=== PATIENT | male | born 1955 | race Caucasian/White ===

== ENCOUNTER → 2020-12-16 10:10 | Outpatient (BNVA) | payer MEDICARE, OTHER, SELFPAY | PROVIDERS: Family Provider Nurse Practitioner; Visit Provider Nurse Practitioner Family | DX: N52.9 Male erectile dysfunction, unspecified (principal); Z13.6 Encounter for screening for cardiovascular disorders | CPT/HCPCS: 80053; 80061; 84443; 85025 ==

== ENCOUNTER 2021-09-03 04:47 | Observation (INO) | payer MEDICARE, OTHER, SELFPAY ==
[2021-09-03 04:55] VITALS: BP 140/78; PULSE 94; RESP 18; TEMP 37.1; O2SAT 95; BMI 19.3
--- NOTE | 2021-09-03 05:03 | ED_ITS ---
Documented by User: Jesus Valdes MD 09/03/21 05:05 HPI - Abdominal Pain General: Chief Complaint: Abdominal Pain Stated Complaint: ABD Pain Cant Pee Time Seen by Provider: 09/03/21 04:49 Source: patient Mode of arrival: ambulatory Limitations: no limitations History of Present Illness: HPI narrative: 66-year-old male who states that he has not been able to urinate since yesterday he states he is having increasing pain he states pain is currently an 8 out of 10. States he is also recently diagnosed with diverticulitis had a CT scan done Monday was on Cipro and Flagyl he states has been taking those meds. He states he has never had urinary retention like this before. He also told him on the CT scan that he had a colon mass. Denies any vomiting or diarrhea Associated Symptoms: Denies chills and fever(s) Review of Systems Const: Denies: fever(s), chills, body aches or change in appetite Eyes: Denies: blurry vision or eye discomfort ENMT: Denies: throat pain or dental pain Card: Denies: chest pain Resp: Denies: dyspnea GI: Reports: abdominal pain : Reports: difficulty urinating Musc: Denies: neck pain or back pain Skin/Breast: Denies: rash Neuro: Denies: headache(s) Psych: Denies: depression David/Lymph: Denies: easy bruising All/Imm: Denies: urticaria PFSH ED PFSH: Medical History Smoker Surgical History History of bladder surgery History of inguinal hernia repair Left Family History Father Smoker Denies family history of Diabetes Cancer Hypertension Social History Smoking and tobacco status: current every day smoker cigarettes Packs smoked per day: 1 Second hand smoke exposure: No Smoking risk assessment/counseling performed?: No Alcohol intake: never Desire information about alcohol rehabilitation?: No Counseling given: No Desire information about substance/drug rehabilitation?: No Counseling given: No Caregiver/support person: No Lives independently: Yes Household members: none Housing: House Marital status: Number of children: 3 service: No Current occupational status: employed History of recent travel: No Current gender identity: Male Physical Exam Const: COMMON NORMALS: no acute distress, patient oriented x3 and healthy appearing HENMT: COMMON NORMALS: normocephalic and atraumatic HEAD & SCALP: normoce phalic and atraumatic Eye: COMMON NORMALS: Equal, round and reactive pupils present and EOMs intact bilaterally PUPIL: Yes Equal, round and reactive pupils present Neck/C-Spine: COMMON NORMALS: full ROM and supple Chest: COMMONS NORMALS: normal inspection of the chest and normal palpation of entire chest wall Resp: COMMON NORMALS: normal respiratory effort, No retractions, No use of accessory muscles and clear to auscultation bilaterally AUSCULTATION: clear to auscultation bilaterally Cardio: COMMON NORMALS: regular rate, regular rhythm and No murmurs present (Cardio) RATE: regular rate RHYTHM: regular rhythm GI: COMMON NORMALS: Normal to inspection, nondistended, normoactive bowel sounds present, Soft to palpation and no masses PALPATION: Yes Soft to palpation OTHER: suprapubic tenderness Extremity: COMMON NORMALS: normal to inspection and full ROM Neuro: COMMON NORMALS: patient oriented x3, moves all extremities and no focal motor deficits Psych: COMMON NORMALS: mental status grossly normal, Normal thought process present and cooperative THOUGHT PROCESS: Normal thought process present Skin: COMMON NORMALS: no rashes or lesions noted and no wounds GENERAL SKIN EXAM: no rashes or lesions noted Course Vital Signs: Vital signs: Vital Signs Temperature 98.7 F 09/03/21 04:55 Pulse Rate 94 09/03/21 04:55 Respiratory Rate 18 09/03/21 06:15 Blood Pressure 140/78 09/03/21 04:55 Pulse Oximetry 95 09/03/21 04:55 MDM - Abdominal Pain Lab Data: Labs: Lab Results 09/03/21 09/03/21 09/03/21 05:14 05:25 05:25 WBC 23.7 10^3/uL H 10 ^3/uL (4.0-10.0) RBC 4.77 10^6/uL 10^6 /uL (4.1-5.3) Hgb 15.5 g/dL g/dL (11.7-16.6) Hct 44.0 % % (42.0-52.0) MCV 92.2 fl fl (80-94) MCH 32.5 pg pg (28.0-34.0) MCHC 35.2 g/dL g/dL (30.0-36.0) RDW 11.7 % L % (12.1-15.1) Plt Count 391 10^3/cmm 10^3 /cmm (130-400) MPV 10.4 fL fL (7.4-10.4) Neut % (Auto) 85.4 % % Lymph % (Auto) 4.1 % % Bureau % (Auto) 9.8 % % Eos % (Auto) 0.0 % % Baso % (Auto) 0.4 % % Neut # (Auto) 20.22 10^3/uL H 1 0^3/uL (1.8-7.7) Lymph # (Auto) 1.0 10^3/uL 10^3/ uL (0.8-4.8) Bureau # (Auto) 2.3 10^3/uL H 10^ 3/uL (0.2-0.9) Eos # (Auto) 0.0 10^3/uL 10^3/ uL (0.0-0.8) Baso # (Auto) 0.1 10^3/uL 10^3/ uL (0.0-0.1) Nucleated RBC % (a uto) 0 % % Nucleated RBCs # 0.0 /100WBC /100W BC Sodium 128 mmol/L L mmol /L (136-145) Potassium 2.8 mmol/L L* mmo l/L (3.5-5.1) Chloride 90 mmol/L L mmol/ L (98-107) Carbon Dioxide 21 mmol/L L mmol/ L (22-29) Anion Gap 19.8 H (5-19) BUN 17 mg/dL mg/dL (8-23) Creatinine 0.7 mg/dL mg/dL (0.7-1.2) GFR Calculation 112.8 mL/min mL/m in (90-130) Glucose 144 mg/dL H mg/dL (65-115) Calculated Osmolal ity 270 mOsm/kg L mOs m/kg (285-295) Calcium 8.2 mg/dL L mg/dL (8.5-10.5) Total Bilirubin 0.3 mg/dL mg/dL (0.15-1.2) AST 11 U/L U/L (0-40) ALT 10 U/L U/L (0-41) Alkaline Phosphata se 96 IU/L IU/L (40-130) Total Protein 5.9 g/dL L g/dL (6.6-8.7) Albumin 3.4 g/dL L g/dL (3.5-5.2) Globulin 2.5 g/dL g/dL (1.3-4.6) Lipase 8 U/L L U/L (13-60) Urine Color Dark yellow (Yellow) Urine Appearance Clear (CLEAR) Urine pH 5 (5-7) Ur Specific Gravit y 1.015 (1.005-1.030) Urine Protein 1+ H (Negative) Urine Glucose (UA) Norm (Normal) Urine Ketones 1+ H (Negative) Urine Blood Trace H (Negative) Urine Nitrate Negative (Negative) Urine Bilirubin 1+ H (Negative) Urine Urobilinogen 1 mg/dL H mg/dL (Negative) Ur Leukocyte Jigna ase Trace H (Negative) Urine RBC Rare /hpf /hpf (0-2) Urine WBC Rare /hpf /hpf (0-5) Ur Squamous Epith Cells 0-4 /hpf H /hpf (0-5) Amorphous Sediment Not Reportable Urine Bacteria None /hpf /hpf (NONE) Hyaline Casts 0-4 /lpf H /lpf Fine Granular Cast s 0-4 /lpf H /lpf Urine Mucus 1+ /hpf /hpf Discharge Plan Discharge Patient Disposition: Admitted As Inpatient Clinical Impression: Abdominal pain, Hypokalemia, Diverticulitis, Colitis Condition: Stable Coding Level of Care Code ED Prints And Drawings Curator for Chg Fwd Exam Comprehensive Documented by User: Rosalva Baker MD 09/03/21 09:23 HPI - Abdominal Pain General: Chief Complaint: Abdominal Pain Stated Complaint: ABD Pain Cant Pee Time Seen by Provider: 09/03/21 04:49 PFSH ED PFSH: Medical History Smoker Surgical History History of bladder surgery History of inguinal hernia repair Left Family History Father Smoker Denies family history of Diabetes Cancer Hypertension Social History Smoking and tobacco status: current every day smoker cigarettes Packs smoked per day: 1 Second hand smoke exposure: No Smoking risk assessment/counseling performed?: No Alcohol intake: never Desire information about alcohol rehabilitation?: No Counseling given: No Desire information about substance/drug rehabilitation?: No Counseling given: No Caregiver/support person: No Lives independently: Yes Household members: none Housing: House Marital status: Number of children: 3 service: No Current occupational status: employed History of recent travel: No Current gender identity: Male Course Vital Signs: Vital signs: Vital Signs Temperature 98.7 F 09/03/21 04:55 Pulse Rate 94 09/03/21 04:55 Respiratory Rate 18 09/03/21 06:15 Blood Pressure 140/78 09/03/21 04:55 Pulse Oximetry 95 09/03/21 04:55 MDM - Abdominal Pain MDM Narrative: Medical decision making narrative: CT is consistent with colitis with possible diverticulitis. K of 2.8. Will replete K. Continues to be in moderate pain. Will admit for IVF and abx. S/p metronidazole and ceftriaxone in the ED. Disposition: admission Lab Data: Labs: Lab Results 09/03/21 09/03/21 09/03/21 05:14 05:25 05:25 WBC 23.7 10^3/uL H 10 ^3/uL (4.0-10.0) RBC 4.77 10^6/uL 10^6 /uL (4.1-5.3) Hgb 15.5 g/dL g/dL (11.7-16.6) Hct 44.0 % % (42.0-52.0) MCV 92.2 fl fl (80-94) MCH 32.5 pg pg (28.0-34.0) MCHC 35.2 g/dL g/dL (30.0-36.0) RDW 11.7 % L % (12.1-15.1) Plt Count 391 10^3/cmm 10^3 /cmm (130-400) MPV 10.4 fL fL (7.4-10.4) Neut % (Auto) 85.4 % % Lymph % (Auto) 4.1 % % Bureau % (Auto) 9.8 % % Eos % (Auto) 0.0 % % Baso % (Auto) 0.4 % % Neut # (Auto) 20.22 10^3/uL H 1 0^3/uL (1.8-7.7) Lymph # (Auto) 1.0 10^3/uL 10^3/ uL (0.8-4.8) Bureau # (Auto) 2.3 10^3/uL H 10^ 3/uL (0.2-0.9) Eos # (Auto) 0.0 10^3/uL 10^3/ uL (0.0-0.8) Baso # (Auto) 0.1 10^3/uL 10^3/ uL (0.0-0.1) Nucleated RBC % (a uto) 0 % % Nucleated RBCs # 0.0 /100WBC /100W BC Sodium 128 mmol/L L mmol /L (136-145) Potassium 2.8 mmol/L L* mmo l/L (3.5-5.1) Chloride 90 mmol/L L mmol/ L (98-107) Carbon Dioxide 21 mmol/L L mmol/ L (22-29) Anion Gap 19.8 H (5-19) BUN 17 mg/dL mg/dL (8-23) Creatinine 0.7 mg/dL mg/dL (0.7-1.2) GFR Calculation 112.8 mL/min mL/m in (90-130) Glucose 144 mg/dL H mg/dL (65-115) Calculated Osmolal ity 270 mOsm/kg L mOs m/kg (285-295) Calcium 8.2 mg/dL L mg/dL (8.5-10.5) Total Bilirubin 0.3 mg/dL mg/dL (0.15-1.2) AST 11 U/L U/L (0-40) ALT 10 U/L U/L (0-41) Alkaline Phosphata se 96 IU/L IU/L (40-130) Total Protein 5.9 g/dL L g/dL (6.6-8.7) Albumin 3.4 g/dL L g/dL (3.5-5.2) Globulin 2.5 g/dL g/dL (1.3-4.6) Lipase 8 U/L L U/L (13-60) Urine Color Dark yellow (Yellow) Urine Appearance Clear (CLEAR) Urine pH 5 (5-7) Ur Specific Gravit y 1.015 (1.005-1.030) Urine Protein 1+ H (Negative) Urine Glucose (UA) Norm (Normal) Urine Ketones 1+ H (Negative) Urine Blood Trace H (Negative) Urine Nitrate Negative (Negative) Urine Bilirubin 1+ H (Negative) Urine Urobilinogen 1 mg/dL H mg/dL (Negative) Ur Leukocyte Jigna ase Trace H (Negative) Urine RBC Rare /hpf /hpf (0-2) Urine WBC Rare /hpf /hpf (0-5) Ur Squamous Epith Cells 0-4 /hpf H /hpf (0-5) Amorphous Sediment Not Reportable Urine Bacteria None /hpf /hpf (NONE) Hyaline Casts 0-4 /lpf H /lpf Fine Granular Cast s 0-4 /lpf H /lpf Urine Mucus 1+ /hpf /hpf Discharge Plan Discharge Patient Disposition: Admitted As Inpatient Clinical Impression: Abdominal pain, Hypokalemia, Diverticulitis, Colitis Condition: Stable Coding Level of Care Code ED Prints And Drawings Curator for Mang Fwd Exam Comprehensive
--- NOTE | 2021-09-03 05:39 | CTR_ITS ---
PROCEDURE INFORMATION: Exam: CT Abdomen And Pelvis With Contrast Exam date and time: 09/03/2021 5:39 AM Age: 66 years old Clinical indication: Abdominal tenderness and bloating; Abdominal pain; Generalized; Prior surgery; Surgery date: 6+ months; Surgery type: Bladder, inguinal hernia repair; Patient HX: Diffuse abd pain x1 week, dysuria HX of diverticulitis TECHNIQUE: Imaging protocol: Computed tomography of the abdomen and pelvis with contrast. Total images: 229 Radiation optimization: All CT scans at this facility use at least one of these dose optimization techniques: automated exposure control; mA and/or kV adjustment per patient size (includes targeted exams where dose is matched to clinical indication); or iterative reconstruction. Contrast material: OMNI 300; Contrast volume: 95 ml; Contrast route: INTRAVENOUS (IV); COMPARISON: CR XR acute abdomen series [id number] 09/03/2021 7:00 AM RADIATION DOSE METRICS: Total DLP (mGy-cm): 883.7 FINDINGS: Lungs: Nonspecific mild bibasilar opacities left greater than right, favoring atelectasis or pneumonia. Liver: Normal. No mass. Gallbladder and bile ducts: Normal. No calcified stones. No ductal dilation. Pancreas: Normal. No ductal dilation. Spleen: Normal. No splenomegaly. Adrenal glands: Normal. No mass. Kidneys and ureters: Normal. No hydronephrosis. Stomach and bowel: Distended colon with prominent folds/wall thickening seen in the distal sigmoid/rectosigmoid colon with a few small diverticuli detected. Findings felt to represent a colitis. Appendix: No evidence of appendicitis. Intraperitoneal space: Unremarkable. No free air. No significant fluid collection. Vasculature: Moderate atherosclerotic disease is evident. Dilated infrarenal aorta measured at 2.4 cm. Incidental phleboliths noted. Lymph nodes: Unremarkable. No enlarged lymph nodes. Urinary bladder: A Castañeda catheter decompresses urinary bladder. Reproductive: Prostatomegaly noted. Bones/joints: Diffuse osteopenia noted. Multilevel degenerative disc disease is noted with vacuum phenomenon. Osteophytes are noted extending from the vertebrae. No acute spinal pathology is detected. Soft tissues: Small bowel contained within a nonobstructive right inguinal hernia. CT/CT abdomen pelvis w con* [id number] IMPRESSION: 1. Nonspecific mild bibasilar opacities left greater than right, favoring atelectasis or pneumonia. 2. Dilated infrarenal aorta measured at 2.4 cm. 3. Small bowel contained within a nonobstructive right inguinal hernia. 4. Distended colon with prominent folds/wall thickening seen in the distal sigmoid/rectosigmoid colon with a few small diverticuli detected. Findings felt to represent a colitis. Radiation Dose CTDIVOL = (mGy): DLP = 883.7 (mGy-cm)
[2021-09-03 05:47] LABS: Bilirubin Urine 1+ (Negative); Blood Urine Trace (Negative); Glucose Urine UA Norm (Normal); Ketones Urine 1+ (Negative); Leukocyte Esterase Urine Trace (Negative); Nitrate Urine Negative (Negative); Protein Urine 1+ (Negative); Specific Gravity, Urine 1.015 (1.005-1.030); Urine Appearance Clear (CLEAR); Urine Color Dark Yellow (Yellow); Urobilinogen Urine 1 mg/dL (Negative); pH Urine 5 (5-7)
[2021-09-03 05:48] LABS: Add Urine Microscopic? YES; RBC Urine RARE /hpf (0-2); Squamous Epithelial Cell Urine 0-4 /hpf (0-5); WBC Urine RARE /hpf (0-5)
[2021-09-03 05:49] LABS: Add Urine Culture? No; Fine Granular Casts Urine 0-4 /lpf; Hyaline Casts Urine 0-4 /lpf; Mucus Urine 1+ /hpf
[2021-09-03 05:59] LABS: Basophils # 0.1 10^3/uL (0.0-0.1); Basophils % 0.4 %; Hemoglobin 15.5 g/dL (11.7-16.6); Lymphocytes % 4.1 %; Mean Corpuscular HGB Conc 35.2 g/dL (30.0-36.0); Mean Corpuscular Hemoglobin 32.5 pg (28.0-34.0); Mean Corpuscular Volume 92.2 fl (80-94); Mean Platelet Volume 10.4 fL (7.4-10.4); Monocytes # 2.3 10^3/uL (0.2-0.9); Monocytes % 9.8 %; Neutrophils # 20.22 10^3/uL (1.8-7.7); Neutrophils % 85.4 %; Nucleated Red Blood Cells % 0 %; Platelet Count 391 10^3/cmm (130-400); Red Blood Count 4.77 10^6/uL (4.1-5.3); Red Cell Distribution Width 11.7 % (12.1-15.1); White Blood Count 23.7 10^3/uL (4.0-10.0)
[2021-09-03 06:15] VITALS: RESP 18
[2021-09-03] MEDS: morphine 4 mg/mL SDV 1 mL IVP (06:15)
[2021-09-03] MEDS: ondansetron 2 mg/ML SDV 2 mL 4 MG IVP (06:15)
--- NOTE | 2021-09-03 06:53 | XR_ITS ---
WS: [id number] Acute abdomen series, AP portable 09/03/2021 Clinical Data: eval free air and sbo Comparison: None. Findings: In the chest there are no nodules, masses or effusions. The heart is normal. The pulmonary vascularity is not increased. There is minimal atelectasis over the surface of left diaphragm. The ao rtic arch and descending thoracic aorta show calcification and tortuosity. No free air is seen beneath the diaphragms. No abnormal intra-abdominal masses or calcifications are seen. There is contrast material within the colon. The colon is dilated. XR/XR acute abdomen series [id number] Impression: 1. Negative chest. 2. Marked colonic dilatation which may represent a severe ileus or colon obstr uction.
[2021-09-03 07:07] LABS: Alanine Aminotransferase 10 U/L (0-41); Albumin Level 3.4 g/dL (3.5-5.2); Alkaline Phosphatase 96 IU/L (40-130); Anion Gap 19.8 (5-19); Aspartate Amino Transferase 11 U/L (0-40); Blood Urea Nitrogen 17 mg/dL (8-23); Calcium 8.2 mg/dL (8.5-10.5); Carbon Dioxide 21 mmol/L (22-29); Chloride 90 mmol/L (98-107); Globulin 2.5 g/dL (1.3-4.6); Glomerular Filtration Rate 112.8 mL/min (90-130); Glucose 144 mg/dL (65-115); Lipase 8 U/L (13-60); Osmolality Calculated 270 mOsm/kg (285-295); Sodium 128 mmol/L (136-145); Total Bilirubin 0.3 mg/dL (0.15-1.2); Total Protein 5.9 g/dL (6.6-8.7)
[2021-09-03 07:08] LABS: Potassium 2.8 mmol/L (3.5-5.1)
[2021-09-03] MEDS: lidocaine 1% 5 ML in potassium chloride premix 100 ML 50 ML IV (08:58)
[2021-09-03] MEDS: cefTRIAXone 1,000 MG in sodium chloride 0.9% (plus) 50 ML 100 MG IV (09:23)
[2021-09-03] MEDS: metroNIDAZOLE 500 MG Tablet PO (09:35)
[2021-09-03 11:31] VITALS: BP 151/76; PULSE 93; RESP 19; O2SAT 92
--- NOTE | 2021-09-03 13:59 | PC.NURSE ---
Pt requesting something mild for pain, prefers Tylenol. Dr. Sandhu called, Dr. Sandhu will put new orders in
--- NOTE | 2021-09-03 14:05 | P.HP_ITS ---
Providers/Chief Complaint Chief Complaint: ABD Pain Cant Pee History of Present Illness Camron Pantoja is a 66 year old male who presented today with chief complaint of worsening abdominal pain. Patient stating that his symptoms started on Monday with diffuse dull abdominal pain which was getting worse and became sharp, he experienced 1 episode of emesis on Monday, he did not notice any fever. He has been constipated recently. Patient is stating that he was diagnosed with diverticulitis few months ago and had an appointment with Dr. Murillo for colonoscopy on next Monday. He is not vaccinated for COVID-19. Because of worsening of his symptoms he decided to come to the hospital for further evaluation For his symptoms he was seen in another facility where he was given ciprofloxa aníbal and Flagyl, he also got contrast study which made him nauseous, for last 24 hours he was not able to urinate much that prompted his visit to the ER His last bowel movement was this morning, Castañeda catheter was placed in the ER he put out 800 cc of urine, CT abdomen pelvis consistent with colitis/diverticulitis. Leukocytosis 23, he does not meet sepsis criteria He received antibiotics in the ER Hemodynamically stable Hypokalemia: Repleted CT/CT abdomen pelvis w con* [id number] IMPRESSION: 1. Nonspecific mild bibasilar opacities left greater than right, favoring atelectasis or pneumonia. 2. Dilated infrarenal aorta measured at 2.4 cm. 3. Small bowel contained within a nonobstructive right inguinal hernia. 4. Distended colon with prominent folds/wall thickening seen in the distal sigmoid/rectosigmoid colon with a few small diverticuli detected. Findings felt to represent a colitis Review of Systems Const: Reports: chills, body aches and fatigue; Denies: fever(s) Eyes: Denies: change in vision ENMT: Denies: throat pain Card: Denies: chest pain Resp: Denies: dyspnea GI: Reports: abdominal pain, nausea, vomiting and constipation : Reports: difficulty urinating; Denies: flank pain Musc: Denies: neck pain Skin/Breast: Denies: rash Neuro: Denies: headache(s) Psych: Denies: anxiety Endo: Denies: polyuria David/Lymph: Denies: easy bruising All/Imm: Denies: urticaria Medications/Allergies Home Medications Medication Instructions Recorded Confirmed Last Taken Type sildenafil 50 mg tablet 50 mg PO DAILY PRN #10 tab 12/16/20 09/03/21 Unknown Rx ciprofloxacin HCl 500 mg PO BID 09/03/21 09/03/21 09/02/21 History cyclobenzaprine 10 mg PO BEDTIME PRN 09/03/21 09/03/21 Unknown History metronidazole 500 mg PO TID 09/03/21 09/03/21 09/02/21 History ondansetron HCl 4 mg PO TID PRN 09/03/21 09/03/21 Unknown History Allergies Allergy/AdvReac Type Severity Reaction Status Date / Time No Known Allergies Allergy Verified 12/16/20 09:39 PFSH Acute PFSH: Medical History Diverticulitis Erectile dysfunction Smoker Surgical History History of bladder surgery History of inguinal hernia repair Left Family History Father Smoker Denies family history of Diabetes Cancer Hypertension Social History Smoking and tobacco status: current every day smoker cigarettes Packs smoked per day: 1 Second hand smoke exposure: No Smoking risk assessment/counseling performed?: No Alcohol intake: never Desire information about alcohol rehabilitation?: No Counseling given: No Desire information about substance/drug rehabilitation?: No Counseling given: No Caregiver/support person: No Lives independently: Yes Household members: none Housing: House Marital status: Number of children: 3 service: No Current occupational status: employed History of recent travel: No Current gender identity: Male Vitals/I&O/Wt Last Vital Signs Temp 98.7 F 09/03/21 04:55 Pulse 93 09/03/21 11:31 Resp 19 H 09/03/21 11:31 BP 151/76 09/03/21 11:31 Pulse Ox 92 09/03/21 11:31 09/02/21 09/03/21 09/03/21 22:59 06:59 14:59 Intake Total 155 / 155 Balance 155 / 155 Weight last 48 hrs Weight 64.864 kg Physical Exam Narrative: EXAM NARRATIVE: Patient is laying supine Saturating well on room air No active respiratory distress S1, S2 Clinically looks dehydrated Abdomen soft nontender bowel sound present Right-sided inguinal hernia which is reducible EOMI, PERRLA Nonfocal neuro exam Appropriate mood and affect Castañeda cath draining concentrated urine No joint swelling Dehydrated, dry skin with wrinkling Urinary Catheter Management^: Castañeda: Cath Placed During This Visit: yes Urinary Catheter Date of Insertion: 09/03/21 Urinary Catheter Time of Insertion: 05:18 Data : 09/03/21 05:25 09/03/21 05:25 A&P Assessment and plan (1) Diverticulitis: Status: Acute (2) Hypokalemia: Status: Acute (3) Abdominal pain: Status: Acute (4) Colitis: Status: Acute Additional A&P Information Colitis/diverticulitis Leukocytosis, no signs of sepsis Start IV antibiotics, keep him on clear liquids Patient will need colonoscopy outpatient within next 4 to 6 weeks he already had an appointment with Dr. Murillo next Monday Last bowel movement this morning, no active signs of colon obstruction, colonic dilation could be ileus Hypokalemia: Repleted Urinary retention: 800 mL urine obtained with placement of Castañeda catheter, patie nt does not want Castañeda catheter placement, start voiding trial, requested in the ER to remove Castañeda catheter Start tamsulosin and finasteride check PSA No back pain No gait ataxia Full code Clear liquid diet DVT prophylaxis Lovenox Infrarenal aortic measurement 2.4 cm Attestations Medical Necessity Statement*: Anticipating discharge within 48 hours Time Spent in Patient Care: Greater than 35 minutes Coding Level of Care Code Acute Doughnut Maker for [facility] Fwd Diagnoses Diverticulitis K57.92 Hypokalemia E87.6 Abdominal pain R10.9 Colitis K52.9
[2021-09-03] MEDS: acetaminophen 500 mg Tablet PO (14:14)
[2021-09-03 15:36] VITALS: BP 135/74; PULSE 98; RESP 19; O2SAT 91
--- NOTE | 2021-09-03 15:37 | PC.NURSE ---
Report called to floor, given to CHARU Hernandez.
[2021-09-03] MEDS: piperacillin-tazobactam 3.375 GM in sodium chloride 0.9% (plus) 50 ML IV ×2 (17:32→21:45)
[2021-09-03] MEDS: sodium chloride 0.9% 1,000 ML 75 ML IV (17:33)
[2021-09-03 20:26] VITALS: BP 142/78; PULSE 90; RESP 17; TEMP 36.7; O2SAT 90
[2021-09-03 20:39] VITALS: BMI 18.9
[2021-09-03 20:52] LABS: Potassium 3.7 mmol/L (3.5-5.1)
--- NOTE | 2021-09-03 21:16 | PC.NURSE ---
Pt declined milk of mag this evening stating I do not want to be going to the bathroom all night . Education given. Pt requested medication in the morning.
[2021-09-03 23:55] VITALS: BP 136/75; PULSE 89; RESP 17; TEMP 36.7; O2SAT 91
[2021-09-04] MEDS: sodium chloride 0.9% 1,000 ML 75 ML IV (03:27)
[2021-09-04] MEDS: magnesium hydroxide 30 mL UDC 15 ML PO (03:36)
[2021-09-04 04:00] VITALS: BP 138/80; PULSE 90; RESP 18; TEMP 36.7; O2SAT 92
--- NOTE | 2021-09-04 04:00 | XRR_ITS ---
PROCEDURE INFORMATION: Exam: XR Abdomen Exam date and time: 09/04/2021 4:00 AM Age: 66 years old Clinical indication: Abdominal pain; Additional info: Ileus TECHNIQUE: Imaging protocol: XR of the abdomen. Views: Frontal supine view of the abdomen. 1 View. Total images: 1 COMPARISON: CT abdomen pelvis w con* [id number] 09/03/2021 7:20 AM FINDINGS: Gastrointestinal tract: Distended colonic loops again noted and extending to rectosigmoid colon similar in appearance to prior CT. Vasculature: Incidental phleboliths noted. Bones/joints: Unremarkable. Soft tissues: Small bowel loops noted within the right scrotum consistent with inguinal hernia unchanged. XR/XR K[facility] portable [id number] IMPRESSION: 1. Distended colonic loops again noted and extending to rectosigmoid colon similar in appearance to prior CT. 2. Small bowel loops noted within the right scrotum consistent with inguinal hernia unchanged. Radiation Dose CTDIVOL = (mGy): DLP = (mGy-cm)
[2021-09-04] MEDS: piperacillin-tazobactam 3.375 GM in sodium chloride 0.9% (plus) 50 ML IV (06:05)
[2021-09-04 06:22] LABS: Basophils # 0.1 10^3/uL (0.0-0.1); Basophils % 0.3 %; Hematocrit 46.6 % (42.0-52.0); Hemoglobin 15.1 g/dL (11.7-16.6); Lymphocytes # 1.2 10^3/uL (0.8-4.8); Lymphocytes % 5.4 %; Mean Corpuscular HGB Conc 32.4 g/dL (30.0-36.0); Mean Corpuscular Hemoglobin 31.5 pg (28.0-34.0); Mean Corpuscular Volume 97.1 fl (80-94); Mean Platelet Volume 11.4 fL (7.4-10.4); Monocytes # 1.9 10^3/uL (0.2-0.9); Monocytes % 8.4 %; Neutrophils # 18.87 10^3/uL (1.8-7.7); Neutrophils % 85.4 %; Nucleated Red Blood Cells % 0 %; Platelet Count 320 10^3/cmm (130-400); Red Cell Distribution Width 11.6 % (12.1-15.1); White Blood Count 22.1 10^3/uL (4.0-10.0)
[2021-09-04 08:00] VITALS: BP 136/86; PULSE 84; RESP 16; TEMP 36.9; O2SAT 98
[2021-09-04 08:51] LABS: Alanine Aminotransferase 12 U/L (0-41); Albumin Level 3.5 g/dL (3.5-5.2); Alkaline Phosphatase 97 IU/L (40-130); Aspartate Amino Transferase 14 U/L (0-40); Blood Urea Nitrogen 10 mg/dL (8-23); Carbon Dioxide 23 mmol/L (22-29); Chloride 99 mmol/L (98-107); Globulin 2.1 g/dL (1.3-4.6); Glomerular Filtration Rate 166.4 mL/min (90-130); Glucose 104 mg/dL (65-115); Magnesium 2.2 mg/dL (1.7-2.3); Osmolality Calculated 277 mOsm/kg (285-295); Sodium 134 mmol/L (136-145); Total Bilirubin 0.4 mg/dL (0.15-1.2); Total Protein 5.6 g/dL (6.6-8.7)
[2021-09-04 08:55] LABS: Anion Gap 15.9 (5-19); Potassium 3.9 mmol/L (3.5-5.1)
[2021-09-04 11:11] VITALS: BP 160/84; PULSE 96; RESP 16; TEMP 36.8; O2SAT 90
--- NOTE | 2021-09-04 11:11 | PM.DCS ---
Discharge Providers Date of Admission: 09/03/21 09:21 Date of Discharge: September 04, 2021 Attending Provider at Admission: Ty Sun MD Attending Provider at Discharge: Ty Sun MD Diagnoses at Discharge Discharge Diagnosis (1) Diverticulitis: Status: Acute (2) Hypokalemia: Status: Acute (3) Abdominal pain: Status: Acute (4) Colitis: Status: Acute Reason for Visit Reason for Visit: [place] [facility] Hospital Course History of Present Illness Camron Pantoja is a 66 year old male who presented today with chief complaint of worsening abdominal pain. Patient stating that his symptoms started on Monday with diffuse dull abdominal pain which was getting worse and became sharp, he experienced 1 episode of emesis on Monday, he did not notice any fever. He has been constipated recently. Patient is stating that he was diagnosed with diverticulitis few months ago and had an appointment with Dr. Murillo for colonoscopy on next Monday. He is not vaccinated for COVID-19. Because of worsening of his symptoms he decided to come to the hospital for further evaluation For his symptoms he was seen in another facility where he was given ciprofloxacin and Flagyl, he also got contrast study which made him nauseous, for last 24 hours he was not able to urinate much that prompted his visit to the ER His last bowel movement was this morning, Castañeda catheter was placed in the ER he put out 800 cc of urine, CT abdomen pelvis consistent with colitis/diverticulitis. Leukocytosis 23, he does not meet sepsis criteria He received antibiotics in the ER Hemodynamically stable Hypokalemia: Repleted CT/CT abdomen pelvis w con* [id number] IMPRESSION: 1. Nonspecific mild bibasilar opacities left greater than right, favoring atelectasis or pneumonia. 2. Dilated infrarenal aorta measured at 2.4 cm. 3. Small bowel contained within a nonobstructive right inguinal hernia. 4. Distended colon with prominent folds/wall thickening seen in the distal sigmoid/rectosigmoid colon with a few small diverticuli detected. Findings felt to represent a colitis Hosp Course Patient was admitted for management evaluation of difficulty urination and colitis. He was started on clear liquid diet, IV Zosyn, Castañeda catheter was placed in the ER which revealed 800 cc of urine right away, patient was not comfortable with a Castañeda catheter, requested voiding trial, he was able to void 4-5 times during his hospitalization, with clear liquid diet he did not experience any nausea or vomiting or abdominal pain. At home she has finished 5 to 7 days of ciprofloxacin and Flagyl which I am willing to continue to finish 14-day regimen. He remained afebrile, creatinine stayed normal. He did not want to stay until Monday and requested to be discharged home. At the time of discharge, ciprofloxacin, Flagyl, tamsulosin were added. He has history of chronic right inguinal hernia, did not show any signs of strangulation or obstruction, it is reducible, he has an appointment with Dr. Murillo for colonoscopy. PSA within normal range No signs of UTI. Physical Exam Narrative: EXAM NARRATIVE: male Euvolemic Abdomen soft Tolerating clear liquid diet Saturating well on room air Able to void urine EOMI, PERRLA S1, S2 Nonfocal neuro exam Urinary Catheter Management^: Castañeda: Cath Placed During This Visit: yes Urinary Catheter Date of Insertion: 09/03/21 Urinary Catheter Time of Insertion: 05:18 Discharge Data Data Completed and Pending: Completed Studies During Hospitalization Category Date Time Status CT abdomen pelvis w con* [id number] Urge nt Cat Scan 09/03/21 05:39 Completed XR KUB portable 7 4018 AM LABS Exams 09/04/21 04:00 Completed XR acute abdomen series [id number] Urgen t Exams 09/03/21 06:53 Completed Labs from last 24 hours 09/04/21 09/04/21 09/04/21 08:14 06:13 06:13 WBC RBC Hgb Hct MCV MCH MCHC RDW Plt Count MPV Neut % (Auto) Lymph % (Auto) [place] % (Auto) Eos % (Auto) Baso % (Auto) Neut # (Auto) Lymph # (Auto) [place] # (Auto) Eos # (Auto) Baso # (Auto) Nucleated RBC % (a uto) Nucleated RBCs # Sodium 134 L Cancelled Potassium 3.9 Cancelled Chloride 99 Cancelled Carbon Dioxide 23 Cancelled Anion Gap 15.9 Cancelled BUN 10 Cancelled Creatinine 0.5 L Cancelled GFR Calculation 166.4 H Cancelled Glucose 104 Cancelled Calculated Osmolal ity 277 L Cancelled Calcium 8.0 L Cancelled Magnesium 2.2 Cancelled Total Bilirubin 0.4 Cancelled AST 14 Cancelled ALT 12 Cancelled Alkaline Phosphata se 97 Cancelled Total Protein 5.6 L Cancelled Albumin 3.5 Cancelled Globulin 2.1 Cancelled Prostate Specific Ag 09/04/21 09/03/21 09/03/21 06:13 20:20 05:25 WBC 22.1 H RBC 4.80 Hgb 15.1 Hct 46.6 MCV 97.1 H D MCH 31.5 MCHC 32.4 D RDW 11.6 L Plt Count 320 MPV 11.4 H Neut % (Auto) 85.4 Lymph % (Auto) 5.4 [place] % (Auto) 8.4 Eos % (Auto) 0.0 Baso % (Auto) 0.3 Neut # (Auto) 18.87 H Lymph # (Auto) 1.2 [place] # (Auto) 1.9 H Eos # (Auto) 0.0 Baso # (Auto) 0.1 Nucleated RBC % (a uto) 0 Nucleated RBCs # 0.0 Sodium Potassium 3.7 Chloride Carbon Dioxide Anion Gap BUN Creatinine GFR Calculation Glucose Calculated Osmolal ity Calcium Magnesium Total Bilirubin AST ALT Alkaline Phosphata se Total Protein Albumin Globulin Prostate Specific Ag 2.220 Vitals: Last Vital Signs Temp 98.5 F 09/04/21 08:00 Pulse 84 09/04/21 08:00 Resp 16 09/04/21 08:00 BP 136/86 09/04/21 08:00 Pulse Ox 98 09/04/21 08:00 Discharge Plan Discharge Patient Disposition: Home Condition: Stable Prescriptions: New tamsulosin 0.4 mg Capsule 0.4 mg PO DAILY Qty: 30 RF: 2 Flagyl 500 mg tablet 500 mg PO Q8H 7 Days Qty: 21 RF: 0 ciprofloxacin HCl 500 mg tablet 500 mg PO Q12H Qty: 20 RF: 0 Zofran 4 mg tablet 4 mg PO DAILY 3 Days Qty: 10 RF: 0 Continued sildenafil [Viagra] 50 mg tablet 50 mg PO DAILY PRN (Reason: sexual activity) Qty: 10 RF: 3 ondansetron HCl 4 mg tablet 4 mg PO TID PRN (Reason: Nausea) RF: 0 metronidazole 500 mg tablet 500 mg PO TID RF: 0 ciprofloxacin HCl 500 mg tablet 500 mg PO BID RF: 0 cyclobenzaprine 10 mg tablet 10 mg PO BEDTIME PRN (Reason: Muscle Pain) RF: 0 Discharge Orders: Discharge Order (Routine); Ordered 09/04/21 Ordered By: Ty Sun Patient Instructions: Ciprofloxacin (By mouth) (Cipro), Metronidazole (By mouth) (Flagyl, Flagyl 375, Flagyl ER), Ondansetron (By mouth) (Zofran, Zofran ODT, Zuplenz), Tamsulosin (By mouth) (Flomax), Diverticulitis (DC), Colitis (ED), Opioid Safety Discharge Attestations Time Spent in Discharge Care*: less than 30 min Quality Metrics Clinical Quality Measures During this hospital stay, did patient experience: None Coding Level of Care Code Acute Chg FW DC note Diagnoses Diverticulitis K57.92 Hypokalemia E87.6 Abdominal pain R10.9 Colitis K52.9
== END 2021-09-04 12:36 | disposition home or self-care (01) ==
LOC: ER 11:43 → MEDSURG 15:02
PROVIDERS: Emergency Medicine; Student in an Organized Health Care Education/Training Program; Admitting Provider Internal Medicine; Emergency Provider Emergency Medicine; Visit Provider Internal Medicine
DX: K57.92 Diverticulitis of intestine, part unspecified, without perforation or abscess without bleeding (principal); E87.6 Hypokalemia; K52.9 Noninfective gastroenteritis and colitis, unspecified; R10.84 Generalized abdominal pain; R33.9 Retention of urine, unspecified
CPT/HCPCS: 36415; 51702; 74018; 74022; 74177; 80053; 81001; 83690; 83735; 84132; 84153; 85025; 96365; 96366; 96367; 96375; 99291; G0378; J0696; J2270; J2405; J2543; J3480; J7030; Q9967

== ENCOUNTER 2021-09-09 07:54 | Inpatient (IN) | payer MEDICARE, OTHER, SELFPAY ==
[2021-09-09] VITALS (20 sets, daily range): BP systolic 95–169; BP diastolic 61–98; PULSE 82–104; RESP 10–18; TEMP 36–36.8; O2SAT 90–100; BMI 19.3
--- NOTE | 2021-09-09 08:25 | W.ED.ABDPA2 ---
HPI - Abdominal Pain General: Chief Complaint: Abdominal Pain Stated Complaint: ABD PAIN Time Seen by Provider: 09/09/21 08:22 History of Present Illness: HPI narrative: 66-year-old with history of diverticulitis presents due to abdominal pain and distention. States this is been worsening for the past 2 weeks. No nausea vomiting diarrhea or constipation. Last bowel movement was this morning. Denies any chest pain or shortness of breath. Denies fevers or chills. Denies history of liver disease or heart failure. Review of Systems Narrative: - CONSTITUTIONAL: Denies weight loss, fever and chills. - HEENT: Denies changes in vision and hearing. - RESPIRATORY: Denies SOB and cough. - CV: Denies palpitations and CP. - GI: As above - : Denies dysuria and urinary frequency. - MSK: Denies myalgia and joint pain. - SKIN: Denies rash and pruritus. - NEUROLOGICAL: Denies headache, weakness, numbness and syncope. - PSYCHIATRIC: Denies suicidal ideation PFSH ED PFSH: Medical History Diverticulitis Erectile dysfunction Smoker Surgical History History of bladder surgery History of inguinal hernia repair Left Family History Father Smoker Denies family history of Diabetes Cancer Hypertension Social History Smoking and tobacco status: current every day smoker cigarettes Packs smoked per day: 1 Second hand smoke exposure: No Smoking risk assessment/counseling performed?: No Alcohol intake: never Desire information about alcohol rehabilitation?: No Counseling given: No Desire information about substance/drug rehabilitation?: No Counseling given: No Caregiver/support person: No Lives independently: Yes Household members: none Housing: House Marital status: Number of children: 3 service: No Current occupational status: employed History of recent travel: No Current gender identity: Male Physical Exam Narrative: EXAM NARRATIVE: - GENERAL: Alert and oriented x 3. No acute distress. Well-nourished. - EYES: EOMI. Anicteric. - HENT: Atraumatic, no C-spine tenderness. Moist mucous membranes. No scleral icterus. No cervical lymphadenopathy. - LUNGS: Clear to auscultation bilaterally. No accessory muscle use. Equal lung sounds bilaterally. No respiratory distress. - CARDIOVASCULAR: Regular rate and rhythm. No murmur. No JVD. - ABDOMEN: Mild distention diffuse tenderness. Negative CVA tenderness bilaterally, no rebound or guarding, negative Guillen sign. No palpable masses. - EXTREMITIES: No edema. Non-tender. - SKIN: No rashes or lesions. Warm. - NEUROLOGIC: No meningismus or focal neurological deficits. CN II-XII grossly intact. - PSYCHIATRIC: Cooperative. Appropriate mood and affect. Course Vital Signs: Vital signs: Vital Signs Temperature 97.2 F L 09/09/21 08:14 Pulse Rate 99 09/09/21 08:08 Respiratory Rate 18 09/09/21 08:58 Blood Pressure 158/92 09/09/21 08:08 Pulse Oximetry 93 09/09/21 08:58 MDM - Abdominal Pain MDM Narrative: Medical decision making narrative: 66-year-old male with history of diverticulitis presents due to abdominal pain. Has diffuse abdominal tenderness. White count is elevated to 30s. It is concern for sepsis and sepsis order set initiated. CT scan concerning for pneumatosis and mesenteric ischemia. Discussed with surgery. He will likely require being taken to the OR. Further evaluation management per surgery team. Patient in stable condition. Lab Data: Labs: Lab Results 09/09/21 09/09/21 09/09/21 08:19 08:19 08:19 WBC 34.0 10^3/uL H* 1 0^3/uL (4.0-10.0) RBC 4.77 10^6/uL 10^6 /uL (4.1-5.3) Hgb 15.3 g/dL g/dL (11.7-16.6) Hct 43.0 % % (42.0-52.0) MCV 90.1 fl fl (80-94) MCH 32.1 pg pg (28.0-34.0) MCHC 35.6 g/dL g/dL (30.0-36.0) RDW 11.9 % L % (12.1-15.1) Plt Count 565 10^3/cmm H 10 ^3/cmm (130-400) MPV 9.5 fL fL (7.4-10.4) Neut % (Auto) 88.4 % % Lymph % (Auto) 3.9 % % [place] % (Auto) 6.1 % % Eos % (Auto) 0.0 % % Baso % (Auto) 0.3 % % Neut # (Auto) 30.08 10^3/uL H 1 0^3/uL (1.8-7.7) Lymph # (Auto) 1.3 10^3/uL 10^3/ uL (0.8-4.8) [place] # (Auto) 2.1 10^3/uL H 10^ 3/uL (0.2-0.9) Eos # (Auto) 0.0 10^3/uL 10^3/ uL (0.0-0.8) Baso # (Auto) 0.1 10^3/uL 10^3/ uL (0.0-0.1) Nucleated RBC % (a uto) 0 % % Nucleated RBCs # 0.0 /100WBC /100W BC Sodium 128 mmol/L L mmol /L (136-145) Potassium 3.2 mmol/L L mmol /L (3.5-5.1) Chloride 89 mmol/L L mmol/ L (98-107) Carbon Dioxide 23 mmol/L mmol/L (22-29) Anion Gap 19.2 H (5-19) BUN 12 mg/dL mg/dL (8-23) Creatinine 0.6 mg/dL L mg/dL (0.7-1.2) GFR Calculation 134.8 mL/min H mL /min (90-130) Glucose 164 mg/dL H mg/dL (65-115) Calculated Osmolal ity 269 mOsm/kg L mOs m/kg (285-295) Lactate 1.5 mmol/L mmol/L (0.5-2.2) Calcium 8.3 mg/dL L mg/dL (8.5-10.5) Total Bilirubin 0.2 mg/dL mg/dL (0.15-1.2) AST 15 U/L U/L (0-40) ALT 24 U/L U/L (0-41) Alkaline Phosphata se 114 IU/L IU/L (40-130) Total Protein 5.8 g/dL L g/dL (6.6-8.7) Albumin 3.4 g/dL L g/dL (3.5-5.2) Globulin 2.4 g/dL g/dL (1.3-4.6) Lipase 24 U/L U/L (13-60) SARS-CoV-2 Ag (Rap id) 09/09/21 09/09/21 09:11 09:20 WBC RBC Hgb Hct MCV MCH MCHC RDW Plt Count MPV Neut % (Auto) Lymph % (Auto) [place] % (Auto) Eos % (Auto) Baso % (Auto) Neut # (Auto) Lymph # (Auto) [place] # (Auto) Eos # (Auto) Baso # (Auto) Nucleated RBC % (a uto) Nucleated RBCs # Sodium Potassium Chloride Carbon Dioxide Anion Gap BUN Creatinine GFR Calculation Glucose Calculated Osmolal ity Lactate 1.0 mmol/L mmol/L (0.5-2.2) Calcium Total Bilirubin AST ALT Alkaline Phosphata se Total Protein Albumin Globulin Lipase SARS-CoV-2 Ag (Rap id) Negative (Negative) Discharge Plan Discharge Prescriptions: No Action sildenafil [Viagra] 50 mg tablet 50 mg PO DAILY PRN (Reason: sexual activity) Qty: 10 RF: 3 Tylenol Ex Str Rapid Release 500 mg Tablet 1,000 mg PO QPM RF: 0 nicotine 21 mg/24 hr Patch 24 Hour 1 patch TRANSDERMAL DAILY RF: 0 ibuprofen 200 mg Tablet 800 mg PO DAILY RF: 0 metronidazole [Flagyl] 500 mg tablet 500 mg PO Q8H RF: 0 ciprofloxacin HCl 500 mg tablet 500 mg PO Q12H RF: 0 tamsulosin 0.4 mg capsule 0.4 mg PO DAILY@12 RF: 0 ondansetron HCl 4 mg tablet 4 mg PO TID PRN (Reason: Nausea) RF: 0 cyclobenzaprine 10 mg tablet 10 mg PO BEDTIME PRN (Reason: Muscle Pain) RF: 0 Coding Level of Care Code ED Emergency Room Clinician for Cherri Gasca
--- NOTE | 2021-09-09 08:28 | CT_ITS ---
WS: [id number] CT ABDOMEN AND PELVIS WITH CONTRAST HISTORY: Upper abdominal pain for 2 weeks. TECHNIQUE: Imaging performed of the abdomen and pelvis with IV contrast. Single phase imaging of the abdomen. Coronal and sagittal reformats are submitted. All CT scans at [facility] use at [address] one of these dose optimization techniques: automated exposure control; mA and/or kV adjustment per patient size (includes targeted exams where dose is matched to clinical indication); or iterative re construction. IV CONTRAST: Omnipaque 300; 95 mL IV. Oral contrast: No DLP: 1210.81 mGy.cm COMPARISON: 09/03/2021 Lower thorax: Scattered bibasilar opacifications and interstitial thickening. Subsegmental LEFT basil ar atelectasis. There is also small LEFT pleural effusion which has progressed minimally since the pr ior study. Heart is normal size. No hiatal hernia. Liver/biliary system: Normal size with no intrahepatic dilatation. Gallbladder: Contracted gallbladder. Pancreas: Atrophic pancreas. No duct dilatation. Spleen: Normal size spleen. No mass or infarct. Adrenal glands: Normal. Right kidney: Normal. Left kidney: Normal. Aorta: Mild atherosclerosis with no aneurysm. Mild ectasia. Lymphadenopathy: None. Free fluid: There is a small amount of fluid within the peritoneal cavity which is new since the prio r study. GI tract: There is severe colonic dilatation predominantly with air and a small amount of retained fe meena material. In the sigmoid region there is severe diffuse wall thickening with narrowing of the lum en. Small foci of air extending through the mucosa are highly suspicious for pneumatosis. Mucosal thi ckening and involvement of the distal sigmoid and rectum measures 9.4 cm. There is also marked dilata tion of the small bowel loops. Patient has a known RIGHT inguinal hernia containing small bowel. Ther e is air distention of the small bowel loops in the RIGHT inguinal hernia. Cannot exclude partial obs truction. No transition point. The extent of the hernia contained within the scrotum has decreased si nce the prior study. Abdominal wall: Unremarkable abdominal wall. No hernia. Pelvis: Markedly dilated loops of GI tract within the pelvis. Urinary bladder is only mildly distende d. There is a large RIGHT hydrocele. Osteopenia. Bones: Unremarkable. CT/CT abdomen pelvis w con* [id number] IMPRESSION: 1. Abnormal appearance of the distal sigmoid extending into the rectum over a length of 9.4 cm. There is diffuse wall thickening with narrowing of the lumen and findings suspicious for pneumatosis. Highly suspicious for ischemic disease . Underlying neoplasm not completely excluded. 2. Marked fluid and air distention of the small bowel. 3. Marked gaseous distention throughout the colon which has progressed. There is a change in caliber in the distal sigmoid in the area suspicious for ischemi a. 4. Patient has a known RIGHT inguinal hernia containing a small bowel loop. Th ere is mild fluid distention of this small bowel loop but no transition point. Less small bowel contained within the scrotum as compared to 09/03/2021. 5. Small LEFT pleural effusion and LEFT basilar atelectasis. 6. No definite free air identified. Notified Jordi Borges MD at 09/09/2021 9:24 AM.
[2021-09-09 08:35] LABS: Basophils # 0.1 10^3/uL (0.0-0.1); Basophils % 0.3 %; Hemoglobin 15.3 g/dL (11.7-16.6); Lymphocytes # 1.3 10^3/uL (0.8-4.8); Lymphocytes % 3.9 %; Mean Corpuscular HGB Conc 35.6 g/dL (30.0-36.0); Mean Corpuscular Hemoglobin 32.1 pg (28.0-34.0); Mean Corpuscular Volume 90.1 fl (80-94); Mean Platelet Volume 9.5 fL (7.4-10.4); Monocytes # 2.1 10^3/uL (0.2-0.9); Monocytes % 6.1 %; Neutrophils # 30.08 10^3/uL (1.8-7.7); Neutrophils % 88.4 %; Nucleated Red Blood Cells % 0 %; Platelet Count 565 10^3/cmm (130-400); Red Blood Count 4.77 10^6/uL (4.1-5.3); Red Cell Distribution Width 11.9 % (12.1-15.1)
[2021-09-09] MEDS: iohexol 300 mg/mL 100 mL Btl IV (08:46)
[2021-09-09 08:53] LABS: Lactate (Lactic Acid level) 1.5 mmol/L (0.5-2.2)
[2021-09-09 08:54] LABS: Alanine Aminotransferase 24 U/L (0-41); Albumin Level 3.4 g/dL (3.5-5.2); Alkaline Phosphatase 114 IU/L (40-130); Anion Gap 19.2 (5-19); Aspartate Amino Transferase 15 U/L (0-40); Blood Urea Nitrogen 12 mg/dL (8-23); Calcium 8.3 mg/dL (8.5-10.5); Carbon Dioxide 23 mmol/L (22-29); Chloride 89 mmol/L (98-107); Globulin 2.4 g/dL (1.3-4.6); Glomerular Filtration Rate 134.8 mL/min (90-130); Glucose 164 mg/dL (65-115); Lipase 24 U/L (13-60); Osmolality Calculated 269 mOsm/kg (285-295); Potassium 3.2 mmol/L (3.5-5.1); Sodium 128 mmol/L (136-145); Total Bilirubin 0.2 mg/dL (0.15-1.2); Total Protein 5.8 g/dL (6.6-8.7)
[2021-09-09] MEDS: ondansetron 2 mg/ML SDV 2 mL 4 MG IVP (08:57)
[2021-09-09] MEDS: sodium chloride 0.9% 500 ML 999 ML IV (08:57)
[2021-09-09] MEDS: morphine 4 mg/mL SDV 1 mL IVP (08:58)
[2021-09-09] MEDS: piperacillin-tazobactam 3.375 GM in sodium chloride 0.9% (plus) 50 ML IV ×2 (09:08→18:14)
[2021-09-09] MEDS: sodium chloride 0.9% 1,000 ML 999 ML IV (09:09)
[2021-09-09] MEDS: vancomycin 1,000 MG in sodium chloride 0.9% 250 ML 250 MG IV (09:35)
[2021-09-09 09:40] LABS: SARS Covid-2 Antigen Negative (Negative)
--- NOTE | 2021-09-09 10:12 | P.HP_ITS ---
Providers/Chief Complaint Admitting Physician: Ceasar Leung MD Chief Complaint: ABD PAIN History of Present Illness Chief Complaint: Tummy hurt History of present illness: Camron Pantoja is a 66 year old male with history of recurrent episodes of diverticulitis with recent hospitalization back in 09/03/2021 and patient was supposed to be getting an outside colonoscopy as he never had [address] Murillo but that did not take place. Patient at that time was treated conservatively and was discharged home and he presents today to the ER with worsening abdominal pain and was found to have alarming findingS on the CT scan; 1. Abnormal appearance of the distal sigmoid extending into the rectum over a length of 9.4 cm. There is diffuse wall thickening with narrowing of the lumen and findings suspicious for pneumatosis. Highly suspicious for ischemic disease. Underlying neoplasm not completely excluded. 2. Marked fluid and air distention of the small bowel. 3. Marked gaseous distention throughout the colon which has progressed. There is a change in caliber in the distal sigmoid in the area suspicious for isc hemia. 4. Patient has a known RIGHT inguinal hernia containing a small bowel loop. There is mild fluid distention of this small bowel loop but no transition point. Less small bowel contained within the scrotum as compared to 09/03/2021. 5. Small LEFT pleural effusion and LEFT basilar atelectasis. 6. No definite free air identified. General surgery was consulted. Patient was seen and evaluated in the emergency department for potential intervention. Review of Systems General: Reports: 10 or more systems reviewed and unremarkable except in HPI and below Medications/Allergies Home Medications Medication Instructions Recorded Confirmed Last Taken Type sildenafil 50 mg tablet 50 mg PO DAILY PRN #10 tab 12/16/20 09/09/21 Unknown Rx cyclobenzaprine 10 mg PO BEDTIME PRN 09/03/21 09/09/21 Unknown History ondansetron HCl 4 mg PO TID PRN 09/03/21 09/09/21 Unknown History acetaminophen [Tylenol Ex Str 1,000 mg PO QPM 09/09/21 09/09/21 09/08/21 14:00 History Rapid Release] ciprofloxacin HCl 500 mg PO Q12H 09/09/21 09/09/21 09/08/21 History ibuprofen 800 mg PO DAILY 09/09/21 09/09/21 09/07/21 History metronidazole [Flagyl] 500 mg PO Q8H 09/09/21 09/09/21 09/08/21 History nicotine 1 patch TRANSDERMAL DAILY 09/09/21 09/09/21 09/09/21 07:30 History tamsulosin 0.4 mg PO DAILY@12 09/09/21 09/09/21 09/08/21 12:00 History Allergies Allergy/AdvReac Type Severity Reaction Status Date / Time No Known Allergies Allergy Verified 09/09/21 10:48 PFSH Acute PFSH: Medical History Diverticulitis Erectile dysfunction Smoker Surgical History History of bladder surgery History of inguinal hernia repair Left Family History Father Smoker Denies family history of Diabetes Cancer Hypertension Social History Smoking and tobacco status: current every day smoker cigarettes Packs smoked per day: 1 Second hand smoke exposure: No Smoking risk assessment/counseling performed?: No Alcohol intake: never Desire information about alcohol rehabilitation?: No Counseling given: No Desire information about substance/drug rehabilitation?: No Counseling given: No Caregiver/support person: No Lives independently: Yes Household members: none Housing: House Marital status: Number of children: 3 service: No Current occupational status: employed History of recent travel: No Current gender identity: Male Vitals/I&O/Wt Last Vital Signs Temp 97.2 F L 09/09/21 08:14 Pulse 99 09/09/21 08:08 Resp 18 09/09/21 08:58 BP 158/92 09/09/21 08:08 Pulse Ox 93 09/09/21 08:58 Weight last 48 hrs Weight 143 lb Physical Exam Const: COMMON NORMALS: no acute distress and patient oriented x3 GENERAL APPEARANCE: cooperative ORIENTATION/CONSCIOUSNESS: Yes awake, Yes oriented to person, Yes oriented to place and Yes oriented to time HENMT: COMMON NORMALS: normocephalic HEAD & SCALP: normocephalic Eye: COMMON NORMALS: Equal, round and reactive pupils present and no scleral icterus PUPIL: Yes Equal, round and reactive pupils present Lymph: LYMPHATIC: no lymphadenopathy noted Chest: COMMONS NORMALS: normal inspection of the chest Resp: COMMON NORMALS: normal respiratory effort AUSCULTATION: not clear to auscultation bilaterally and wheezes expiratory wheezes Cardio: COMMON NORMALS: S1 normal heart sound present and S2 normal heart sound present; negative for No murmurs present (Cardio) HEART SOUNDS: S1 normal heart sound present and S2 normal heart sound present GI: COMMON NORMALS: Soft to palpation; negative for No hepatosplenomegaly present INSPECTION: Yes normal to inspection PALPATION: Yes Soft to palpation, No Firmness to palpation present (GI), No Tenderness to palpation present (GI), No Guarding due to palpation present (GI), No Rigid due to palpation, No No hepatosplenomegaly present and Yes Hernia present (Reducible right groin hernia) Neuro: COMMON NORMALS: patient oriented x3 SENSORIUM/ORIENTATION: Yes oriented to person, Yes oriented to place and Yes oriented to time Psych: COMMON NORMALS: mental status grossly normal Skin: COMMON NORMALS: no rashes or lesions noted GENERAL SKIN EXAM: no rashes or lesions noted Data : 09/09/21 08:19 09/09/21 08:19 A&P Assessment and plan (1) Pneumatosis intestinalis of large intestine: After thorough history physical examination and reviewing the chart and images with my personal interpretation of the CT scan of the abdomen and pelvis that shows pneumatosis intestinalis of the rectosigmoid area with ischemic changes. Also concerning for neoplasm of the rectosigmoid. The remarkable proximal colonic distention. And also discussing the imaging studies with Dr. Goldstein I did equal opportunity counselor the patient for exploratory laparotomy with possible colostomy and flex sigmoidoscopy Patient understands as well as his spouse and is interested to proceed accordingly Plan to send for serum CEA as well Status: Acute Attestations Medical Necessity Statement*: Inpatient admission passing 2 midnights Time Spent in Patient Care: 16 - 35 minutes (>than 50% of time spent in counselling and/or direct pt care on unit) . Coding Level of Care Code Acute Concert Pianist for Cherri Gasca Diagnoses Pneumatosis intestinalis of large intestine K63.89
--- NOTE | 2021-09-09 10:49 | ANES.PREANE2 ---
Pre-Anesthetic Assessment Pre-Anesthetic Assessment: Height/Weight: Height 1.83 m Weight 64.864 kg Temp Pulse Resp BP Pulse Ox 98.2 F 97 18 146/86 98 09/09/21 10:35 09/09/21 10:35 09/09/21 10:35 09/09/21 10:35 09/09/21 10:35 Preop Diagnosis: Pneumatosis of sigmoid colon Proposed Procedure: Operation Date: 09/09/21 11:30 Proposed Procedures p Exploratory Laparotomy(Not Applicable) - Ceasar Leung MD s Sigmoid Colectomy(Not Applicable) - Ceasar Leung MD Was Beta Gloria taken within 24 hours: N/A Was Clonidine taken within 24 hours: N/A Social: Social History: Tobacco Pack years: 50 Exam: Pre-Anes Outpt Exam: alert, oriented x 3, clear to auscultation bilaterally and regular rate & rhythm Airway: Submandibular: WNL Cervical ROM: WNL MP: 1 Dentition: Chipped and Other (Missing) History/ROS: No significant history except as noted Pulmonary: Pulmonary: None reported CV/HEM: CV/HEM: None reported Comments: METS > 4 : : None reported Hepatic: Hepatic: None reported GI: Comments: Ischemic bowel Hx of diverticulitis CT report IMPRESSION: 1. Abnormal appearance of the distal sigmoid extending into the rectum over a length of 9.4 cm. There is diffuse wall thickening with narrowing of the lumen and findings suspicious for pneumatosis. Highly suspicious for ischemic disease. Underlying neoplasm not completely excluded. 2. Marked fluid and air distention of the small bowel. 3. Marked gaseous distention throughout the colon which has progressed. There is a change in caliber in the distal sigmoid in the area suspicious for ischemia. 4. Patient has a known RIGHT inguinal hernia containing a small bowel loop. There is mild fluid distention of this small bowel loop but no transition point. Less small bowel contained within the scrotum as compared to 09/03/2021. 5. Small LEFT pleural effusion and LEFT basilar atelectasis. 6. No definite free air identified. Metabolic: Metabolic: None reported Musc/skel: Musc/skel: None reported Neuropsych: Neuropsych: None reported Anesthetic Plan: ASA status: 3E Anesthesia: General Risk of > 500 ml blood loss (7ml/kg in children): No Other Pertinent Information: Discussed with patient anesthetic plan and risks and benefits of plan including GETA, 2 IV, possible arterial line. PFSH Anesthesia PFSH: Medical History Diverticulitis Erectile dysfunction Smoker Surgical History History of bladder surgery History of inguinal hernia repair Left Family History Father Smoker Denies family history of Diabetes Cancer Hypertension Social History Smoking and tobacco status: current every day smoker cigarettes Packs smoked per day: 1 Second hand smoke exposure: No Smoking risk assessment/counseling performed?: No Alcohol intake: never Desire information about alcohol rehabilitation?: No Counseling given: No Desire information about substance/drug rehabilitation?: No Counseling given: No Caregiver/support person: No Lives independently: Yes Household members: none Housing: House Marital status: Number of children: 3 service: No Current occupational status: employed History of recent travel: No Current gender identity: Male Data Anesthesia CBC & Chem 7: 09/09/21 08:19 09/09/21 08:19 Other Labs: Laboratory Results - last 48 hr 09/09/21 09/09/21 09/09/21 08:19 08:19 08:19 WBC 34.0 H* RBC 4.77 Hgb 15.3 Hct 43.0 MCV 90.1 MCH 32.1 MCHC 35.6 RDW 11.9 L Plt Count 565 H MPV 9.5 Neut % (Auto) 88.4 Lymph % (Auto) 3.9 [place] % (Auto) 6.1 Eos % (Auto) 0.0 Baso % (Auto) 0.3 Neut # (Auto) 30.08 H Lymph # (Auto) 1.3 [place] # (Auto) 2.1 H Eos # (Auto) 0.0 Baso # (Auto) 0.1 Nucleated RBC % (auto) 0 Nucleated RBCs # 0.0 Sodium 128 L Potassium 3.2 L Chloride 89 L Carbon Dioxide 23 Anion Gap 19.2 H BUN 12 Creatinine 0.6 L GFR Calculation 134.8 H Glucose 164 H Calculated Osmolality 269 L Lactate 1.5 Calcium 8.3 L Total Bilirubin 0.2 AST 15 ALT 24 Alkaline Phosphatase 114 Total Protein 5.8 L Albumin 3.4 L Globulin 2.4 Lipase 24 SARS-CoV-2 Ag (Rapid) 09/09/21 09/09/21 09:11 09:20 WBC RBC Hgb Hct MCV MCH MCHC RDW Plt Count MPV Neut % (Auto) Lymph % (Auto) [place] % (Auto) Eos % (Auto) Baso % (Auto) Neut # (Auto) Lymph # (Auto) [place] # (Auto) Eos # (Auto) Baso # (Auto) Nucleated RBC % (auto) Nucleated RBCs # Sodium Potassium Chloride Carbon Dioxide Anion Gap BUN Creatinine GFR Calculation Glucose Calculated Osmolality Lactate 1.0 Calcium Total Bilirubin AST ALT Alkaline Phosphatase Total Protein Albumin Globulin Lipase SARS-CoV-2 Ag (Rapid) Negative Cardiac Studies: No Data to Display
[2021-09-09] MEDS: acetaminophen 1,000 MG/100 ML PIGGYBACK 400 MG IV (11:04)
[2021-09-09] MEDS: heparin 5,000 unit/mL INJ 1 mL 2000 UNIT SUBCUT (11:04)
--- NOTE | 2021-09-09 12:41 | SUR.OPER ---
Daughter notified of surgical start and progress
--- NOTE | 2021-09-09 14:09 | SUR.OPER ---
Called daughter and notified her of surgical progress
--- NOTE | 2021-09-09 16:05 | SUR.OPER ---
Family Notified Of Patient's Status Via Phone.
--- NOTE | 2021-09-09 16:11 | P.CONIM_ITS ---
Providers/Reason For Consult Consulting Physician/Specialty*: Wang/urology Reason for Consult*: Iatrogenic ureteral injury Attending Physician: Ceasar Leung MD History of Present Illness History of Present Illness Camron Pantoja is a 66 year old male who is undergoing exploratory laparotomy with partial colectomy and colostomy. It was discovered during the dissection of severe pelvic adhesions that the ureter had been involved in the segment removed. The ureter was easily identified and had been divided in the distal third. I was consulted for intraoperative evaluation and treatment Review of Systems General: Reports: ROS unobtainable due to medical condition Meds/Allergies Home Medications and Allergies Home Medications Medication Instructions Recorded Confirmed Last Taken Type sildenafil 50 mg tablet 50 mg PO DAILY PRN #10 tab 12/16/20 09/09/21 Unknown Rx cyclobenzaprine 10 mg PO BEDTIME PRN 09/03/21 09/09/21 Unknown History ondansetron HCl 4 mg PO TID PRN 09/03/21 09/09/21 Unknown History acetaminophen [Tylenol Ex Str 1,000 mg PO QPM 09/09/21 09/09/21 09/08/21 14:00 History Rapid Release] ciprofloxacin HCl 500 mg PO Q12H 09/09/21 09/09/21 09/08/21 History ibuprofen 800 mg PO DAILY 09/09/21 09/09/21 09/07/21 History metronidazole [Flagyl] 500 mg PO Q8H 09/09/21 09/09/21 09/08/21 History nicotine 1 patch TRANSDERMAL DAILY 09/09/21 09/09/21 09/09/21 07:30 History tamsulosin 0.4 mg PO DAILY@12 09/09/21 09/09/21 09/08/21 12:00 History Allergies Allergy/AdvReac Type Severity Reaction Status Date / Time No Known Allergies Allergy Verified 09/09/21 10:48 PFSH Acute PFSH: Medical History Diverticulitis Erectile dysfunction Smoker Surgical History History of bladder surgery History of inguinal hernia repair Left Family History Father Smoker Denies family history of Diabetes Cancer Hypertension Social History Smoking and tobacco status: current every day smoker cigarettes Packs smoked per day: 1 Second hand smoke exposure: No Smoking risk assessment/counseling performed?: No Alcohol intake: never Desire information about alcohol rehabilitation?: No Counseling given: No Desire information about substance/drug rehabilitation?: No Counseling given: No Caregiver/support person: No Lives independently: Yes Household members: none Housing: House Marital status: Number of children: 3 service: No Current occupational status: employed History of recent travel: No Current gender identity: Male Vitals/I&O/Wt Last Vital Signs Temp 98.2 F 09/09/21 10:35 Pulse 97 09/09/21 10:35 Resp 18 09/09/21 10:35 BP 146/86 09/09/21 10:35 Pulse Ox 98 09/09/21 10:35 09/09/21 09/09/21 09/09/21 06:59 14:59 22:59 Intake Total 350 / 350 Balance 350 / 350 Weight last 48 hrs Weight 143 lb Physical Exam Narrative: EXAM NARRATIVE: Patient asleep on the table with the abdomen exposed. 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
--- NOTE | 2021-09-09 16:24 | PM.OP ---
Operative Report Date of procedure: September 09, 2021 Pre-op Diagnosis: LEFT ureteral injury, intraoperative Post-op diagnosis: same Procedure Done: 1. LEFT ureteral reimplantation with psoas hitch 2. LEFT ureteral stent placement (6 [place] by 28 cm double-pigtail without string) Pathology: none sent Surgeon: Felipe Applications Processor: Xochitl Anesthesia: General Estimated blood loss: Minimal Urine output: Not measured Complications: None Findings: The distal LEFT ureter had been transected during the dissection of the severe pelvic scar tissue Condition: stable Disposition: PACU Brief History: Mr. Pantoja was undergoing an exploratory laparotomy with partial colectomy and colostomy for what appears to be severe inflammatory condition of his colon. He was found to have a severely inflamed adhered pelvis and during the dissection of the colon the left ureter which was involved in that inflammatory change was transected. It was identified very early after the operative field was cleared. I was consulted for intraoperative consult and repair. Procedure: The patient was opened and on the table at my entrance into the operating suite. After preoperative gowning etc. the wound was explored. The LEFT ureter was found to be divided distally several centimeters below the crossing of the pelvic vessels. The bladder was inflated with about 240 cc of sterile water. It appeared that there was going to be plenty of room to perform a psoas hitch but not enough room to reimplant the ureter easily onto the bladder wall without bladder reconstruction. The ureter was then freed up with blunt and sharp dissection with extension of the dissection to just below the left UPJ. This allowed a little bit more length of the ureter but it was still felt that the bladder would need to be hitched in order to allow the nontension anastomosis. The peritoneum and bladder were then opened in a horizontal incision across the dome. A psoas hitch was then performed with a finger placed in the dome of the bladder and stretching the bladder up into the psoas tendon where the bladder was tacked down with 2-0 Vicryl x2 into the fascia surrounding the psoas muscle in the tendon. The genitofemoral nerve was confirmed to be away from this area and not involved in the closure. A right angle was passed in through the bladder opening onto the lateral posterior aspect of the new bladder dome and the right angle was perforated through the bladder wall and the right angle was spread to increase opening size. A mucosal trough was then made posteriorly. A tag suture was placed in the distal ureteral stump secured with the right angle and pulled through into the bladder without tension. The ureter was then spatulated after dividing the distal closed-end. The spatulation extended about 1.5 cm. Utilizing 4-0 Vicryl the ureter was then secured in the trough utilizing no touch technique. Throughout the procedure the ureter was efflux and normally. Some indigo carmine had been given to help facilitate visualization of this and also to help facilitate confirmation of the stents position proximally when it was placed. Once the ureter had been tacked down adequately it was confirmed that the spatulated orifice was open and a flexible guidewire was advanced manually up the left ureter until attention was achieved and then the 6 [place] by 28 cm double-pigtail stent was advanced over the guidewire up the ureter into the area of the renal pelvis and the guidewire removed. The distal holes in the stent were confirmed to be effluxing indigo stained urine. With light traction on the stent it was clear that the curl was formed and the stent was secure. The distal aspect of the stent was then placed into the deeper portion of the bladder above the Castañeda catheter. At this point some of the adventitia around the ureter was utilized and secured with 4-0 Vicryl and tacked to the external bladder wall. The lack of tension on the repair was confirmed prior to this. The stent was palpable up the ureter with no palpable curl felt in the ureter itself with reassurance of its appropriate position. The bladder was then closed in 2 layers utilizing a mucosal muscularis closure with running 3-0 Vicryl followed by an imbricating muscularis adventitial layer with 2-0 Vicryl. The peritoneum was then closed in layers over the repair. Further recommendations to Dr. Leung were to place a drain to maintain for several days and to utilize some omentum to tack it down over the repaired area to from the bowel contents. The procedure went very well. Tension-free anastomosis was obtained and the ureter was healthy throughout with good efflux throughout the procedure. Stent was functioning well after positioning. Patient was then turned back over to Dr. Leung for completion of his procedure. PLANS: 1. Maintain Castañeda catheter for least 2 weeks. Cystogram to confirm no leak prior to catheter removal in my clinic. 2. Anticipate stent indwelling for close to 6 weeks. 3. We will follow with you. We will make arrangements for my office follow-up in roughly 2 weeks after discharge.
--- NOTE | 2021-09-09 17:15 | P.OP_ITS ---
Operative Report Date of procedure: September 09, 2021 Pre-op Diagnosis: Sigmoid colon diverticulitis with pneumatosis and complete obstruction Post-op diagnosis: same Post-op Findings: Extensively scarred down rectosigmoid colon Markedly dilated entire colon with intact ileocecal valve Inadvertent left ureteric injury Procedure Done: 1-Exploratory laparotomy 2-Colotomy for decompression of the colon with pursestring suture and omental patch 3-Extensive adhesiolysis exceeded 1 hour of the operative time the pelvic area 4-Sigmoid colon resection with Mccloud's procedure and colostomy formation Psoas hitch and implantation of the left ureter to the bladder(see separate dictation for urology service) 5-Incidental appendectomy Implants: Piece of Surgicel in the upper abdomen Right sided 19 [place] round drain towards the pelvis Left ureteric stent Castañeda catheter Specimens removed/disposition: Sigmoid colon resection with sutures marked proximal Staple line Incidental appendectomy Surgeon: Ceasar Leung Surgeon: Marketing Instructor surgeon Dr. Wang Marketing Instructor: real estate administrative assistant [facility] Kelsie Circulating nurses Yessica and Peggy Anesthesia: General (GETA Dr. Mane/JULIANA Lala/and Dr. Sam) Estimated blood loss (mL): 150 IV fluids (mL): 3,000 IV fluids: 250 mL 5% albumin Patient required pressors intraoperatively please see anesthesia report Urine output (mL): 400 Complications: Inadvertent left ureteric injury Condition: stable Disposition: ICU Procedure: The patient was brought to the operating room and was placed in a supine position on the operating room table. General endotracheal anesthesia was induced. Timeout was done verifying the patient's name/date of /planned procedure and destination after the procedure, all were in agreement.SCDs confirmed to be functioning, preoperative antibiotics administered per protocol, and beta ronan protocol was confirmed and Heparin SC. The patient was then moved to a modified lithotomy position. A Castañeda catheter was inserted revealing very dark and concentrated urine. The abdomen was prepped and draped in a sterile fashion. A midline incision was carried out from just above the umbilicus to the pubis.Cautery was used to divide the subcutaneous tissue and the midline fascia and the peritoneal cavity was entered. Noticed to have remarkable distention of the entire colon all the way to the distal rectosigmoid area, mild ascitic fluid was appreciated. Muse self-retaining retractor was used for exposure. Palpation revealed a mass in the distal sigmoid colon and this was adherent to at least the peritoneum overlying the dome of the bladder with extensive scarring encroaching on the left lateral pelvic wall. No liver masses were palpated. No other obvious abnormalities were seen or palpated. I decided to perform a small colotomy after application of pursestring suture towards the mid ascending colon close the tenia coli to decompress the remarkably distended colon to help with exposure following that the pursestring suture was tied down and the omental flap was placed later during the course of the procedure. An attempt was then made to separate the sigmoid from the bladder. A rim of peritoneum was actually excised over the top of the bladder where it appeared a severe desmoplastic reaction was taking place. Using a 15 blade knife for sharp dissection,aninadvertent colotomy/Rectostomy was appreciated at the rectosigmoid area and extensive dissection and adhesiolysis took more than 1 hour of the operative time. Finally I was able to free the distal rectum and appreciated healthier segment. At that point I did scrub out and flex sigmoidoscopy was done and the mucosa of the rectum looked to be pink and healthy and there were no tumors in the distal part. The flex sig was removed after decompression and I scrubbed back in. The distal colon was divided using a [place] 60 stapler green load x2 distal to the diseased segment.Voyant energey device was used to divide some of the mesentery so that the proximal end of the sigmoid could be tucked up underneath a retractor. Dissection was then carried out further into the pelvis, with the Voy[place] further dividing the mesentery. Initially the left ureter was identified distally yet later on with the dissection of the mesentery appears there was a structure simulating the ureter that was scarred down to the mesentery of the sigmoid colon and inadvertently that was divided using the energy device. At that point immediate attention was recognized to the injury and intraoperative urology consultation was initiated. Please see separate dictation for Dr. Wang where he was able to free the left ureter and reimplanted using psoas hitch technique(I was present during the psoas hitch assisting Dr. Wang). Prior to that I was able to divide the proximal healthy colon and the sigmoid colon was sent for pathology with sutures marked proximal. And a [id number] Prolene suture was placed into the rectal stump for future identification. Extensive and thorough irrigation was done and a 19 [place]ij[place] round Sadiq drain was placed in the pelvis and secured to the skin using 2-0 nylon in a portion of the omentum was brought about at the site of the implantation of the left ureter. The bowel were ran and there were no injuries, I decided to perform incidental appendectomy using a blue load followed by invagination of the staple line using 2-0 silk sutures. After appropriate immobilization of the sigmoid colon.Final survey was done, more irrigation was achieved, I decided at this point on the location of the future colostomy, at the junction between the lateral one third and medial two thirds, from the left anterior superior iliac spine and the umbilicus, incision was created under direct visualization to accommodate the colostomy, dissection was carried all the way subcutaneous tissues and muscle layer, the site was wide enough to accommodate my 2 examining fingers, at that point the distal part of the descending colon was retrieved without tension via that site. I decided to apply 2-0 silk sutures to stabilize the colostomy at the exit site towards the underlying fascia. This is of Surgicel were placed at the dissection of the left ureter for mild oozing After full count was complete of instruments, sponges and needle The midline fascia was closed using a looped #1 PDS. Some internal retention sutures of #1 Vicryl were also used. The subcutaneous tissue was extensively irrigated and the skin was then approximated using skin [place]. Packing using 2 inch Nu Gauze A sterile dressing was placed over the wound. A curved Nicholas was used to take the staple line off the colostomy passed to the circulating nurse for permanent pathology .At this 0.3 0 Vicryl was used circumferentially to maintain the colostomy in good position, I used 3-0 Vicryl at the 4 poles of the colostomy ,stitch was placed in the mucosa then seromuscular and then subdermal layer at the 4 poles,followed by interrupted sutures between the mucosa and the subdermal layer. An ostomy appliance was applied now. Bilateral TAP (transversus abdominous plain peripheral nerve block) block using Exparel 20 mL Exparel,40 ml Normal saline,20 ml bupivacaine 0.25% 30 mL on each side injected, 20 mL injected the port sites. I was present for the whole entire procedure The patient maintained to be intubated and was taken directly to the ICU in stable condition postoperatively. To continue resuscitation
[2021-09-09 17:21] LABS: Anion Gap 10.2 (5-19); Blood Urea Nitrogen 10 mg/dL (8-23); Calcium 6.8 mg/dL (8.5-10.5); Carbon Dioxide 23 mmol/L (22-29); Chloride 101 mmol/L (98-107); Glomerular Filtration Rate 215.2 mL/min (90-130); Glucose 172 mg/dL (65-115); Osmolality Calculated 275 mOsm/kg (285-295); Potassium 3.2 mmol/L (3.5-5.1); Sodium 131 mmol/L (136-145)
[2021-09-09 17:37] LABS: Hematocrit 37.7 % (42.0-52.0); Hemoglobin 12.5 g/dL (11.7-16.6); Mean Corpuscular HGB Conc 33.2 g/dL (30.0-36.0); Mean Corpuscular Hemoglobin 31.4 pg (28.0-34.0); Mean Corpuscular Volume 94.7 fl (80-94); Mean Platelet Volume 9.5 fL (7.4-10.4); Platelet Count 470 10^3/cmm (130-400); Red Blood Count 3.98 10^6/uL (4.1-5.3); Red Cell Distribution Width 12.1 % (12.1-15.1)
[2021-09-09 17:40] LABS: Total Cells Counted 100 (0-100); White Blood Count 46.6 10^3/uL (4.0-10.0)
[2021-09-09 17:41] LABS: Absolute Neutrophil 41.9 10^3/cmm (1.4-6.5); Absolute Segmented Neutrophil 40.5 10/cmm (1.6-7.1); Band Neutrophils Absolute 1.4 10^3/cmm (0.0-1.2); Eosinophils 0 %; Lymphocytes 3 %; Lymphocytes Absolute 1.9 10^3/cmm (1.2-3.4); Monocytes Absolute 2.8 10^3/cmm (0.1-0.6); Platelet Estimate Increased (Normal); Segmented Neutrophils 87 %
--- NOTE | 2021-09-09 17:41 | P.CONIM_ITS ---
Providers/Reason For Consult Consulting Physician/Specialty*: Dr. Miramontes (Data Quality Consultant) Reason for Consult*: Medical management sepsis, COPD. Attending Physician: Ceasar Leung MD History of Present Illness History of Present Illness Camron Pantoja is a 66 year old male with past medical history of smoking, diverticulitis, erectile dysfunction, COPD, presented to the hospital today for complaint of worsening abdominal pain. Of note patient was recently admitted on 09/03 and was supposed to get an outside colonoscopy in a few days by Dr. Murillo. He was treated conservatively during hospital admission and was discharged home. Patient was tolerating diet and did not experience any nausea vomiting abdominal pain. He was discharged home on ciprofloxacin, Flagyl, tamsulosin. He does have a history of chronic right inguinal hernia but did not show any signs of strangulation or obstruction. CT scan at that admission did show a sma ll bowel contained within nonobstructive right inguinal hernia and distended colon with small diverticuli. Patient did go see Dr. Murillo in his office on Monday. Due to suspicion of ongoing infection and risk of perforation colonoscopy was deferred at this time as per the daughter. Patient was advised to complete antibiotics and in 2 weeks he had a follow-up appointment with Dr. Murillo to decide further management and potential surgery to repair the hernia. Daughter states that patient was hesitant to come to the ER today as well but was convinced by her and therefore patient was brought to the ER. Patient is not very compliant with his medications at home. She also states that he has COPD and is supposed to be on inhalers but he does not take them. She denies a history of hypertension. She states he is also avoided steroids in the past for his COPD because he believes it will cause immune suppression. She says that after he went home from the hospital he had some abdominal pain but generally was okay and did end up going and seeing Dr. Murillo in his office. Patient did tell the ER that his abdominal pain and distention has been worsening for the past 2 weeks but he denies any nausea vomiting diarrhea or constipation. Last bowel movement was this morning. Denies any chest pain or shortness of breath. Denied fevers or chills. Today when he presented to the ER a CT scan of the abdomen was done which showed abnormal appearance of distal sigmoid extending into rectum over a length of 9.4 cm. Diffuse wall thickening with narrowing of the lumen and finding suspicion for pneumatosis. Highly suspicious for ischemic disease. Marked fluid and air distention of the small bowel, marked gaseous distention throughout the colon which has progressed. Change in caliber in distal sigmoid and the area suspicious for ischemia. He has a known right inguinal hernia containing small bowel loop. There is mild fluid distention of the small bowel loop but no transition point. Small left pleural effusion and left basilar atelectasis. ED course: On arrival to hospital blood pressure 158/92, respirate 18, pulse rate 99, temperature 97.2, pulse ox 93%. Case was discussed with surgery and patient was taken to the OR. WBC count 46.6, hemoglobin 12.5, platelet count 470, neutrophil 30.08. Bandemia present, sodium 131, potassium 3.2 lipase 24. Rapid Covid negative. Patient was taken to surgery had exploratory laparotomy was done. Colostomy for decompression of colon with pursestring suture and omental patch, sigmoid colon resection with Roberts's procedure and colostomy formation. Facilitation implantation of left ureter to the bladder. Incidental appendectomy. There was a left ureter injury and Dr. Wang assisted with the procedure. Left ureter was reimplanted into the bladder. Recommendation has been made to maintain Castañeda catheter for at least 2 weeks. Patient has a right-sided 19 Faroese round drain towards the pelvis. Patient has been given vancomycin, and zosyn. Estimated blood loss during procedure 150 cc. Heparin subcu 2000 units given prior. Hospitalist team has been asked to assist with medical management of COPD. Above history was obtained by daughter Shelby who was present at bedside today in ICU status post surgery and Dr. Lenug who met the patient prior to surgery. Review of Systems General: Reports: ROS unobtainable due to endotracheal tube Meds/Allergies Home Medications and Allergies Home Medications Medication Instructions Recorded Confirmed Last Taken Type sildenafil 50 mg tablet 50 mg PO DAILY PRN #10 tab 12/16/20 09/09/21 Unknown Rx cyclobenzaprine 10 mg PO BEDTIME PRN 09/03/21 09/09/21 Unknown History ondansetron HCl 4 mg PO TID PRN 09/03/21 09/09/21 Unknown History acetaminophen [Tylenol Ex Str 1,000 mg PO QPM 09/09/21 09/09/21 09/08/21 14:00 History Rapid Release] ciprofloxacin HCl 500 mg PO Q12H 09/09/21 09/09/21 09/08/21 History ibuprofen 800 mg PO DAILY 09/09/21 09/09/21 09/07/21 History metronidazole [Flagyl] 500 mg PO Q8H 09/09/21 09/09/21 09/08/21 History nicotine 1 patch TRANSDERMAL DAILY 09/09/21 09/09/21 09/09/21 07:30 History tamsulosin 0.4 mg PO DAILY@12 09/09/21 09/09/21 09/08/21 12:00 History Allergies Allergy/AdvReac Type Severity Reaction Status Date / Time No Known Allergies Allergy Verified 09/09/21 10:48 PFSH Acute PFSH: Medical History Diverticulitis Erectile dysfunction Smoker Surgical History History of bladder surgery History of inguinal hernia repair Left Family History Father Smoker Denies family history of Diabetes Cancer Hypertension Social History Smoking and tobacco status: current every day smoker cigarettes Packs smoked per day: 1 Second hand smoke exposure: No Smoking risk assessment/counseling performed?: No Alcohol intake: never Desire information about alcohol rehabilitation?: No Counseling given: No Desire information about substance/drug rehabilitation?: No Counseling given: No Caregiver/support person: No Lives independently: Yes Household members: none Housing: House Marital status: Number of children: 3 service: No Current occupational status: employed History of recent travel: No Current gender identity: Male Vitals/I&O/Wt Last Vital Signs Temp 98.2 F 09/09/21 10:35 Pulse 97 09/09/21 10:35 Resp 18 09/09/21 10:35 BP 146/86 09/09/21 10:35 Pulse Ox 98 09/09/21 10:35 09/09/21 09/09/21 09/09/21 06:59 14:59 22:59 Intake Total 350 / 350 Output Total 400 / 400 Balance 350 / 350 -400 / -50 Weight last 48 hrs Weight 64.864 kg Physical Exam Narrative: EXAM NARRATIVE: General: Intubated, but awake alert and following commands. Able to swallow and cough for me. On minimal vent settings right now FiO2 40%, PEEP 8, 400 tidal volume. He is also seen rolling his eyes and making facial expressions while I am speaking to daughter in the room. He denies being in pain right now. HEENT: Normocephalic, atraumatic Cardio: Regular rate rhythm, normal S1-S2, no murmurs Respiratory: Good bilateral air entry, no wheezes no rhonchi appreciated, anterior lung ramos auscultated. Posterior lung ramos unable to be auscultated at this time. GI: Abdomen rigid, tender to palpation throughout all quadrants, distended, colostomy present, stoma edematous and beefy red appearing, bowel sounds absent, midline incision present covered with Band-Aid, right pelvic drain present draining serosanguineous fluid about 50 cc in bulb seen, Extremities: Pulses 2+, no edema, no cyanosis Neurological: No focal neurological deficits able to follow commands able to move his extremities but has restraints on at this time. Urinary Catheter Management^: Castañeda: Cath Placed During This Visit: yes Urinary Catheter Date of Insertion: 09/09/21 Urinary Catheter Time of Insertion: 12:41 A&P Assessment and plan (1) Intraoperative ureteral injury: Status: Acute (2) Pneumatosis intestinalis of large intestine: Status: Resolved (3) Diverticulitis: Status: Acute (4) Smoker: Status: Chronic (5) Status post exploratory laparotomy: Status: Acute (6) Colostomy in place: Status: Acute (7) Status post Jorge procedure: Status: Acute (8) Sepsis: Status: Acute (9) Ischemic bowel syndrome: Status: Acute (10) HTN (hypertension): Status: Acute (11) COPD (chronic obstructive pulmonary disease): Status: Acute Additional A&P Information #Sepsis secondary to ischemic bowel, divirticulitis #S/p exploratory laparatomy #S/p left ureteral intraoperative injury s/p repair #S/p colostomy roberts procedure - WBC 24439, will order peripheral smear to rule out leukemia although i suspect that his count is related to sepsis - Patients vitals are stable and is not requiring pressors. - Will continue vanc, zosyn and flagyl - Will order peripheral smear as well - Check lactic acid - Check blood gas - Check blood cultures - Check urinalysis and urine culture - Keep NPO - Will check AM labs - Plan to extubate patient tonight. - Further management as per surgery #COPD #Smoker - Dr. Lentz stated that patient had ronchi prior to surgery today. - Duoneb Q4 hours QID Full Code DVT PPX: Start heparin in AM. Today patient received heparin 2000 unit subcu. Consult Attestations Medical Necessity Statement: Defer to primary team. Coding Level of Care Code Acute 3D Technologist for [facility] Fwd Diagnoses Intraoperative ureteral injury N99.81 Pneumatosis intestinalis of large intestine K63.89 Diverticulitis K57.92 Smoker F17.200 Status post exploratory laparotomy Z98.[address] Z93.3 Status post Jorge procedure Z93.3 Sepsis A41.9 Ischemic bowel syndrome K55.9 HTN (hypertension) I10 COPD (chronic obstructive pulmonary disease) J44.9
[2021-09-09] MEDS: famotidine 20 mg/2 mL INJ IVP (18:15)
[2021-09-09] MEDS: sodium chloride 0.9% 1,000 ML 100 ML IV (18:16)
[2021-09-09] MEDS: metroNIDAZOLE IV 500 MG/100 ML PREMIX 100 MG IV (18:45)
[2021-09-09 19:15] LABS: Blood Urine 3+ (Negative); Glucose Urine UA Norm (Normal); Ketones Urine Negative (Negative); Nitrate Urine Negative (Negative); Protein Urine 1+ (Negative); Urine Appearance Cloudy (CLEAR); Urine Color Yellow (Yellow); pH Urine 6.5 (5-7)
[2021-09-09 19:16] LABS: Bilirubin Urine 1+ (Negative); Leukocyte Esterase Urine 1+ (Negative); Urobilinogen Urine 1 mg/dL (Negative)
[2021-09-09 19:17] LABS: Bacteria Urine 1+ /hpf
--- NOTE | 2021-09-09 19:17 | PC.NURSE ---
Extubated per RT, placed on 3L NC, tolerated well.
[2021-09-09 19:18] LABS: Oval Fat Bodies Urine 1+ /hpf
[2021-09-09 19:19] LABS: RBC Urine >100 /hpf (0-2)
--- NOTE | 2021-09-09 19:19 | PC.RESP ---
pt extubabted to 3lm nc
[2021-09-09 19:21] LABS: Add Urine Culture? No
[2021-09-09 19:51] LABS: Lactate (Lactic Acid level) 0.8 mmol/L (0.5-2.2)
[2021-09-09] MEDS: ipratropium-albuterol 3 mL Neb INHALATION (19:53)
[2021-09-09 20:00] LABS: LAB Peripheral Smear Sent for Review
[2021-09-10] VITALS (32 sets, daily range): BP systolic 101–151; BP diastolic 58–82; PULSE 89–109; RESP 10–26; TEMP 36.7–37.1; O2SAT 90–100
[2021-09-10] MEDS: piperacillin-tazobactam 3.375 GM in sodium chloride 0.9% (plus) 50 ML IV ×2 (02:12→11:16)
[2021-09-10] MEDS: metroNIDAZOLE IV 500 MG/100 ML PREMIX 100 MG IV ×3 (02:13→18:55)
[2021-09-10] MEDS: sodium chloride 0.9% 1,000 ML 100 ML IV ×2 (03:58→14:45)
--- NOTE | 2021-09-10 04:53 | PC.NURSE ---
Unable to draw from A-line and not waveform very dampened. Unable to get L radial A-line to function properly. Removed Left radial A-line, pressure applied, coban applied.
[2021-09-10] MEDS: HYDROmorphone 1 mg/mL INJ 1 mL 0.5 MG IVP ×5 (04:59→21:04)
[2021-09-10] MEDS: famotidine 20 mg/2 mL INJ IVP ×2 (05:05→17:36)
[2021-09-10 05:21] LABS: Basophils # 0.1 10^3/uL (0.0-0.1); Basophils % 0.3 %; Hematocrit 37.4 % (42.0-52.0); Hemoglobin 12.7 g/dL (11.7-16.6); Lymphocytes # 1.3 10^3/uL (0.8-4.8); Lymphocytes % 3.3 %; Mean Corpuscular Hemoglobin 32.1 pg (28.0-34.0); Mean Corpuscular Volume 94.4 fl (80-94); Mean Platelet Volume 9.1 fL (7.4-10.4); Monocytes # 1.8 10^3/uL (0.2-0.9); Monocytes % 4.5 %; Neutrophils # 36.32 10^3/uL (1.8-7.7); Neutrophils % 90.1 %; Nucleated Red Blood Cells % 0 %; Platelet Count 464 10^3/cmm (130-400); Red Blood Count 3.96 10^6/uL (4.1-5.3); Red Cell Distribution Width 12.4 % (12.1-15.1)
--- NOTE | 2021-09-10 05:42 | PM.PN ---
Subjective Subjective: Interval history: Patient overall feels better and started passing gas and having bowel movement per stoma, marginal urine output. Denies any nausea or vomiting. Serosanguineous output per drain and darker urine and no evidence of left flank pain or hematuria. Vitals/I&O/Wt Last Vital Signs Temp 98.2 F 09/10/21 04:00 Pulse 93 09/10/21 04:00 Resp 16 09/10/21 04:59 BP 101/58 09/10/21 04:00 Pulse Ox 96 09/10/21 04:00 09/09/21 09/09/21 09/10/21 14:59 22:59 06:59 Intake Total 350 / 350 150 / 500 1070 / 1570 Output Total 890 / 890 480 / 1370 Balance 350 / 350 -740 / -390 590 / 200 Weight last 48 hrs Weight 155 lb 6.4 oz Weight 143 lb Physical Exam Narrative: EXAM NARRATIVE: Patient is conscious alert oriented X3 BMI 21.1 Head and neck examination PERRLA no masses no cervical lymphadenopathy no jaundice Cardiac examination audible S1-S2 no murmurs no gallops no arrhythmias Chest is clear bilateral,abscence of Rhonchi or wheezes,no surgical emphysema Abdomen nontender set at the midline incision mildly distended soft no organomegaly guarding or rigidity/no signs of peritonitis, packing in place. Right lower quadrant drain in place with serosanguineous output Castañeda catheter in place Extremities no cyanosis no clubbing no edema Urinary Catheter Management^: Castañeda: Cath Placed During This Visit: yes Urinary Catheter Date of Insertion: 09/09/21 Urinary Catheter Time of Insertion: 12:41 Data : 09/10/21 04:53 09/10/21 04:53 Micro: Microbiology 09/09/21 19:03 Blood Culture - Preliminary Blood SPECIMEN COLLECTED 09/09/21 19:03 Blood Culture - Preliminary Blood SPECIMEN COLLECTED A&P Assessment and plan (1) Status post Jorge procedure: Assessment 66 years old gentleman status post exploratory laparotomy, Mccloud's procedure(sigmoid colon resection) with reimplantation of the left ureter status post inadvertent injury during the resection. 09/09/2021 Plan From surgical standpoint of view we will start the patient slowly on ice chips and popsicle Encourage ambulation Incentive spirometer every hour Nicotine patch 14 mg application Wound care in the form of daily packing of the wound using wet-to-dry 2 inches Nu Gauze followed by ABDs Ostomy care and teaching Castañeda catheter care and teaching From surgical standpoint of view patient can go to the floor we will coordinate care with Dr. Miramontes Assurance and education All questions have been answered and all concerns have been addressed to patient's satisfaction. Status: Acute Attestations Medical Necessity Statement*: Patient requiring hospitalization for perioperative care and pain control and continuation of antimicrobial therapy Time Spent in Patient Care: (>than 50% of time spent in counselling and/or direct pt care on unit). Coding Level of Care Code Acute Financial Institution Vice President for [facility] Fwd Diagnoses Status post Jorge procedure Z93.3
[2021-09-10 05:46] LABS: Magnesium 1.5 mg/dL (1.7-2.3)
[2021-09-10 05:54] LABS: Anion Gap 11.7 (5-19); Blood Urea Nitrogen 8 mg/dL (8-23); Calcium 6.6 mg/dL (8.5-10.5); Carbon Dioxide 23 mmol/L (22-29); Chloride 102 mmol/L (98-107); Glomerular Filtration Rate 166.4 mL/min (90-130); Glucose 98 mg/dL (65-115); Osmolality Calculated 274 mOsm/kg (285-295); Potassium 3.7 mmol/L (3.5-5.1); Sodium 133 mmol/L (136-145)
[2021-09-10 06:16] LABS: White Blood Count 40.3 10^3/uL (4.0-10.0)
[2021-09-10] MEDS: heparin 5,000 unit/mL INJ 1 mL 5000 UNIT SUBCUT ×2 (06:29→17:36)
[2021-09-10] MEDS: nicotine 14 mg Patch 1 PATCH TRANSDERMA (08:08)
[2021-09-10] MEDS: ipratropium-albuterol 3 mL Neb INHALATION ×4 (08:08→20:49)
--- NOTE | 2021-09-10 09:14 | PM.PN ---
Subjective Subjective: Interval history: Seen this morning. Patient was extubated last night around 7:15 PM and was on 3 L nasal cannula. Now he is down to 1.5 L nasal cannula. He is doing well and is in good spirits. He does complain of a little bit of pain in his abdominal area but otherwise doing okay. Daughter is present at bedside. He has been started on ice chips today by general surgery. He also has some output in his colostomy bag. He is also passing gas. Denies any shortness of breath chest pain. Vitals/I&O/Wt Last Vital Signs Temp 98.4 F 09/10/21 15:00 Pulse 105 H 09/10/21 18:00 Resp 16 09/10/21 18:00 BP 150/78 09/10/21 18:00 Pulse Ox 90 09/10/21 18:00 09/10/21 09/10/21 09/10/21 06:59 14:59 22:59 Intake Total 1120 / 1620 1300 / 1300 450 / 1750 Output Total 480 / 1370 440 / 440 660 / 1100 Balance 640 / 250 860 / 860 -210 / 650 Weight last 48 hrs Weight 70.488 kg Weight 64.864 kg Physical Exam Narrative: EXAM NARRATIVE: General: Alert oriented x3. Taking ice chips. HEENT: Normocephalic, atraumatic, EOMI Cardio: Regular rate rhythm, normal S1-S2, no murmurs Respiratory: Good bilateral air entry, no wheezes no rhonchi appreciated, lungs clear to auscultation GI: Abdomen soft compared to yesterday, mildly tender to palpation throughout all quadrants, distended, colostomy present, stoma edematous and beefy red appearing, bowel sounds present but hypoactive, midline incision with dayton appears clean and no sign of erythema around. Right pelvic drain present draining serosanguineous fluid about 40 cc in bulb seen, also output of brownish fecal matter seen and colostomy bag. Extremities: Pulses 2+, no edema, no cyanosis Neurological: No focal neurological deficits. Able to move all 4 extremities. Urinary Catheter Management^: Castañeda: Cath Placed During This Visit: yes Urinary Catheter Date of Insertion: 09/09/21 Urinary Catheter Time of Insertion: 12:41 Data : 09/10/21 04:53 09/10/21 04:53 Micro: Microbiology 09/09/21 19:03 Blood Culture - Preliminary Blood SPECIMEN COLLECTED 09/09/21 19:03 Blood Culture - Preliminary Blood SPECIMEN COLLECTED A&P Assessment and plan (1) Intraoperative ureteral injury: Status: Acute (2) Pneumatosis intestinalis of large intestine: Status: Resolved (3) Diverticulitis: Status: Acute (4) Smoker: Status: Chronic (5) Status post exploratory laparotomy: Status: Acute (6) Colostomy in place: Status: Acute (7) Status post Jorge procedure: Status: Acute (8) Sepsis: Status: Acute (9) Ischemic bowel syndrome: Status: Acute (10) HTN (hypertension): Status: Acute (11) COPD (chronic obstructive pulmonary disease): Status: Acute Additional A&P Information #Sepsis secondary to ischemic bowel, divirticulitis #S/p exploratory laparatomy #S/p left ureteral intraoperative injury s/p repair #S/p colostomy roberts procedure - WBC 29216 09/09. White count down to 40,000. Peripheral smear consistent with sepsis. Flow cytometry has been ordered just to be on the shorter side. - Patients vitals are stable and is not requiring pressors. -We will escalate patient's antibiotic to Vanco imipenem and Flagyl. -Lactic acid normal, blood culture negative to date, urinalysis urine culture pending. Continue ice chips for now. ?Diet recommendations as per general surgery. -Can transfer from ICU to the floor. General surgery agrees. ?Continue pain management #COPD #Smoker - Dr. Lentz stated that patient had ronchi prior to surgery today. - Duoneb Q4 hours QID Full Code DVT PPX: Heparin 5000 subcu twice daily. Attestations Medical Necessity Statement*: Defer to primary team. Coding Level of Care Code Acute Category Manager for [facility] Fwd Diagnoses Intraoperative ureteral injury N99.81 Pneumatosis intestinalis of large intestine K63.89 Diverticulitis K57.92 Smoker F17.200 Status post exploratory laparotomy Z98.[address] Z93.3 Status post Jorge procedure Z93.3 Sepsis A41.9 Ischemic bowel syndrome K55.9 HTN (hypertension) I10 COPD (chronic obstructive pulmonary disease) J44.9
[2021-09-10] MEDS: magnesium sulfate premix 4 GM/100 ML PREMIX IV (10:06)
[2021-09-10] MEDS: tamsulosin 0.4 mg Capsule PO (12:12)
[2021-09-10] MEDS: morphine 4 mg/mL SDV 1 mL 2 MG IVP (16:07)
[2021-09-10] MEDS: vancomycin 1,000 MG in sodium chloride 0.9% 250 ML 250 MG IV (17:31)
--- NOTE | 2021-09-10 18:12 | PC.NURSE ---
0945 Reported patient c/o of muscle spasms to Dr. Miramontes. No new orders. 1415 Spoke to infection control nurse who reported that patient was exposed to an employee who later tested positive for COVID. This was reported to Dr. Miramontes who stated she would inform the patient and discuss his treatment plan, including need for antibody infusion.
[2021-09-11] VITALS (15 sets, daily range): BP systolic 139–166; BP diastolic 71–85; PULSE 99–114; RESP 16–20; TEMP 36.9–37.3; O2SAT 81–94
[2021-09-11] MEDS: vancomycin 1,000 MG in sodium chloride 0.9% 250 ML 250 MG IV ×3 (00:14→18:21)
[2021-09-11] MEDS: HYDROmorphone 1 mg/mL INJ 1 mL 0.5 MG IVP (02:35)
[2021-09-11] MEDS: metroNIDAZOLE IV 500 MG/100 ML PREMIX 100 MG IV ×3 (02:35→19:42)
[2021-09-11] MEDS: sodium chloride 0.9% 1,000 ML 100 ML IV (04:41)
[2021-09-11] MEDS: heparin 5,000 unit/mL INJ 1 mL 5000 UNIT SUBCUT ×2 (05:28→18:21)
[2021-09-11] MEDS: famotidine 20 mg/2 mL INJ IVP ×2 (05:28→18:21)
[2021-09-11 05:55] LABS: Basophils # 0.1 10^3/uL (0.0-0.1); Basophils % 0.2 %; Hematocrit 37.8 % (42.0-52.0); Hemoglobin 13.1 g/dL (11.7-16.6); Lymphocytes # 1.1 10^3/uL (0.8-4.8); Lymphocytes % 3.1 %; Mean Corpuscular HGB Conc 34.7 g/dL (30.0-36.0); Mean Corpuscular Hemoglobin 32.4 pg (28.0-34.0); Mean Corpuscular Volume 93.6 fl (80-94); Mean Platelet Volume 9.3 fL (7.4-10.4); Monocytes # 1.9 10^3/uL (0.2-0.9); Monocytes % 5.7 %; Neutrophils # 30.27 10^3/uL (1.8-7.7); Neutrophils % 89.5 %; Nucleated Red Blood Cells % 0 %; Platelet Count 503 10^3/cmm (130-400); Red Blood Count 4.04 10^6/uL (4.1-5.3); Red Cell Distribution Width 12.5 % (12.1-15.1)
[2021-09-11 06:13] LABS: Anion Gap 15.1 (5-19); Blood Urea Nitrogen 6 mg/dL (8-23); Carbon Dioxide 22 mmol/L (22-29); Chloride 98 mmol/L (98-107); Glomerular Filtration Rate 215.2 mL/min (90-130); Glucose 88 mg/dL (65-115); Osmolality Calculated 271 mOsm/kg (285-295); Potassium 3.1 mmol/L (3.5-5.1); Sodium 132 mmol/L (136-145)
[2021-09-11 06:22] LABS: White Blood Count 33.8 10^3/uL (4.0-10.0)
--- NOTE | 2021-09-11 08:41 | PM.PN ---
Subjective Subjective: Interval history: Patient overall feels well he seems to be little bit confused with the drains and colostomy appliance and a Castañeda catheter. Met the appropriate criteria for transfer to the floor yesterday. Trending down leukocytosis. Medications: Reviewed: Yes Vitals/I&O/Wt Last Vital Signs Temp 98.6 F 09/11/21 07:15 Pulse 114 H 09/11/21 07:15 Resp 18 09/11/21 07:15 BP 139/85 09/11/21 07:15 Pulse Ox 90 09/11/21 07:15 09/10/21 09/11/21 09/11/21 22:59 06:59 14:59 Intake Total 800 / 2200 1550 / 3750 Output Total 720 / 1160 660 / 1820 Balance 80 / 1040 890 / 1930 Weight last 48 hrs Weight 160 lb 12.8 oz Weight 155 lb 6.4 oz Physical Exam Narrative: EXAM NARRATIVE: Patient is conscious alert oriented X3 Anxious BMI 21.1 Head and neck examination PERRLA no masses no cervical lymphadenopathy no jaundice Cardiac examination audible S1-S2 no murmurs no gallops no arrhythmias Chest is clear bilateral,abscence of Rhonchi or wheezes,no surgical emphysema Abdomen nontender except at the midline incision mildly distended soft no organomegaly guarding or rigidity/no signs of peritonitis, packing in place. Wound bed is clean with out evidence of surgical site infection. Packing was done bedside by me and assistance of the nursing staff. Right lower quadrant drain in place with serosanguineous output Right groin reducible hernia stable exam Castañeda catheter in place Extremities no cyanosis no clubbing no edema Urinary Catheter Management^: Castañeda: Cath Placed During This Visit: yes Urinary Catheter Date of Insertion: 09/09/21 Urinary Catheter Time of Insertion: 12:41 Data : 09/11/21 04:15 09/11/21 04:15 Micro: Microbiology 09/09/21 19:03 Blood Culture - Preliminary Blood NEGATIVE TO DATE 09/09/21 19:03 Blood Culture - Preliminary Blood NEGATIVE TO DATE A&P Assessment and plan (1) Status post Jorge procedure: Assessment 66 years old gentleman status post exploratory laparotomy, Mccloud's procedure(sigmoid colon resection) with reimplantation of the left ureter status post inadvertent injury during the resection. 09/09/2021 Plan We will start the patient slowly on clear liquid diet Incentive spirometer every hour We will add hydrocodone 5/325 mg p.o. every 6 hours as needed for pain Continue wound care in the form of daily packing of the wound using wet-to-dry 1 inch Nu Gauze followed by Anthony I will defer to Dr. Miramontes to address patient's anxiety electrolyte replacement per hospitalist service Ostomy care and teaching Castañeda catheter care and teaching Encourage ambulation Continue pharmacologic DVT prophylaxis Assurance and education All questions have been answered and all concerns have been addressed to patient's satisfaction. Status: Acute Attestations Medical Necessity Statement*: Patient requiring hospitalization for perioperative care and pain control and continuation of antimicrobial therapy Time Spent in Patient Care: (>than 50% of time spent in counselling and/or direct pt care on unit). Coding Level of Care Code Acute Freight Traffic Consultant for [facility] Fwd Diagnoses Status post Jorge procedure Z93.3
[2021-09-11] MEDS: ipratropium-albuterol 3 mL Neb INHALATION ×2 (09:01→22:17)
[2021-09-11] MEDS: nicotine 21 mg Patch 1 PATCH TRANSDERMA (09:13)
[2021-09-11] MEDS: HYDROcodone-acetaminophen 5-325 mg Tablet 1 TAB PO ×2 (11:06→18:22)
--- NOTE | 2021-09-11 12:22 | PC.CHAP ---
Pastoral Care Encounter/Spiritual Assessment Type of Contact [] Declined laborer fryer farm visit [] Patient/Family/Request visit [] Outpatient visit [] Follow-up visit [] Physician referral [] Code/Alert [XX] Routine visit [] Staff referral [] Actively dying [] Patient sleeping [] Family support [] [] Out of room [] Palliative care [] [] Receiving care in room [] Pre-surgical visit [] Trauma [] Long length of stay [] ICU visit [XX] Other: Pt appreciated laborer fryer farm stopping by but was about to go to sleep. Cloth Calender will check on pt tomorrow. Relational/Emotional Strength [] Patient feels connected with others/family/visitors/staff [] Distress [] Loneliness/isolation [] Abandonment Spirituality of Patient [] Person of Lisa [] Attends Shinto of their Lisa [] Believes in Prayer [] Reads Bible or Yarsanism materials [] There are Spiritual issues to be addressed Cloth Calender Interventions [] Prayer [] Active listening [] Non-anxious presence [] Spiritual/emotional support [] Crisis/trauma care [] Spiritual counseling [] Bereavement support [] Provided bereavement packet [] Provided Bible/devotional materials [] Provided toy/stuffed animal, coloring book to patient or family member [] Provided Communion [] Anointing/[place] [] Salvation [] Completed spiritual assessment [] Other: Impact on Illness or Injury [] Angry [] Fearful [] Anxious [] Often cries [] Exhaustion [] Unable to work [] Unable to attend amish [] Unable to walk/stand [] Unable to read [] Unable to drive [] Unable to eat/drink [] Unable to sleep [] Unable to be with family [] Patient intubated [] Other: Summary Time spent with patient
[2021-09-11] MEDS: tamsulosin 0.4 mg Capsule PO (15:06)
[2021-09-11] MEDS: D5-NS 0.45% + KCL 20 mEq 20 MEQ/1,000 ML BAG 75 MEQ IV (15:18)
[2021-09-11] MEDS: potassium chloride ER 20 mEq Tablet 40 MEQ PO (15:19)
--- NOTE | 2021-09-11 18:23 | P.PN_ITS ---
Subjective Subjective: Interval history: Seen this morning. Patient is on room air. He said he passed flatus through his colostomy bag. He says Dr. Leung will be coming in later on to teach him how to use the bed. He also states he is doing well but his abdomen is a little bit sore which is expected after surgery. He offers no other complaints and says he would like to go home as soon as possible. Vitals/I&O/Wt Last Vital Signs Temp 98.5 F 09/11/21 14:57 Pulse 112 H 09/11/21 16:02 Resp 18 09/11/21 16:02 BP 157/85 09/11/21 14:57 Pulse Ox 81 L 09/11/21 16:02 09/11/21 09/11/21 09/11/21 06:59 14:59 22:59 Intake Total 1550 / 3750 1900 / 1900 1200 / 3100 Output Total 660 / 1820 725 / 725 950 / 1675 Balance 890 / 1930 1175 / 1175 250 / 1425 Weight last 48 hrs Weight 72.938 kg Weight 70.488 kg Physical Exam Narrative: EXAM NARRATIVE: General: Alert oriented x3. Laying in bed on room air appearing comfortable. HEENT: Normocephalic, atraumatic, EOMI Cardio: Regular rate rhythm, normal S1-S2, no murmurs Respiratory: Good bilateral air entry, no wheezes no rhonchi appreciated, lungs clear to auscultation GI: Abdomen is more soft compared to yesterday, mildly tender to palpation throughout all quadrants, less distended , colostomy present, stoma edematous and beefy red appearing, bowel sounds present but hypoactive, midline incision with dayton appears clean and no sign of erythema around. Right pelvic drain present draining serosanguineous fluid about 20 cc in bulb seen, also output of brownish fecal matter seen and colostomy bag. Extremities: Pulses 2+, no edema, no cyanosis Neurological: No focal neurological deficits. Able to move all 4 extremities. Urinary Catheter Management^: Castañeda: Cath Placed During This Visit: yes Urinary Catheter Date of Insertion: 09/09/21 Urinary Catheter Time of Insertion: 12:41 Data : 09/11/21 04:15 09/11/21 04:15 Micro: Microbiology 12/09/21 18:45 Urine Culture - Preliminary Urine Catheterized 09/09/21 19:03 Blood Culture - Preliminary Blood NEGATIVE TO DATE 09/09/21 19:03 Blood Culture - Preliminary Blood NEGATIVE TO DATE A&P Assessment and plan (1) Intraoperative ureteral injury: Status: Acute (2) Pneumatosis intestinalis of large intestine: Status: Resolved (3) Diverticulitis: Status: Acute (4) Smoker: Status: Chronic (5) Status post exploratory laparotomy: Status: Acute (6) Colostomy in place: Status: Acute (7) Status post Jorge procedure: Status: Acute (8) Sepsis: Status: Acute (9) Ischemic bowel syndrome: Status: Acute (10) HTN (hypertension): Status: Acute (11) COPD (chronic obstructive pulmonary disease): Status: Acute Additional A&P Information #Sepsis secondary to ischemic bowel, divirticulitis #S/p exploratory laparatomy #S/p left ureteral intraoperative injury s/p repair #S/p colostomy roberts procedure - WBC 61495 09/09[place] [address]. Peripheral smear consistent with sepsis. Flow cytometry has been ordered just to be on the shorter side. - Patients vitals are stable and is not requiring pressors. -We will escalate patient's antibiotic to Vanco imipenem and Flagyl. -Lactic acid normal, blood culture negative to date, urinalysis urine culture pending. Continue ice chips for now. ?Diet recommendations as per general surgery. ?Continue pain management #COPD #Smoker - Dr. Lentz stated that patient had ronchi prior to surgery today. - Duoneb Q4 hours QID Full Code DVT PPX: Heparin 5000 subcu twice daily. Attestations Medical Necessity Statement*: Greater than 48-hour stay in the hospital. WBC count 33,000. Coding Level of Care Code Acute Router Operator Pin for [facility] Fwd Diagnoses Intraoperative ureteral injury N99.81 Pneumatosis intestinalis of large intestine K63.89 Diverticulitis K57.92 Smoker F17.200 Status post exploratory laparotomy Z98.[address] Z93.3 Status post Jorge procedure Z93.3 Sepsis A41.9 Ischemic bowel syndrome K55.9 HTN (hypertension) I10 COPD (chronic obstructive pulmonary disease) J44.9
[2021-09-12] VITALS (14 sets, daily range): BP systolic 045–162; BP diastolic 65–81; PULSE 95–115; RESP 16–18; TEMP 36.6–37.3; O2SAT 79–92
[2021-09-12] MEDS: vancomycin 1,000 MG in sodium chloride 0.9% 250 ML 250 MG IV ×3 (00:31→17:59)
--- NOTE | 2021-09-12 05:06 | PC.NURSE ---
refuses to keep o2 on
[2021-09-12] MEDS: famotidine 20 mg/2 mL INJ IVP ×2 (05:21→17:20)
[2021-09-12] MEDS: heparin 5,000 unit/mL INJ 1 mL 5000 UNIT SUBCUT ×2 (05:21→17:21)
[2021-09-12] MEDS: metroNIDAZOLE IV 500 MG/100 ML PREMIX 100 MG IV ×3 (05:21→19:55)
[2021-09-12 06:08] LABS: Basophils # 0.1 10^3/uL (0.0-0.1); Basophils % 0.2 %; Hematocrit 37.4 % (42.0-52.0); Hemoglobin 12.9 g/dL (11.7-16.6); Lymphocytes # 0.9 10^3/uL (0.8-4.8); Lymphocytes % 2.8 %; Mean Corpuscular HGB Conc 34.5 g/dL (30.0-36.0); Mean Corpuscular Hemoglobin 31.6 pg (28.0-34.0); Mean Corpuscular Volume 91.7 fl (80-94); Monocytes # 1.9 10^3/uL (0.2-0.9); Monocytes % 6.3 %; Neutrophils # 27.42 10^3/uL (1.8-7.7); Neutrophils % 89.5 %; Nucleated Red Blood Cells % 0 %; Platelet Count 496 10^3/cmm (130-400); Red Blood Count 4.08 10^6/uL (4.1-5.3); Red Cell Distribution Width 12.3 % (12.1-15.1)
[2021-09-12 06:17] LABS: White Blood Count 30.7 10^3/uL (4.0-10.0)
[2021-09-12 06:28] LABS: Blood Urea Nitrogen 5 mg/dL (8-23); Calcium 7.3 mg/dL (8.5-10.5); Carbon Dioxide 20 mmol/L (22-29); Chloride 95 mmol/L (98-107); Glomerular Filtration Rate 215.2 mL/min (90-130); Glucose 130 mg/dL (65-115); Magnesium 1.6 mg/dL (1.7-2.3); Osmolality Calculated 265 mOsm/kg (285-295); Sodium 128 mmol/L (136-145)
[2021-09-12] MEDS: nicotine 21 mg Patch 1 PATCH TRANSDERMA (07:58)
--- NOTE | 2021-09-12 08:44 | XRR_ITS ---
PROCEDURE INFORMATION: Exam: XR Chest Exam date and time: 09/12/2021 8:44 AM Age: 66 years old Clinical indication: Shortness of breath; Prior surgery; Surgery type: Abd; Additional info: Hypoxia TECHNIQUE: Imaging protocol: XR of the chest. Views: 1 view. Total images: 1 COMPARISON: CR Chest 2 views* 19792 03/25/2017 1:20 PM FINDINGS: Lungs: Coarse chronic pulmonary markings. Nonspecific bibasilar opacities, favoring atelectasis or pneumonia. Pleural spaces: Unremarkable. No pleural effusion. No pneumothorax. Heart/Mediastinum: Unremarkable. No cardiomegaly. Vasculature: Atherosclerosis is evident. Bones/joints: Diffuse osteopenia noted. Osseous structures are unchanged from the prior exam. XR/XR chest 1V portable [id number] IMPRESSION: 1. Coarse chronic pulmonary markings. 2. Nonspecific bibasilar opacities, favoring atelectasis or pneumonia.
[2021-09-12 09:39] LABS: ABG PCO2 27.8 mmHg (35-45); ABG PH Result 7.56 (7.35-7.45); Alveolar-Arterial Oxygen Gradi 9.3 mmHg (5-10); Arterial Blood Gas Hematocrit 40.3 % (42-52); Base Excess ABG 3.4 mmol/L (-2.0-2.0); Blood Gas Allen Test Pos; Blood Gas Operator Identificat MONRO; Blood Gas Sample Site Radial, right; Blood Gas Sample Type Arterial; Carboxyhemoglobin 1.4 %THgb (0.4-20.1); HCO3 ABG 24.8 mmol/L (22-26); HGB O2 Sat 84.6 % (95-100); Ionized Calcium Level - ABG 1.1 mmol/L (1.1-1.4); Methemoglobin 0.7 % (0.4-1.5); Oxygen Device ROOM AIR; Oxygen Saturation ABG 86.4; PO2 ABG 44.7 mmHg (80.0-100.0); Potassium Level - ABG 2.8 mmol/L (3.5-5.0); Total Hemoglobin 13.2 g/dL (14-18)
--- NOTE | 2021-09-12 09:41 | P.PN_ITS ---
Subjective Subjective: Interval history: Patient continues to pass gas per stoma and have liquidy stools, tolerated p.o. intake to a certain extent yet he did develop some nausea. Adequate urine output and trending down of leukocytosis. Stable H&H. Patient seems to be overall overwhelmed and the bit confused about the stoma and the catheters in his drain. Were not able to wean off oxygen to room air Otherwise no acute events overnight Medications: Reviewed: Yes Vitals/I&O/Wt Last Vital Signs Temp 98.3 F 09/12/21 07:10 Pulse 109 H 09/12/21 07:40 Resp 18 09/12/21 07:40 BP 144/75 09/12/21 07:10 Pulse Ox 79 L 09/12/21 07:40 09/11/21 09/12/21 09/12/21 22:59 06:59 14:59 Intake Total 1770 / 3670 1450 / 5120 Output Total 1050 / 1775 430 / 2205 150 / 150 Balance 720 / 1895 1020 / 2915 -150 / -150 Weight last 48 hrs Weight 163 lb 4.8 oz Weight 160 lb 12.8 oz Physical Exam Narrative: EXAM NARRATIVE: Patient is conscious alert oriented X3 Less Anxious BMI 21.1 Head and neck examination PERRLA no masses no cervical lymphadenopathy no jaundice Cardiac examination audible S1-S2 no murmurs no gallops no arrhythmias Chest is clear bilateral,abscence of Rhonchi or wheezes,no surgical emphysema Abdomen nontender except at the midline incision mildly distended soft no orga nomegaly guarding or rigidity/no signs of peritonitis, packing in place. Colostomy is pink and patent with residual stool and gas in the stoma bag Wound bed is clean with out evidence of surgical site infection. Right lower quadrant drain in place with serosanguineous output Right groin reducible hernia stable exam Castañeda catheter in place with dark urine but no hematuria Extremities no cyanosis no clubbing no edema Urinary Catheter Management^: Castañeda: Cath Placed During This Visit: yes Urinary Catheter Date of Insertion: 09/09/21 Urinary Catheter Time of Insertion: 12:41 Data : 09/12/21 05:45 09/12/21 05:45 Micro: Microbiology 09/09/21 18:45 Urine Culture - Final Urine Catheterized A&P Assessment and plan (1) Status post Jorge procedure: Assessment 66 years old gentleman status post exploratory laparotomy, Mccloud's procedure(sigmoid colon resection) with reimplantation of the left ureter status post inadvertent injury during the resection. 09/09/2021 Plan We will continue clear liquid diet and protein shakes slowly Incentive spirometer every hour hydrocodone 5/325 mg p.o. every 6 hours as needed for pain and will get rid of the IV narcotics Continue wound care in the form of daily packing of the wound using wet-to-dry 1 inch Nu Gauze followed by ABDs Electrolyte replacement Ostomy care and teaching Castañeda catheter care and teaching Encourage ambulation Continue pharmacologic DVT prophylaxis Broad-spectrum antibiotics per hospitalist service I do believe at this point it would be appropriate to switch the admitting service to the hospitalist and I will continue to follow as a consult. Assurance and education All questions have been answered and all concerns have been addressed to marissa hawkins's satisfaction. Status: Acute Attestations Medical Necessity Statement*: Continue inpatient hospitalization passing 2 midnights for perioperative care Time Spent in Patient Care: (>than 50% of time spent in counselling and/or direct pt care on unit) . Coding Level of Care Code Acute Nutrition Manager for [facility] Fwd Diagnoses Status post Jorge procedure Z93.3
[2021-09-12 10:25] LABS: SARS Covid-2 Antigen Negative (Negative)
[2021-09-12] MEDS: magnesium sulfate premix 2 GM/50 ML PIGGYBACK IV ×2 (10:46→11:50)
--- NOTE | 2021-09-12 11:07 | PC.NURSE ---
clarified with Dr Miramontes that she wants 4mg Magnesium and 60mEq of Potassium since her and Dr Leung put orders in for both meds.
[2021-09-12] MEDS: potassium chloride ER 20 mEq Tablet 60 MEQ PO (11:21)
--- NOTE | 2021-09-12 12:14 | PC.CHAP ---
Pastoral Care Encounter/Spiritual Assessment Type of Contact [] Declined personal property assessor visit [] Patient/Family/Request visit [] Outpatient visit [XX] Follow-up visit [] Physician referral [] Code/Alert [XX] Routine visit [] Staff referral [] Actively dying [] Patient sleeping [] Family support [] [] Out of room [] Palliative care [] [XX] Receiving care in room [] Pre-surgical visit [] Trauma [] Long length of stay [] ICU visit [] Other: Relational/Emotional Strength [] Patient feels connected with others/family/visitors/staff [] Distress [] Loneliness/isolation [] Abandonment Spirituality of Patient [] Person of Lisa [] Attends Anglican of their Lisa [] Believes in Prayer [] Reads Bible or Islam materials [] There are Spiritual issues to be addressed Double Needle Operator Lockstitch Interventions [] Prayer [] Active listening [] Non-anxious presence [] Spiritual/emotional support [] Crisis/trauma care [] Spiritual counseling [] Bereavement support [] Provided bereavement packet [] Provided Bible/devotional materials [] Provided toy/stuffed animal, coloring book to patient or family member [] Provided Communion [] Anointing/[place] [] Salvation [] Completed spiritual assessment [] Other: Impact on Illness or Injury [] Angry [] Fearful [] Anxious [] Often cries [] Exhaustion [] Unable to work [] Unable to attend gnosticism [] Unable to walk/stand [] Unable to read [] Unable to drive [] Unable to eat/drink [] Unable to sleep [] Unable to be with family [] Patient intubated [] Other: Summary Time spent with patient
[2021-09-12] MEDS: tamsulosin 0.4 mg Capsule PO (13:06)
[2021-09-12] MEDS: ondansetron 2 mg/ML SDV 2 mL 4 MG IVP ×3 (14:40→23:00)
[2021-09-12] MEDS: ipratropium-albuterol 3 mL Neb INHALATION (15:10)
--- NOTE | 2021-09-12 15:36 | P.PN_ITS ---
Subjective Subjective: Interval history: Seen this morning. He has also been refusing breathing treatments buddesonide and DuoNeb by respiratory therapy. Patient is noncompliant with oxygen therapy. He keeps taking off the nasal cannula and is desaturated down to 79-80%. Daughter also present in the room and I have discussed with her the importance of oxygen and she understands. She has tried to reason with him as well but he is refusing to wear oxygen at this time. Otherwise patient denies shortness of breath, chest pain, abdominal pain at this time. Has been passing gas in the colostomy bag and also has ostomy output. WBC count is down to 30,000 today. No evidence of bandemia. Patient and daughter were also updated in detail regarding being exposed to COVID during hospital stay. All questions were answered. Vitals/I&O/Wt Last Vital Signs Temp 97.9 F 09/12/21 15:24 Pulse 115 H 09/12/21 15:24 Resp 18 09/12/21 15:24 BP 145/65 09/12/21 15:24 Pulse Ox 91 09/12/21 15:24 09/12/21 09/12/21 09/12/21 06:59 14:59 22:59 Intake Total 1450 / 5120 670 / 670 Output Total 430 / 2205 150 / 150 Balance 1020 / 2915 520 / 520 Weight last 48 hrs Weight 74.072 kg Weight 72.938 kg Physical Exam Narrative: EXAM NARRATIVE: General: Alert oriented x3. Laying in bed on room air appearing comfortable. HEENT: Normocephalic, atraumatic, EOMI Cardio: Regular rate rhythm, normal S1-S2, no murmurs Respiratory: Very diminished air entry throughout all lung ramos. No gross wheezes or ronchi. GI: Abdomen is more soft compared to yesterday, mildly tender to palpation throughout all quadrants, less distended , colostomy present, stoma edematous and beefy red appearing, bowel sounds present but hypoactive, midline incision with dayton appears clean and no sign of erythema around. Right pelvic drain present draining serosanguineous fluid about 45 cc in bulb seen, also output of brownish fecal matter seen and colostomy bag. Extremities: Pulses 2+, no edema, no cyanosis Neurological: No focal neurological deficits. Able to move all 4 extremities. Urinary Catheter Management^: Castañeda: Cath Placed During This Visit: yes Urinary Catheter Date of Insertion: 09/09/21 Urinary Catheter Time of Insertion: 12:41 Data : 09/12/21 05:45 09/12/21 05:45 Micro: Microbiology 09/09/21 18:45 Urine Culture - Final Urine Catheterized A&P Assessment and plan (1) Intraoperative ureteral injury: Status: Acute (2) Pneumatosis intestinalis of large intestine: Status: Resolved (3) Diverticulitis: Status: Acute (4) Smoker: Status: Chronic (5) Status post exploratory laparotomy: Status: Acute (6) Colostomy in place: Status: Acute (7) Status post Jorge procedure: Status: Acute (8) Sepsis: Status: Acute (9) Ischemic bowel syndrome: Status: Acute (10) HTN (hypertension): Status: Acute (11) COPD (chronic obstructive pulmonary disease): Status: Acute Additional A&P Information #Sepsis secondary to ischemic bowel, divirticulitis #S/p exploratory laparatomy #S/p left ureteral intraoperative injury s/p repair #S/p colostomy roberts procedure - WBC 65063 09/09. White count down to 30,000. Peripheral smear consistent with sepsis. Flow cytometry has been ordered just to be on the shorter side. I do not recommend discharging this patient until WBC count down significantly. He will need several days of IV antibiotics for now. - Patients vitals are stable and is not requiring pressors. -Will continue patient's antibiotic to Vanco imipenem and Flagyl. -Lactic acid normal, blood culture negative to date, urinalysis urine culture pending. Continue ice chips for now. ?Diet recommendations as per general surgery. ?Continue pain management #COPD #Smoker #COVID exposure in hospital - Dr. Lentz stated that patient had ronchi prior to surgery today. - Duoneb Q4 hours QID - INhaled budesonide - Will not do systemic steroids due to recent surgery. - WIll send for covid PCR. Rapid is negative. - Not a candidate for monoclonal infusion due to requiring oxygen. - If COVID positive, will discuss with pt further management - NOt on O2 at home that he is aware of. Was supposed to be on inhalers as per daughter but does not take. - He will probably need O2 at discharge. Full Code DVT PPX: Heparin 5000 subcu twice daily. Attestations Medical Necessity Statement*: > 72 hours stay Coding Level of Care Code Acute Pullman Car Repairer for [facility] Fwd Diagnoses Intraoperative ureteral injury N99.81 Pneumatosis intestinalis of large intestine K63.89 Diverticulitis K57.92 Smoker F17.200 Status post exploratory laparotomy Z98.[address] Z93.3 Status post Jorge procedure Z93.3 Sepsis A41.9 Ischemic bowel syndrome K55.9 HTN (hypertension) I10 COPD (chronic obstructive pulmonary disease) J44.9
[2021-09-12 16:47] LABS: Vancomycin Trough 12.1 ug/mL (10-15)
--- NOTE | 2021-09-12 17:42 | PC.NURSE ---
rcvd verbal order to switch 40mEq potassium to iv with lidocaine. health technical writer put order in.
[2021-09-12] MEDS: lidocaine 1% 5 ML in potassium chloride premix 100 ML 25 ML IV (18:11)
--- NOTE | 2021-09-12 20:43 | PC.NURSE ---
refusing to wear o2
--- NOTE | 2021-09-12 23:09 | PC.NURSE ---
patient c/o abdominal pain, ordered meds discussed with patient, reminding patient that he is still vomiting and if he takes oral meds he could throw it up, patient agreed to take IVP pain med, verbalized not liking too many things going through his vein, stated i dont have blood left running in my veins its just all chemicals , when rn went in to administer zofran and pain med, patient refused pain med. verbalized he didn't need it and pain is rated at 3
[2021-09-13] VITALS (14 sets, daily range): BP systolic 118–162; BP diastolic 72–89; PULSE 100–118; RESP 1–18; TEMP 37.1–37.7; O2SAT 81–97
[2021-09-13] MEDS: vancomycin 1,000 MG in sodium chloride 0.9% 250 ML 250 MG IV ×3 (00:50→17:04)
--- NOTE | 2021-09-13 01:02 | PC.NURSE ---
patient had been refusing to wear 02, 02 sat 81%, spoke with patient and able to convince patient to wear 02, 02 sat 92% after 2 minutes on 02.
[2021-09-13] MEDS: metroNIDAZOLE IV 500 MG/100 ML PREMIX 100 MG IV (04:02)
[2021-09-13] MEDS: heparin 5,000 unit/mL INJ 1 mL 5000 UNIT SUBCUT ×2 (05:07→17:04)
[2021-09-13 05:42] LABS: Basophils # 0.1 10^3/uL (0.0-0.1); Basophils % 0.2 %; Eosinophils # 0.1 10^3/uL (0.0-0.8); Eosinophils % 0.2 %; Hematocrit 36.9 % (42.0-52.0); Lymphocytes # 1.1 10^3/uL (0.8-4.8); Lymphocytes % 3.5 %; Mean Corpuscular HGB Conc 35.2 g/dL (30.0-36.0); Mean Corpuscular Hemoglobin 31.9 pg (28.0-34.0); Mean Corpuscular Volume 90.4 fl (80-94); Mean Platelet Volume 9.4 fL (7.4-10.4); Monocytes % 6.5 %; Neutrophils # 27.29 10^3/uL (1.8-7.7); Neutrophils % 88.6 %; Nucleated Red Blood Cells % 0 %; Platelet Count 503 10^3/cmm (130-400); Red Blood Count 4.08 10^6/uL (4.1-5.3); Red Cell Distribution Width 12.1 % (12.1-15.1)
[2021-09-13] MEDS: famotidine 20 mg/2 mL INJ IVP (05:44)
[2021-09-13 05:46] LABS: White Blood Count 30.8 10^3/uL (4.0-10.0)
[2021-09-13 06:00] LABS: Blood Urea Nitrogen 7 mg/dL (8-23); Calcium 7.3 mg/dL (8.5-10.5); Carbon Dioxide 22 mmol/L (22-29); Chloride 95 mmol/L (98-107); Glomerular Filtration Rate 215.2 mL/min (90-130); Glucose 111 mg/dL (65-115); Osmolality Calculated 273 mOsm/kg (285-295); Sodium 132 mmol/L (136-145)
[2021-09-13 06:01] LABS: Anion Gap 18.4 (5-19); Potassium 3.4 mmol/L (3.5-5.1)
[2021-09-13] MEDS: nicotine 21 mg Patch 1 PATCH TRANSDERMA (08:27)
[2021-09-13] MEDS: sodium chloride 0.9% 1,000 ML 75 ML IV ×2 (08:27→22:30)
--- NOTE | 2021-09-13 08:36 | PC.NURSE ---
patient requesting heart burn medications and anxiety medication. Dr Sun notified.
--- NOTE | 2021-09-13 08:51 | PC.NURSE ---
rcvd verbal order from Dr Sun for GI Cocktail.
[2021-09-13] MEDS: budesonide 0.5 mg/2 mL Neb INHALATION (09:47)
[2021-09-13] MEDS: ipratropium-albuterol 3 mL Neb INHALATION ×3 (09:48→16:00)
--- NOTE | 2021-09-13 10:17 | P.PN_ITS ---
Subjective Subjective: Interval history: Patient overall has been having repeated nausea and vomiting initially was attributed to the potassium pill but per nursing staff he has been drinking a lot of volume of fluid in a short period of time. Maintain to have good urine output and passing gas per stoma and loose stools. Trending down leukocytosis slowly Medications: Reviewed: Yes Vitals/I&O/Wt Last Vital Signs Temp 99.1 F 09/13/21 08:00 Pulse 100 09/13/21 10:00 Resp 1 L 09/13/21 10:00 BP 162/87 09/13/21 08:00 Pulse Ox 97 09/13/21 10:00 09/12/21 09/13/21 09/13/21 22:59 06:59 14:59 Intake Total 675 / 1345 640 / 1985 250 / 250 Output Total 1135 / 1285 650 / 1935 260 / 260 Balance -460 / 60 -10 / 50 -10 / -10 Weight last 48 hrs Weight 162 lb 14.4 oz Weight 163 lb 4.8 oz Physical Exam Narrative: EXAM NARRATIVE: Patient is conscious alert oriented X3 Continues to be anxious and eager to go home as soon as possible BMI 21.1 Head and neck examination PERRLA no masses no cervical lymphadenopathy no jaundice Cardiac examination audible S1-S2 no murmurs no gallops no arrhythmias Chest is clear bilateral,abscence of Rhonchi or wheezes,no surgical emphysema Abdomen nontender except at the midline incision mildly distended soft no organomegaly guarding or rigidity/no signs of peritonitis, packing in place. Colostomy is pink and patent with residual stool and gas in the stoma bag Wound bed is clean with out evidence of surgical site infection. Right lower quadrant drain in place with serosanguineous output Right groin reducible hernia stable exam Castañeda catheter in place with clear urine Extremities no cyanosis no clubbing no edema Urinary Catheter Management^: Castañeda: Cath Placed During This Visit: yes Urinary Catheter Date of Insertion: 09/09/21 Urinary Catheter Time of Insertion: 12:41 Data : 09/13/21 05:15 09/13/21 05:15 Micro: Microbiology 09/09/21 18:45 Urine Culture - Final Urine Catheterized A&P Assessment and plan (1) Status post Jorge procedure: Assessment 66 years old gentleman status post exploratory laparotomy, Mccloud's procedure(sigmoid colon resection) with reimplantation of the left ureter status post inadvertent injury during the resection. 09/09/2021 Plan We will continue clear liquid diet slowly and protein shakes slowly, if patient vomits again will have him n.p.o. Incentive spirometer every hour hydrocodone 5/325 mg p.o. every 6 hours as needed for pain and will get rid of the IV narcotics Continue wound care in the form of daily packing of the wound using wet-to-dry 1 inch Nu Gauze followed by ABDs Electrolyte replacement Ostomy care and teaching Castañeda catheter care and teaching Encourage ambulation Continue pharmacologic DVT prophylaxis Broad-spectrum antibiotics per hospitalist service Assurance and education All questions have been answered and all concerns have been addressed to patient's satisfaction. Status: Acute Attestations Medical Necessity Statement*: Continue inpatient hospitalization passing 2 midnights for perioperative care Time Spent in Patient Care: 16 - 35 minutes Coding Level of Care Code Acute It Infrastructure Engineer for [facility] Fwd Diagnoses Status post Jorge procedure Z93.3
--- NOTE | 2021-09-13 10:18 | PC.RESP ---
Patient said he was nauseated and throwing up- he had his trash can in his bed - patient also said he was not leaving today. We will follow up with a home O2 evaluation tomorrow.
--- NOTE | 2021-09-13 10:21 | PC.RESP ---
Attempted to walk patient per Home O2 Evaluation order. Pt on 3l nc at this time- placed on room air- Spo2 on room air 90%- we did not do a walking oximetry on him today- He had a trash can in his bed and was nauseated and throwing up. We will follow up upon discharge.
--- NOTE | 2021-09-13 10:42 | PC.NURSE ---
patient's requesting HH. [place] Seamer notified Case Management notified.
[2021-09-13] MEDS: HYDROcodone-acetaminophen 5-325 mg Tablet 1 TAB PO (11:17)
[2021-09-13] MEDS: tamsulosin 0.4 mg Capsule PO (11:17)
--- NOTE | 2021-09-13 13:22 | P.PN_ITS ---
Subjective Subjective: Interval history: This morning patient was complaining of GERD, acid reflux and excessive hiccups Hemodynamically stable Adequate output from colostomy bag at the bedside Flow cytometry has been sent on Monday Persistent leukocytosis, white count around 30,000 Potassium 3.4, as per the nursing staff yesterday when he was swelling potassium tablet he had an massive episode of emesis, no recurrence since that event, he is tolerating clear liquid diet Dr. Leung has not planned to advance his diet today Currently on Primaxin and vancomycin Continue normal saline at 75 mill per hour for dehydration related tachycardia Vitals/I&O/Wt Last Vital Signs Temp 99.1 F 09/13/21 12:00 Pulse 107 H 09/13/21 12:22 Resp 18 09/13/21 12:22 BP 161/89 09/13/21 12:00 Pulse Ox 92 09/13/21 12:22 09/12/21 09/13/21 09/13/21 22:59 06:59 14:59 Intake Total 675 / 1345 640 / 1985 350 / 350 Output Total 1135 / 1285 650 / 1935 260 / 260 Balance -460 / 60 -10 / 50 90 / 90 Weight last 48 hrs Weight 73.89 kg Weight 74.072 kg Physical Exam Narrative: EXAM NARRATIVE: Patient laying comfortably in his bed Saturating well on 3 L cannula Abdomen soft no signs of peritonitis Colostomy bag has brown color bile-stained feculent material, passing gas No drainage around the back Patient is awake and alert at the bedside EOMI, PERRLA Nonfocal neuro exam No audible stridor or wheezing Sinus tachycardia S1, S2 Urinary Catheter Management^: Castañeda: Cath Placed During This Visit: yes Urinary Catheter Date of Insertion: 09/09/21 Urinary Catheter Time of Insertion: 12:41 Data : 09/13/21 05:15 09/13/21 05:15 Micro: Microbiology 09/09/21 18:45 Urine Culture - Final Urine Catheterized A&P Assessment and plan (1) COPD (chronic obstructive pulmonary disease): Status: Acute (2) HTN (hypertension): Status: Acute (3) Ischemic bowel syndrome: Status: Acute (4) Sepsis: Status: Acute (5) Status post Jorge procedure: Status: Acute (6) Colostomy in place: Status: Acute (7) Status post exploratory laparotomy: Status: Acute (8) Intraoperative ureteral injury: Status: Acute (9) Pneumatosis intestinalis of large intestine: Status: Resolved (10) Smoker: Status: Chronic Additional A&P Information Sepsis secondary to ischemic bowel Status post exploratory laparotomy status post ureteral intraoperative injury status post reconstruction Hemodynamically stable: Sepsis resolved No signs of septic shock Persistent leukocytosis, requested flow cytometry Continue imipenem and vancomycin, discontinue Flagyl for now Persistent hiccups: Currently on Pepcid 20 mg twice daily, I have given him GI cocktail x1, will give 1 dose of Reglan Sinus tachycardia related to dehydration: We will add normal saline maintenance fluid COPD without acute exacerbation currently doing well on 3 to nasal cannula Patient has been noncompliant with his oxygen at home, currently no active wheezing crackles or respiratory distress Secondary to rhonchi inhaled steroids were added, Covid PCR is pending, Left ureteral injury intraoperative, status post reconstruction by Dr. Wang, outpatient follow-up no AMA, making adequate urine Clear liquid diet Full code DVT prophylaxis: Heparin Attestations Medical Necessity Statement*: Continue medical management Time Spent in Patient Care: 16 - 35 minutes Coding Level of Care Code Acute Concession Manager for [facility] Fwd Diagnoses COPD (chronic obstructive pulmonary disease) J44.9 HTN (hypertension) I10 Ischemic bowel syndrome K55.9 Sepsis A41.9 Status post Jorge procedure Z93.[address] Z93.3 Status post exploratory laparotomy Z98.890 Intraoperative ureteral injury N99.81 Pneumatosis intestinalis of large intestine K63.89 Smoker F17.200
[2021-09-13 13:52] LABS: Coronavirus Test Green County Not Detected
[2021-09-13] MEDS: famotidine 20 mg Tablet PO (17:04)
[2021-09-13] MEDS: acetaminophen 325 mg Tablet 650 MG PO (22:39)
[2021-09-14] VITALS (16 sets, daily range): BP systolic 123–152; BP diastolic 66–80; PULSE 95–112; RESP 16–19; TEMP 36.6–37.6; O2SAT 91–110
[2021-09-14] MEDS: vancomycin 1,000 MG in sodium chloride 0.9% 250 ML 250 MG IV ×3 (00:45→20:34)
[2021-09-14 02:22] LABS: Basophils % 0.1 %; Hematocrit 37.3 % (42.0-52.0); Hemoglobin 12.8 g/dL (11.7-16.6); Lymphocytes # 1.2 10^3/uL (0.8-4.8); Lymphocytes % 3.7 %; Mean Corpuscular HGB Conc 34.3 g/dL (30.0-36.0); Mean Corpuscular Hemoglobin 31.4 pg (28.0-34.0); Mean Corpuscular Volume 91.4 fl (80-94); Monocytes # 2.3 10^3/uL (0.2-0.9); Monocytes % 7.2 %; Neutrophils # 27.67 10^3/uL (1.8-7.7); Nucleated Red Blood Cells % 0 %; Platelet Count 601 10^3/cmm (130-400); Red Blood Count 4.08 10^6/uL (4.1-5.3); Red Cell Distribution Width 12.4 % (12.1-15.1)
[2021-09-14 02:44] LABS: White Blood Count 31.5 10^3/uL (4.0-10.0)
[2021-09-14 02:48] LABS: Blood Urea Nitrogen 13 mg/dL (8-23); Calcium 7.3 mg/dL (8.5-10.5); Carbon Dioxide 24 mmol/L (22-29); Chloride 98 mmol/L (98-107); Glomerular Filtration Rate 166.4 mL/min (90-130); Glucose 102 mg/dL (65-115); Osmolality Calculated 280 mOsm/kg (285-295); Sodium 135 mmol/L (136-145)
[2021-09-14] MEDS: heparin 5,000 unit/mL INJ 1 mL 5000 UNIT SUBCUT ×2 (05:10→17:19)
[2021-09-14] MEDS: famotidine 20 mg Tablet PO ×2 (08:18→17:19)
[2021-09-14] MEDS: nicotine 21 mg Patch 1 PATCH TRANSDERMA (08:19)
[2021-09-14] MEDS: ipratropium-albuterol 3 mL Neb INHALATION ×4 (09:20→20:04)
[2021-09-14] MEDS: budesonide 0.5 mg/2 mL Neb INHALATION ×2 (09:20→20:04)
[2021-09-14] MEDS: sodium chloride 0.9% 1,000 ML 75 ML IV (09:55)
[2021-09-14 10:16] LABS: Creatinine Body Fluid 0.41 (0.7-1.2)
--- NOTE | 2021-09-14 11:09 | PM.PN ---
Subjective Subjective: Interval history: Patient seems that he had a better night and no more vomiting. Continues to pass gas and having bowel movements per stoma, serous output per LUIS EDUARDO drain. Pathology discussed with the patient and showed no malignancy Medications: Reviewed: Yes Vitals/I&O/Wt Last Vital Signs Temp 98.1 F 09/14/21 07:20 Pulse 102 H 09/14/21 09:24 Resp 17 09/14/21 09:05 BP 130/74 09/14/21 07:20 Pulse Ox 92 09/14/21 09:05 09/13/21 09/14/21 09/14/21 22:59 06:59 14:59 Intake Total 1470 / 2060 690 / 2750 1626.25 / 1626.25 Output Total 310 / 570 840 / 1410 320 / 320 Balance 1160 / 1490 -150 / 1340 1306.25 / 1306.25 Weight last 48 hrs Weight 152 lb 14.4 oz Weight 162 lb 14.4 oz Physical Exam Narrative: EXAM NARRATIVE: Patient is conscious alert oriented X3 Continues to be anxious and eager to go home as soon as possible BMI 21 Head and neck examination PERRLA no masses no cervical lymphadenopathy no jaundice Cardiac examination audible S1-S2 no murmurs no gallops no arrhythmias Chest is clear bilateral,abscence of Rhonchi or wheezes,no surgical emphysema Abdomen nontender except at the midline incision mildly distended soft no organomegaly guarding or rigidity/no signs of peritonitis, packing in place. Colostomy is pink and patent with residual stool and gas in the stoma bag Wound bed is clean with out evidence of surgical site infection. Right lower quadrant drain in place with serous output,straw colored Right groin reducible hernia stable exam Castañeda catheter in place with clear urine Extremities no cyanosis no clubbing no edema Urinary Catheter Management^ Urinary Catheter Management^: Castañeda: Cath Placed During This Visit: yes Urinary Catheter Date of Insertion: 09/09/21 Urinary Catheter Time of Insertion: 12:41 Data : 09/14/21 01:48 09/14/21 01:48 A&P Assessment and plan (1) Status post Jorge procedure: Assessment 66 years old gentleman status post exploratory laparotomy, Mccloud's procedure(sigmoid colon resection) with reimplantation of the left ureter status post inadvertent injury during the resection. 09/09/2021 Plan Advance to full liquid diet and protein shakes Incentive spirometer every hour hydrocodone 5/325 mg p.o. every 6 hours as needed for pain Continue wound care in the form of daily packing of the wound using wet-to-dry 1 inch Nu Gauze followed by ABDs Electrolyte replacement per hospitalist service Ostomy care and teaching Castañeda catheter care and teaching with the plan to follow-up with Dr. Wang discharge as scheduled Will check fluid creatinine from the drain and compare it to serum creatinine Encourage ambulation Continue pharmacologic DVT prophylaxis Broad-spectrum antibiotics per hospitalist service. Assurance and education All questions have been answered and all concerns have been addressed to patient's satisfaction. Status: Acute Attestations Medical Necessity Statement*: Continue inpatient hospitalization passing 2 midnights for perioperative care Time Spent in Patient Care: 16 - 35 minutes Coding Level of Care Code Acute Program Attendant for Chg Fwd Diagnoses Status post Jorge procedure Z93.3
[2021-09-14] MEDS: tamsulosin 0.4 mg Capsule PO (11:58)
--- NOTE | 2021-09-14 12:03 | PC.SOCIAL ---
IMM Updated Updated pt & family on IMM. No questions voiced. Provided Pt a copy. Initialed, dated, & timed copy in chart.
--- NOTE | 2021-09-14 16:02 | P.PN_ITS ---
Subjective Subjective: Interval history: Flow cytometry might be back by tomorrow, plan to discharge him after advancing his diet on 09/15, no overnight events, plan to remove the drain tomorrow, patient out of bed to chair Sinus tachycardia Vitals/I&O/Wt Last Vital Signs Temp 98.3 F 09/14/21 15:33 Pulse 112 H 09/14/21 15:33 Resp 18 09/14/21 15:33 BP 143/79 09/14/21 15:33 Pulse Ox 91 09/14/21 15:33 09/14/21 09/14/21 09/14/21 06:59 14:59 22:59 Intake Total 690 / 2750 1926.25 / 1926.25 Output Total 840 / 1410 320 / 320 Balance -150 / 1340 1606.25 / 1606.25 Weight last 48 hrs Weight 69.354 kg Weight 73.89 kg Physical Exam Narrative: EXAM NARRATIVE: Sitting in a chair No active complaints S1, S2 Saturating well on 2 L nasal cannula Abdomen soft Good output from colostomy bag Lower symmetry no edema EOMI, PERRLA at the bedside Urinary Catheter Management^: Castañeda: Cath Placed During This Visit: yes Urinary Catheter Date of Insertion: 09/09/21 Urinary Catheter Time of Insertion: 12:41 Data : 09/14/21 01:48 09/14/21 01:48 A&P Assessment and plan (1) COPD (chronic obstructive pulmonary disease): Status: Acute (2) HTN (hypertension): Status: Acute (3) Ischemic bowel syndrome: Status: Acute (4) Sepsis: Status: Acute (5) Status post Jorge procedure: Status: Acute (6) Colostomy in place: Status: Acute (7) Status post exploratory laparotomy: Status: Acute (8) Intraoperative ureteral injury: Status: Acute (9) Pneumatosis intestinalis of large intestine: Status: Resolved (10) Diverticulitis: Status: Acute Additional A&P Information There is plan to discharge him tomorrow, he is tolerating his full liquid diet, Sinus tachycardia we will give him 1 L normal saline bolus and check EKG Persistent leukocytosis, flow cytometry might be resulted by tomorrow, continue Primaxin for now GERD improved Discontinue vancomycin Full liquid diet DVT prophylaxis on board Full code Drain to be removed tomorrow Patient will need outpatient Dr. Wang follow-up along with general surgery Attestations Medical Necessity Statement*: Anticipating discharge tomorrow Time Spent in Patient Care: 16 - 35 minutes Coding Level of Care Code Acute Foreign Language Instructor for Chg Fwd Diagnoses COPD (chronic obstructive pulmonary disease) J44.9 HTN (hypertension) I10 Ischemic bowel syndrome K55.9 Sepsis A41.9 Status post Jorge procedure Z93.[address] Z93.3 Status post exploratory laparotomy Z98.890 Intraoperative ureteral injury N99.81 Pneumatosis intestinalis of large intestine K63.89 Diverticulitis K57.92
--- NOTE | 2021-09-14 16:05 | ECG_ITS ---
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 Measurements Intervals [place] Rate: 114 P: 50 MS: 120 QRS: 28 QRSD: 86 T: 62 QT: 339 QTc: 468 Interpretive Statements SINUS TACHYCARDIA WITH OCCASIONAL VENTRICULAR PREMATURE COMPLEXES LEFT ATRIAL ENLARGEMENT [-0.15mV P-WAVE IN V1/V2] POSSIBLE LEFT VENTRICULAR HYPERTROPHY [VOLTAGE CRITERIA PLUS LAE OR QRS WIDENING] NONSPECIFIC ST & T-WAVE ABNORMALITY No previous ECG available for comparison Electronically Signed On 09-15-2021 22:07:46 [facility] DIRECTOR by Regina Barron M.D. [email or web address] [facility]aksMain[facility] Powerchildren[facility].[id number]
[2021-09-14 16:27] LABS: Vancomycin Trough 16.2 ug/mL (10-15)
--- NOTE | 2021-09-14 16:42 | PC.NURSE ---
Administered 500ml NS bolus with current fluids.
--- NOTE | 2021-09-14 17:10 | PC.NURSE ---
patient's daughter is requesting a CT to be done. She is also requesting UA and Lactate Acid to be checked. She is requesting a call from you as well. Her number is [phone] and her name is Shelby Pantoja. Dr Sun notified.
--- NOTE | 2021-09-14 17:26 | CTR_ITS ---
PROCEDURE INFORMATION: Exam: CT Chest With Contrast; Diagnostic Exam date and time: 09/14/2021 5:26 PM Age: 66 years old Clinical indication: Abdominal pain; Generalized; On breathing; Prior surgery; Surgery type: Bladder, hernia; Patient HX: HX of bladder cancer; Additional info: Persistent leukocytosis TECHNIQUE: Imaging protocol: Diagnostic computed tomography of the chest with contrast. Radiation optimization: All CT scans at this facility use at least one of these dose optimization techniques: automated exposure control; mA and/or kV adjustment per patient size (includes targeted exams where dose is matched to clinical indication); or iterative reconstruction. Contrast material: OMNI 300; Contrast volume: 95 ml; Contrast route: INTRAVENOUS (IV); COMPARISON: CT abdomen pelvis w con* [id number] 09/09/2021 8:41 AM RADIATION DOSE METRICS: Total DLP (mGy-cm): 1238.02 FINDINGS: Thyroid: Partially calcified, less than 10 mm right thyroid nodules. No follow-up recommended. Lungs: Severe centrilobular emphysema throughout both lungs. Severe atelectasis versus consolidation noted in the left lower lobe. Mild atelectasis versus consolidation in the right lower lobe. Pleural spaces: Small bilateral pleural effusions. Heart: No cardiomegaly demonstrated. There is no significant pericardial effusion present. Mediastinal space: Mild mural thickening of the distal thoracic esophagus, suggesting nonspecific esophagitis. Aorta: Atherosclerosis of the thoracic aorta. No aortic aneurysm or dissection. Lymph nodes: No pathologically enlarged lymph nodes are demonstrated. Bones/joints: Mild degenerative spine changes. No acute osseous abnormality. Soft tissues: Unremarkable. COMMENTS: Consistent with the [employer]'s Incidental Findings Committee white paper (J Am Junior Radiol 2015): In patients aged 35 years and older with an incidental thyroid nodule equal to or greater than 1.[address], MRI or extrathyroidal US, further evaluation with dedicated thyroid US is recommended for patients with normal life expectancy and without comorbidities. For smaller nodules without suspicious features, no further evaluation or follow up is recommended. PROCEDURE INFORMATION: Exam: CT Abdomen And Pelvis With Contrast Exam date and time: 09/14/2021 5:26 PM Age: 66 years old Clinical indication: Abdominal pain; Generalized; On breathing; Prior surgery; Surgery type: Bladder, hernia; Patient HX: HX of bladder cancer; Additional info: Persistent leukocytosis TECHNIQUE: Imaging protocol: Computed tomography of the abdomen and pelvis with contrast. Radiation optimization: All CT scans at this facility use at least one of these dose optimization techniques: automated exposure control; mA and/or kV adjustment per patient size (includes targeted exams where dose is matched to clinical indication); or iterative reconstruction. Contrast material: OMNI 300; Contrast volume: 95 ml; Contrast route: INTRAVENOUS (IV); COMPARISON: CT abdomen pelvis w con* [id number] 09/09/2021 8:41 AM RADIATION DOSE METRICS: Total DLP (mGy-cm): 1238.02 FINDINGS: Liver: The liver is unremarkable in appearance. Gallbladder and bile ducts: There is sludge versus noncalcified gallstones within the gallbladder lumen. No gallbladder wall thickening. No biliary dilatation. Pancreas: The pancreas is normal in appearance. No pancreatic duct dilatation. Spleen: The spleen is normal in size and appearance. Adrenal glands: The adrenal glands appear within normal limits. Kidneys and ureters: Left ureteral stent noted. The stent appears appropriately positioned. No residual hydronephrosis. The kidneys are morphologically normal. No renal cyst or solid mass. Stomach and bowel: Diffuse dilatation of the small bowel with air-fluid levels, consistent with small bowel obstruction. Obstruction is secondary to incarcerated right inguinal hernia. Postop change of the distal colon. Status post sigmoid colectomy. There is diffuse mural thickening throughout the remaining colon, consistent with nonspecific colitis. Appendix: No evidence of appendicitis. Intraperitoneal space: No free air. No significant fluid collection. Vasculature: The aorta is atherosclerotic. No aortic aneurysm. Lymph nodes: No pathologically enlarged lymph nodes. Urinary bladder: Castañeda catheter noted in the urinary bladder. The bladder is empty secondary to the presence of the Castañeda catheter. Reproductive: Prostate gland is mildly enlarged. Bones/joints: Degenerative spine changes are noted. Soft tissues: There is a large right inguinal hernia containing multiple dilated small bowel loops. This is consistent with incarcerated bowel within the hernia. No perforation or ischemia of the small bowel noted. CT/CT chest abd pel w con* IMPRESSION: 1. Mild mural thickening of the distal thoracic esophagus, suggesting nonspecific esophagitis. 2. Severe centrilobular emphysema throughout both lungs. 3. Severe atelectasis versus consolidation noted in the left lower lobe. Mild atelectasis versus consolidation in the right lower lobe. This has worsened when compared to 09/09/2021, and may indicate bilateral lower lobe pneumonia. IMPRESSION: 1. Diffuse dilatation of the small bowel with air-fluid levels, consistent with small bowel obstruction. Obstruction is secondary to incarcerated right inguinal hernia. No evidence of small bowel perforation. 2. Postop change of the distal colon. Status post sigmoid colectomy. Left lower quadrant colostomy noted. 3. There is diffuse mural thickening throughout the remaining colon, consistent with nonspecific colitis. This is new when compared to 09/09/2021. No pneumatosis of the colon identified. 4. Biliary sludge versus noncalcified stones in the gallbladder. No changes of acute cholecystitis noted.
--- NOTE | 2021-09-14 18:25 | PC.NURSE ---
patient is negative for covid. Per Dr Sun, ok to discontinue isolation precautions.
[2021-09-14] MEDS: lidocaine 1% 5 ML in potassium chloride premix 100 ML 25 ML IV (18:33)
[2021-09-14] MEDS: sodium chloride 0.9% 1,000 ML 100 ML IV (18:34)
--- NOTE | 2021-09-14 19:53 | P.PN_ITS ---
Subjective Subjective: Interval history: Urology follow-up: Postop day #5 psoas hitch and ureteroneocystotomy. Overall doing well. Urine has cleared. Drain is putting out significant amount of fluid but creatinine level was checked and it was consistent with serum not urine. (Creatinine = 0.41) Drain can be removed at any time. I reviewed with him the operative findings, the important steps moving forward for bladder healing and the plan for indwelling stent for ureteral healing. It is anticipated that we will take the catheter out about 2 weeks postop, ureteral stent removed in clinic about 6 weeks postop. We will request an CYSTOGRAM to be performed prior to office visit for possible catheter removal in the absence of any anastomotic leak etc. He has persistent leukocytosis of unclear etiology at this point. Does not have any evidence of intra-abdominal catastrophe. There are some studies pending to help facilitate answering that question. Vitals/I&O/Wt Last Vital Signs Temp 98.3 F 09/14/21 15:33 Pulse 96 09/14/21 16:11 Resp 18 09/14/21 16:05 BP 143/79 09/14/21 15:33 Pulse Ox 97 09/14/21 16:05 09/14/21 09/14/21 09/14/21 06:59 14:59 22:59 Intake Total 690 / 2750 1926.25 / 1926.25 400 / 2326.25 Output Total 840 / 1410 320 / 320 730 / 1050 Balance -150 / 1340 1606.25 / 1606.25 -330 / 1276.25 Weight last 48 hrs Weight 152 lb 14.4 oz Weight 162 lb 14.4 oz Physical Exam Const: COMMON NORMALS: no acute distress, alert and well nourished GENERAL APPEARANCE: well kempt and well developed ORIENTATION/CONSCIOUSNESS: not confused HENMT: COMMON NORMALS: normocephalic and atraumatic HEAD & SCALP: normocephalic and atraumatic Neck/C-Spine: COMMON NORMALS: full ROM Resp: COMMON NORMALS: normal respiratory effort EFFORT & INSPECTION: No labored and No Actively coughing Neuro: SENSORIUM/ORIENTATION: Yes alert Psych: COMMON NORMALS: mental status grossly normal APPEARANCE: Yes grossly normal and Yes well kempt ATTITUDE: Yes calm and Yes engaged Urinary Catheter Management^: Castañeda: Cath Placed During This Visit: yes Urinary Catheter Date of Insertion: 09/09/21 Urinary Catheter Time of Insertion: 12:41 Data : 09/14/21 01:48 09/14/21 01:48 Micro: Microbiology 09/09/21 19:03 Blood Culture - Final Blood NO GROWTH AFTER 5 DAYS 09/09/21 19:03 Blood Culture - Final Blood NO GROWTH AFTER 5 DAYS A&P Assessment and plan (1) Intraoperative ureteral injury: Status post psoas hitch and left ureteroneocystotomy with left ureteral stent placement intraoperatively. No evidence of concerns at this point. Discussed the need for appropriate healing before catheter and stent removed. Drain can come out anytime. Status: Acute (2) Leukocytosis: Unclear etiology at this point Status: Acute Attestations Medical Necessity Statement*: See attending Coding Level of Care Code Acute Ground Services Instructor for Cherri Gasca History Detailed Exam Detailed Medical Decision Making Moderate Complexity Diagnoses Intraoperative ureteral injury N99.81 Leukocytosis D72.829
[2021-09-14] MEDS: iohexol 300 mg/mL 100 mL Btl IV (23:15)
[2021-09-15] VITALS (12 sets, daily range): BP systolic 144–161; BP diastolic 54–88; PULSE 75–103; RESP 16–20; TEMP 36.7–37.3; O2SAT 91–98
[2021-09-15 02:41] LABS: Basophils # 0.1 10^3/uL (0.0-0.1); Basophils % 0.2 %; Hematocrit 35.5 % (42.0-52.0); Hemoglobin 12.3 g/dL (11.7-16.6); Lymphocytes # 1.2 10^3/uL (0.8-4.8); Lymphocytes % 4.4 %; Mean Corpuscular HGB Conc 34.6 g/dL (30.0-36.0); Mean Corpuscular Hemoglobin 32.2 pg (28.0-34.0); Mean Corpuscular Volume 92.9 fl (80-94); Mean Platelet Volume 9.1 fL (7.4-10.4); Monocytes # 2.2 10^3/uL (0.2-0.9); Neutrophils # 24.01 10^3/uL (1.8-7.7); Neutrophils % 86.5 %; Nucleated Red Blood Cells % 0 %; Platelet Count 566 10^3/cmm (130-400); Red Blood Count 3.82 10^6/uL (4.1-5.3); Red Cell Distribution Width 12.7 % (12.1-15.1); White Blood Count 27.8 10^3/uL (4.0-10.0)
[2021-09-15 03:01] LABS: Lactate Dehydrogenase 211 U/L (135-225)
[2021-09-15 03:02] LABS: Blood Urea Nitrogen 12 mg/dL (8-23); Calcium 7.2 mg/dL (8.5-10.5); Carbon Dioxide 24 mmol/L (22-29); Chloride 103 mmol/L (98-107); Glomerular Filtration Rate 215.2 mL/min (90-130); Glucose 109 mg/dL (65-115); Lactate (Lactic Acid level) 0.8 mmol/L (0.5-2.2); Osmolality Calculated 286 mOsm/kg (285-295); Sodium 138 mmol/L (136-145)
[2021-09-15] MEDS: sodium chloride 0.9% 1,000 ML 100 ML IV (03:46)
[2021-09-15] MEDS: vancomycin 1,000 MG in sodium chloride 0.9% 250 ML 250 MG IV ×3 (04:42→20:37)
[2021-09-15] MEDS: heparin 5,000 unit/mL INJ 1 mL 5000 UNIT SUBCUT ×2 (05:34→17:48)
[2021-09-15] MEDS: ipratropium-albuterol 3 mL Neb INHALATION (08:49)
[2021-09-15] MEDS: budesonide 0.5 mg/2 mL Neb INHALATION ×2 (08:49→20:18)
[2021-09-15] MEDS: nicotine 21 mg Patch 1 PATCH TRANSDERMA (09:41)
[2021-09-15] MEDS: famotidine 20 mg Tablet PO ×2 (09:41→17:48)
--- NOTE | 2021-09-15 11:42 | P.PN_ITS ---
Subjective Subjective: Interval history: IV close appointment started for suspicion of fungal infection From B12 sent on 09/14 Leukocytosis trended down 27.8 today he is afebrile CT abdomen pelvis did show colitis and incarcerated hernia however no signs of strangulation lactic acid is normal Dr. Leung thinks we do not have to do any surgical intervention regarding this hernia is hernia is chronic and: Has postoperative changes Vitals/I&O/Wt Last Vital Signs Temp 98.2 F 09/15/21 11:17 Pulse 102 H 09/15/21 11:17 Resp 16 09/15/21 11:17 BP 149/76 09/15/21 11:17 Pulse Ox 94 09/15/21 11:17 09/14/21 09/15/21 09/15/21 22:59 06:59 14:59 Intake Total 400 / 2326.25 2375 / 4701.25 100 / 100 Output Total 805 / 1125 1570 / 2695 525 / 525 Balance -405 / 1201.25 805 / 2006.25 -425 / -425 Weight last 48 hrs Weight 75.432 kg Weight 69.354 kg Physical Exam Narrative: EXAM NARRATIVE: Patient laying comfortably in his bed LUIS EDUARDO drain with serosanguineous discharge Colostomy bag filled with stool Abdomen soft Patient is tolerating his full liquid diet EOMI, PERRLA Saturating well on 2 L nasal cannula Afebrile No active stridor or wheezing Mild edema of lower extremities Urinary Catheter Management^: Castañeda: Cath Placed During This Visit: yes Urinary Catheter Date of Insertion: 09/09/21 Urinary Catheter Time of Insertion: 12:41 Data : 09/15/21 02:03 09/15/21 02:03 Micro: Microbiology 09/14/21 19:56 Blood Culture - Preliminary Blood SPECIMEN COLLECTED 09/14/21 20:01 Blood Culture - Preliminary Blood SPECIMEN COLLECTED 09/09/21 19:03 Blood Culture - Final Blood NO GROWTH AFTER 5 DAYS 09/09/21 19:03 Blood Culture - Final Blood NO GROWTH AFTER 5 DAYS A&P Assessment and plan (1) Leukocytosis: Status: Acute (2) COPD (chronic obstructive pulmonary disease): Status: Acute (3) Status post Jorge procedure: Status: Acute (4) Colostomy in place: Status: Acute (5) Status post exploratory laparotomy: Status: Acute (6) Intraoperative ureteral injury: Status: Acute (7) Pneumatosis intestinalis of large intestine: Status: Resolved (8) Diverticulitis: Status: Acute (9) Smoker: Status: Chronic (10) Sepsis: Status: Acute Additional A&P Information Sepsis secondary to ischemic bowel Sepsis resolved Patient has persistent bacteremia Hemodynamically stable Loaded with caspofungin on 09/14, leukocytosis trending down on 09/15 Fungitell sent Continue broad-spectrum antibiotics and antifungal for now Would not discharge until white count less than 20,000 Mostly fungal infections do not have any febrile episodes and blood culture remain sterile Suspicion is high for fungal infection at this point Flow cytometry pending CT abdomen pelvis consistent with bilateral pleural effusion, left-sided atelectasis, colitis, incarcerated hernia without any signs of strangulation, Asked Dr. Leung who recommended advance diet to mechanical soft COPD without acute exacerbation currently doing well on 2 L nasal cannula Patient is stating that he has not been using his oxygen at home however he was recommended in the past I do believe this is secondary to atelectasis and bilateral pleural effusion Pleural effusion is not drainable Castañeda catheter in place, status post intraoperative ureteral injury status post reconstruction: Follow-up with Dr. Wang outpatient, Dr. 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
--- NOTE | 2021-09-15 11:52 | P.PN_ITS ---
Subjective Subjective: Interval history: Patient overall feels better and continues to pass gas and stools per stoma, no acute events overnight. Because of the leukocytosis persistence patient's daughter was concerned and she had a discussion with Dr. Iraheta and a CT scan of the chest and abdomen pelvis was done that showed: 1. Mild mural thickening of the distal thoracic esophagus, suggesting nonspecific esophagitis. 2. Severe centrilobular emphysema throughout both lungs. 3. Severe atelectasis versus consolidation noted in the left lower lobe. Mild atelectasis versus consolidation in the right lower lobe. This has worsened when compared to 09/09/2021, and may indicate bilateral lower lobe pneumonia. IMPRESSION: 1. Diffuse dilatation of the small bowel with air-fluid levels, consistent with small bowel obstruction. Obstruction is secondary to incarcerated right inguinal hernia. No evidence of small bowel perforation. 2. Postop change of the distal colon. Status post sigmoid colectomy. Left lower quadrant colostomy noted. 3. There is diffuse mural thickening throughout the remaining colon, consistent with nonspecific colitis. This is new when compared to 09/09/2021. No pneumatosis of the colon identified. 4. Biliary sludge versus noncalcified stones in the gallbladder. No changes of acute cholecystitis noted. Vitals/I&O/Wt Last Vital Signs Temp 98.2 F 09/15/21 11:17 Pulse 102 H 09/15/21 11:17 Resp 16 09/15/21 11:17 BP 149/76 09/15/21 11:17 Pulse Ox 94 09/15/21 11:17 09/14/21 09/15/21 09/15/21 22:59 06:59 14:59 Intake Total 400 / 2326.25 2375 / 4701.25 100 / 100 Output Total 805 / 1125 1570 / 2695 525 / 525 Balance -405 / 1201.25 805 / 2006.25 -425 / -425 Weight last 48 hrs Weight 166 lb 4.8 oz Weight 152 lb 14.4 oz Physical Exam Narrative: EXAM NARRATIVE: Patient is conscious alert oriented X3 Continues to be anxious and eager to go home as soon as possible BMI 21 Head and neck examination PERRLA no masses no cervical lymphadenopathy no ja undice Abdomen nontender except at the midline incision mildly distended soft no organomegaly guarding or rigidity/no signs of peritonitis, packing in place. Colostomy is pink and patent with residual stool and gas in the stoma bag Wound bed is clean with out evidence of surgical site infection. Right lower quadrant drain in place with serous output,straw colored Right groin reducible hernia stable exam Castañeda catheter in place with clear urine Extremities no cyanosis no clubbing no edema Urinary Catheter Management^: Castañeda: Cath Placed During This Visit: yes Urinary Catheter Date of Insertion: 09/09/21 Urinary Catheter Time of Insertion: 12:41 Data : 09/15/21 02:03 09/15/21 02:03 Micro: Microbiology 09/14/21 19:56 Blood Culture - Preliminary Blood SPECIMEN COLLECTED 09/14/21 20:01 Blood Culture - Preliminary Blood SPECIMEN COLLECTED 09/09/21 19:03 Blood Culture - Final Blood NO GROWTH AFTER 5 DAYS 09/09/21 19:03 Blood Culture - Final Blood NO GROWTH AFTER 5 DAYS A&P Assessment and plan (1) Status post Jorge procedure: Assessment 66 years old gentleman status post exploratory laparotomy, Mccloud's procedure(sigmoid colon resection) with reimplantation of the left ureter status post inadvertent injury during the resection. 09/09/2021 Plan I did review the images of the CT scan of the abdomen and pelvis, postoperative changes are stable patient likely have a component of edema and third spacing Advance diet as tolerated and please make sure protein shakes are given with each meal Incentive spirometer every hour Continue wound care in the form of daily packing of the wound using wet-to-dry 1 inch Nu Gauze followed by ABDs Electrolyte replacement per hospitalist service Ostomy care and teaching Will plan to DC intra-abdominal Encourage ambulation Continue pharmacologic DVT prophylaxis Broad-spectrum antibiotics per hospitalist service. Assurance and education All questions have been answered and all concerns have been addressed to patient's satisfaction. I did discuss at length and in depth with patient's daughter and his earlier today during rounds about the findings of the CT scan and potential recommendations for pulmonology consultation as an outpatient as well as hematology, but I will defer further details and discussion with . Patient is making appropriate clinical progress and getting closer to be discharged home Status: Acute Attestations Medical Necessity Statement*: Per hospitalist service Time Spent in Patient Care: 16 - 35 minutes (>than 50% of time spent in counselling and/or direct pt care on unit) . Coding Level of Care Code Acute Telephone Station Installer for Cherri Fwd Diagnoses Status post Jorge procedure Z93.3
[2021-09-15 12:40] LABS: Miscellaneous Test See Scanned Lab Rpt
[2021-09-15] MEDS: tamsulosin 0.4 mg Capsule PO (12:55)
--- NOTE | 2021-09-15 15:40 | PC.NUTR ---
Nutrition note: Discrepancy noted between RD supplement addition and MD order. RD had added Boost Breeze with meals to dietary plan on 09/13/21 per pt preference. However, on 09/14/21 Ensure added per MD order. Clarified with dietary staff to please follow MD order, and upon speaking with pt, pt does in fact prefer the Ensure. Have discontinued the Boost Breeze at this time. Will follow up as appropriate.
--- NOTE | 2021-09-15 15:43 | PC.NUTR ---
Nutrition note: Discrepancy noted between RD supplement addition and MD order. On 09/13/21, Boost Breeze with meals added to meal plan by RD after discussion with pt. However, MD ordered Ensure with meals on 09/14/21. Clarified with dietary staff to please follow MD order. Discussed with pt who confirmed he prefers the Ensure. Have removed the Boost Breeze from meal plan at this time. Will follow up as appropriate.
[2021-09-15 20:25] LABS: Vancomycin Trough 13.1 ug/mL (10-15)
[2021-09-16] VITALS (13 sets, daily range): BP systolic 105–162; BP diastolic 67–80; PULSE 72–104; RESP 16–20; TEMP 36.4–37; O2SAT 91–97
[2021-09-16] MEDS: vancomycin 1,000 MG in sodium chloride 0.9% 250 ML 250 MG IV ×3 (04:46→19:53)
[2021-09-16 05:11] LABS: Basophils # 0.1 10^3/uL (0.0-0.1); Basophils % 0.3 %; Eosinophils # 0.1 10^3/uL (0.0-0.8); Eosinophils % 0.4 %; Hematocrit 34.8 % (42.0-52.0); Hemoglobin 11.9 g/dL (11.7-16.6); Lymphocytes # 1.1 10^3/uL (0.8-4.8); Lymphocytes % 4.4 %; Mean Corpuscular HGB Conc 34.2 g/dL (30.0-36.0); Mean Corpuscular Hemoglobin 31.6 pg (28.0-34.0); Mean Corpuscular Volume 92.3 fl (80-94); Mean Platelet Volume 9.1 fL (7.4-10.4); Monocytes # 1.9 10^3/uL (0.2-0.9); Monocytes % 7.5 %; Neutrophils # 21.44 10^3/uL (1.8-7.7); Neutrophils % 86.6 %; Nucleated Red Blood Cells % 0 %; Platelet Count 500 10^3/cmm (130-400); Red Blood Count 3.77 10^6/uL (4.1-5.3); Red Cell Distribution Width 12.6 % (12.1-15.1); White Blood Count 24.8 10^3/uL (4.0-10.0)
[2021-09-16 05:32] LABS: Lactate (Lactic Acid level) 0.7 mmol/L (0.5-2.2)
[2021-09-16 05:33] LABS: Anion Gap 13.6 (5-19); Blood Urea Nitrogen 6 mg/dL (8-23); Calcium 6.9 mg/dL (8.5-10.5); Carbon Dioxide 23 mmol/L (22-29); Chloride 100 mmol/L (98-107); Glucose 97 mg/dL (65-115); Osmolality Calculated 276 mOsm/kg (285-295); Sodium 134 mmol/L (136-145)
[2021-09-16 05:49] LABS: Potassium 2.6 mmol/L (3.5-5.1)
[2021-09-16] MEDS: heparin 5,000 unit/mL INJ 1 mL 5000 UNIT SUBCUT ×2 (05:53→17:49)
[2021-09-16] MEDS: famotidine 20 mg Tablet PO ×2 (07:35→17:49)
[2021-09-16] MEDS: lidocaine 1% 5 ML in potassium chloride premix 100 ML 25 ML IV ×2 (07:48→12:58)
[2021-09-16 07:55] LABS: Magnesium 1.5 mg/dL (1.7-2.3)
[2021-09-16] MEDS: ipratropium-albuterol 3 mL Neb INHALATION (08:03)
[2021-09-16] MEDS: budesonide 0.5 mg/2 mL Neb INHALATION ×2 (08:03→21:21)
--- NOTE | 2021-09-16 10:35 | PC.SOCIAL ---
IMM Update Pg.2 of IMM updated and reviewed with patient, who verbalized understanding. Copy provided.
[2021-09-16] MEDS: tamsulosin 0.4 mg Capsule PO (11:23)
--- NOTE | 2021-09-16 13:44 | PM.PN ---
Subjective Subjective: Interval history: This morning patient was tolerating his mechanical soft diet he was very happy with his progress today white count is 24,000, fungal panel is pending No overnight events White count trending down We will consult Dr. Irwin to assist with IV fungal duration I would continue broad-spectrum antibiotics, family updated Patient still has LUIS EDUARDO drain, Castañeda catheter draining concentrated urine, Vitals/I&O/Wt Last Vital Signs Temp 97.5 F L 09/16/21 11:40 Pulse 103 H 09/16/21 11:40 Resp 16 09/16/21 11:40 BP 105/67 09/16/21 11:40 Pulse Ox 93 09/16/21 11:40 09/15/21 09/16/21 09/16/21 22:59 06:59 14:59 Intake Total 720 / 3070 570 / 3640 325 / 325 Output Total 1600 / 2475 1480 / 3955 400 / 400 Balance -880 / 595 -910 / -315 -75 / -75 Weight last 48 hrs Weight 72.529 kg Weight 75.432 kg Physical Exam Narrative: EXAM NARRATIVE: Patient sitting comfortably in his bed eating breakfast Adequate output from colostomy bag LUIS EDUARDO drain and Castañeda catheter in place Nonfocal neuro exam S1, S2 Saturating well on 1 L nasal cannula Soft abdomen No audible stridor or wheezing EOMI, PERRLA Urinary Catheter Management^: Castañeda: Cath Placed During This Visit: yes Urinary Catheter Date of Insertion: 09/09/21 Urinary Catheter Time of Insertion: 12:41 Data : 09/16/21 04:56 09/16/21 04:56 Micro: Microbiology 09/14/21 20:01 Blood Culture - Preliminary Blood NEGATIVE TO DATE 09/14/21 19:56 Blood Culture - Preliminary Blood NEGATIVE TO DATE A&P Assessment and plan (1) Leukocytosis: Status: Acute (2) COPD (chronic obstructive pulmonary disease): Status: Acute (3) Ischemic bowel syndrome: Status: Acute (4) Sepsis: Status: Acute (5) Status post Jorge procedure: Status: Acute (6) Colostomy in place: Status: Acute (7) Status post exploratory laparotomy: Status: Acute (8) Intraoperative ureteral injury: Status: Acute (9) Pneumatosis intestinalis of large intestine: Status: Resolved (10) Diverticulitis: Status: Acute Additional A&P Information Sepsis secondary to ischemic bowel Sepsis resolved, nml lactic Patient has persistent ptosis, he does not have any bacteremia, Hemodynamically stable Loaded with caspofungin on 09/14, leukocytosis trending down on 09/15, 09/16 leukocytosis 24,000 Fungitell sent 09/14 Continue broad-spectrum antibiotics and antifungal for now Would not discharge until white count less than 20,000 Mostly fungal infections do not have any febrile episodes and blood culture remain sterile Suspicion is high for fungal infection at this point Flow cytometry negative for malignancy CT abdomen pelvis consistent with bilateral pleural effusion, left-sided atelectasis, colitis, incarcerated hernia without any signs of strangulation, tolerating mech soft COPD without acute exacerbation currently doing well on 1 L nasal cannula Bilateral pleural effusion no active signs of consolidation, atelectasis, he has been noncompliant with his oxygen at home I did use Lasix yesterday and today his oxygen requirement has decreased from 2 L to 1 L Castañeda catheter in place, status post intraoperative ureteral injury status post reconstruction: Follow-up with Dr. Wang outpatient, Dr. Wang recommended cystogram before his evaluation in his clinic No active signs of leakage of urine LUIS EDUARDO drain fluid was collected to check creatinine which is in accordance with serum creatinine level Full code Mechanical soft diet DVT prophylaxis on board Attestations Medical Necessity Statement*: Continue medical management, ID consulted Time Spent in Patient Care: 16 - 35 minutes Coding Level of Care Code Acute Elementary Education Tutor for Chg Fwd Diagnoses Leukocytosis D72.829 COPD (chronic obstructive pulmonary disease) J44.9 Ischemic bowel syndrome K55.9 Sepsis A41.9 Status post Jorge procedure Z93.[address] Z93.3 Status post exploratory laparotomy Z98.890 Intraoperative ureteral injury N99.81 Pneumatosis intestinalis of large intestine K63.89 Diverticulitis K57.92
--- NOTE | 2021-09-16 15:09 | PM.PN ---
Subjective Subjective: Interval history: Patient appears to be doing well and feeling better. No acute events overnight. Continues to pass gas and have loose stools per stoma. Serous output per drain. Medications: Reviewed: Yes Vitals/I&O/Wt Last Vital Signs Temp 97.5 F L 09/16/21 11:40 Pulse 78 09/16/21 14:30 Resp 16 09/16/21 14:30 BP 105/67 09/16/21 11:40 Pulse Ox 92 09/16/21 14:30 09/16/21 09/16/21 09/16/21 06:59 14:59 22:59 Intake Total 570 / 3640 575 / 575 Output Total 1480 / 3955 1100 / 1100 Balance -910 / -315 -525 / -525 Weight last 48 hrs Weight 159 lb 14.4 oz Weight 166 lb 4.8 oz Physical Exam Narrative: EXAM NARRATIVE: Patient is conscious alert oriented X3 Continues to be anxious and eager to go home as soon as possible BMI 21 Head and neck examination PERRLA no masses no cervical lymphadenopathy no jaundice Abdomen nontender except at the midline incision,mildly distended soft no organomegaly guarding or rigidity/no signs of peritonitis, packing in place. Colostomy is pink and patent with residual loose stool and gas in the stoma bag Wound bed is clean with out evidence of surgical site infection. Right lower quadrant drain in place with serous output,straw colored likely ascitic fluid Right groin reducible hernia stable exam Castañeda catheter in place with clear urine Urinary Catheter Management^: Castañeda: Cath Placed During This Visit: yes Urinary Catheter Date of Insertion: 09/09/21 Urinary Catheter Time of Insertion: 12:41 Data : 09/16/21 04:56 09/16/21 04:56 Micro: Microbiology 09/14/21 20:01 Blood Culture - Preliminary Blood NEGATIVE TO DATE 09/14/21 19:56 Blood Culture - Preliminary Blood NEGATIVE TO DATE A&P Assessment and plan (1) Status post Jorge procedure: Assessment 66 years old gentleman status post exploratory laparotomy, Mccloud's procedure(sigmoid colon resection) with reimplantation of the left ureter status post inadvertent injury during the resection. 09/09/2021 Plan Advance diet as tolerated and please make sure protein shakes are given with each meal Continue incentive spirometer every hour Continue wound care in the form of daily packing of the wound using wet-to-dry 1 inch Nu Gauze followed by ABDs and the secondary dressing can be changed as needed Electrolyte replacement per hospitalist service Ostomy care and teaching Will plan to DC intra-abdominal prior to discharge home Encourage ambulation Continue pharmacologic DVT prophylaxis Broad-spectrum antibiotics per hospitalist service. Encourage ambulation. Assurance and education All questions have been answered and all concerns have been addressed to patient's satisfaction. Status: Acute Attestations Medical Necessity Statement*: Per hospitalist service Time Spent in Patient Care: 16 - 35 minutes (>than 50% of time spent in counselling and/or direct pt care on unit). Coding Level of Care Code Acute Licensed Massage Practitioner for Chg Fwd Diagnoses Status post Jorge procedure Z93.3
[2021-09-16] MEDS: magnesium sulfate premix 2 GM/50 ML PIGGYBACK IV (16:12)
[2021-09-16] MEDS: acetaminophen 325 mg Tablet 650 MG PO (18:22)
[2021-09-16 23:40] LABS: Add Urine Culture? Yes; Add Urine Microscopic? YES; Amorphous Sediment Urine 2+ /hpf; Bacteria Urine 1+ /hpf; Bilirubin Urine Neg (Negative); Blood Urine 3+ (Negative); Glucose Urine UA Norm (Normal); Ketones Urine 1+ (Negative); Leukocyte Esterase Urine 1+ (Negative); Mucus Urine TRACE /hpf; Nitrate Urine Negative (Negative); Protein Urine 1+ (Negative); RBC Urine 50-80 /hpf (0-2); Squamous Epithelial Cell Urine 0-4 /hpf (0-5); Urine Appearance Cloudy (CLEAR); Urine Color Amber (Yellow); Urobilinogen Urine 1 mg/dL (Negative); pH Urine 5 (5-7)
[2021-09-17] VITALS (10 sets, daily range): BP systolic 128–155; BP diastolic 76–85; PULSE 84–109; RESP 16–18; TEMP 36.5–36.9; O2SAT 91–97
[2021-09-17 01:56] LABS: Basophils # 0.1 10^3/uL (0.0-0.1); Basophils % 0.4 %; Eosinophils # 0.1 10^3/uL (0.0-0.8); Eosinophils % 0.2 %; Hematocrit 35.2 % (42.0-52.0); Hemoglobin 12.1 g/dL (11.7-16.6); Lymphocytes # 1.1 10^3/uL (0.8-4.8); Lymphocytes % 4.2 %; Mean Corpuscular HGB Conc 34.4 g/dL (30.0-36.0); Mean Corpuscular Hemoglobin 31.9 pg (28.0-34.0); Mean Corpuscular Volume 92.9 fl (80-94); Mean Platelet Volume 9.6 fL (7.4-10.4); Monocytes # 1.8 10^3/uL (0.2-0.9); Monocytes % 6.9 %; Neutrophils # 22.38 10^3/uL (1.8-7.7); Neutrophils % 87.7 %; Nucleated Red Blood Cells % 0 %; Platelet Count 560 10^3/cmm (130-400); Red Blood Count 3.79 10^6/uL (4.1-5.3); Red Cell Distribution Width 12.8 % (12.1-15.1); White Blood Count 25.5 10^3/uL (4.0-10.0)
[2021-09-17 02:24] LABS: Magnesium 1.8 mg/dL (1.7-2.3)
[2021-09-17 02:28] LABS: Anion Gap 14.8 (5-19); Blood Urea Nitrogen 10 mg/dL (8-23); Calcium 7.3 mg/dL (8.5-10.5); Carbon Dioxide 23 mmol/L (22-29); Chloride 103 mmol/L (98-107); Glomerular Filtration Rate 215.2 mL/min (90-130); Glucose 104 mg/dL (65-115); Osmolality Calculated 285 mOsm/kg (285-295); Sodium 138 mmol/L (136-145)
[2021-09-17 02:39] LABS: Potassium 2.8 mmol/L (3.5-5.1)
--- NOTE | 2021-09-17 02:44 | PC.NURSE ---
Patient colostomy leaking. Unable to locate orders to change. Spoke to charge nurse, Marleny. Marleny instructed me to change the appliance and not to wake up Dr. Waldrop.
[2021-09-17 03:06] LABS: Prolactin 6.94 ng/mL (4.0-15.2)
[2021-09-17] MEDS: vancomycin 1,000 MG in sodium chloride 0.9% 250 ML 250 MG IV (03:36)
[2021-09-17] MEDS: potassium chloride ER 20 mEq Tablet 80 MEQ PO (03:36)
--- NOTE | 2021-09-17 04:06 | PC.NURSE ---
Colostomy appliance and bag changed per charge nurse, Marleny, instructions. Patient tolerated well. Stoma beefy red and intact. Skin surrounding stoma intact without signs of breakdown.
[2021-09-17] MEDS: heparin 5,000 unit/mL INJ 1 mL 5000 UNIT SUBCUT ×2 (05:02→17:20)
--- NOTE | 2021-09-17 08:20 | P.CONIM_ITS ---
Providers/Reason For Consult Consulting Physician/Specialty*: Kathy Irwin MD, Infectious Disease Reason for Consult*: persisting leukocytosis, empiric antifungal therapy, duration and choice of antifungal Attending Physician: Ty Sun MD History of Present Illness History of Present Illness Camron Pantoja is a 66 year old male with a past medical history of recurrent episodes of diverticulitis, did not follow-up with outpatient colonoscopy, recent admission on September 03, 2021 for abdominal pain and found to have a distended colon with prominent wall thickening in the distal sigmoid/rectosigmoid colon school admissions representative of colitis. He also had urinary retention, 800 cc of urine was obtained after Morrison placement. He was treated conservatively with IV piperacillin tazobactam, started on a clear liquid diet the next day, discharged with recommendations to continue a 14-day course of ciprofloxacin and Flagyl. It appears patient requested to be discharged home. He returned to the emergency room on September 09, 2021 with worsening abdominal pain and on this visit found to have abnormal appearance of the distal sigmoid extending into the rectum over a length of 9.4 cm with diffuse wall thickening narrowing of the lumen and findings suspicious for pneumatosis with suspicion for ischemic disease. Marked distention of the colon had progressed. He then underwent ex lap on September 09, found to have extensively scarred rectosigmoid colon, severely inflamed adhered pelvis, underwent Mccloud's procedure with colostomy formation and incidental appendectomy. Surgery was complicated by left ureteric injury, uereter appeared to be involved in pelvic inflammatory change, for which he is s/p ureteroneocystotomy with psoas hitch and left ureteral stent placement. Path negative for malugnancy, shows diverticulosis with acute diverticulitis, ischemic colitis , single benign lymph node . Abdominal drains have serosanginous output, improving after both procedures, started po intake slowly on 09/10. Tolerating full liquid diet by 09/14, mech soft diet on 09/15. Drain cr was checked due to excess output, consistent with serum, not urine (cr 0.4). Planned for Morrison catheter out about 2 weeks postop after cystogram, ureteral stent to be removed in clinic about 6 weeks postop. Hospital course c/b hypoxemia with episodic desaturation 79-80% off supplemental 02. Has a h/o COPD reportedly. CT chest/abdomen repeated on 12/15 due to persisting leukocytosis with non spf esophagitis, emphysema, consolidation LLL, Diffuse dilatation of the small bowel with air-fluid levels, consistent with small bowel obstruction. Obstruction is secondary to incarcerated right inguinal hernia. No evidence of small bowel perforation. diffuse mural thickening throughout the remaining colon, consistent with nonspecific colitis. This is new when compared to 09/09/2021. Discussed above CT findings with surgery- no clinical evidence of strangulated hernia, bowel loops are easily reducible, tolerating diet well, passing flatus and feces, abdominal drain removed, no signs of post op wound infection. Colonic wall changes may be school admissions representative of bowel wall edema given overall anasarca. Hypoalbunimeia additionally noted at 2.3g/dl. Abx history: Imipenem 09/10-current , Flagyl (09/09-09/13) , vancomycin (09/09- 09/14), ,caspofungin 09/15- leukocytosis trend 43 (09/09) >>33K >> 30K (09/12) >> 27.8 (09/15)>> 24K Tmax 100F on 09/13, afebrile since then Review of Systems General: Reports: 10 or more systems reviewed and unremarkable except in HPI and below Const: Denies: fever(s), chills or body aches Eyes: Denies: change in vision, blurry vision or photophobia ENMT: Reports: hoarseness; Denies: throat pain, enlarged tonsils, odynophagia or nasal congestion Card: Denies: chest pain, palpitations, irregular heart rhythm, edema, swelling of feet/ankles, lightheadedness, pre-syncope, dyspnea on exertion or orthopnea Resp: Denies: dyspnea, productive cough, non-productive cough, wheezing, stridor, pain on inspiration, change in phlegm color, hemoptysis or chest congestion GI: Denies: abdominal pain, nausea, vomiting, hematemesis, coffee ground emesis, dysphagia, heartburn, diarrhea, constipation, GI cramping, change in stool character, hematochezia or melena : Denies: flank pain, dysuria, urinary frequency, urinary urgency, urinary hesitancy or hematuria Musc: Denies: neck pain, back pain, extremity pain, joint swelling, joint warmth or deformity Neuro: Denies: headache(s), numbness in extremities, weakness in extremities, sensory changes, difficulty walking, frequent falls, dizziness, vertigo, behavioral changes, Slurred speech present or seizure-like activity Psych: Denies: anxiety, depression, suicidal ideation or homicidal ideation Endo: Denies: polyuria, polydipsia, tired all the time, cold intolerance or hot flashes David/Lymph: Denies: easy bruising or easy bleeding Meds/Allergies Home Medications and Allergies Home Medications Medication Instructions Recorded Confirmed Last Taken Type sildenafil 50 mg tablet 50 mg PO DAILY PRN #10 tab 12/16/20 09/09/21 Unknown Rx cyclobenzaprine 10 mg PO BEDTIME PRN 09/03/21 09/09/21 Unknown History ondansetron HCl 4 mg PO TID PRN 09/03/21 09/09/21 Unknown History acetaminophen [Tylenol Ex Str 1,000 mg PO QPM 09/09/21 09/09/21 09/08/21 14:00 History Rapid Release] ciprofloxacin HCl 500 mg PO Q12H 09/09/21 09/09/21 09/08/21 History ibuprofen 800 mg PO DAILY 09/09/21 09/09/21 09/07/21 History metronidazole [Flagyl] 500 mg PO Q8H 09/09/21 09/09/21 09/08/21 History nicotine 1 patch TRANSDERMAL DAILY 09/09/21 09/09/21 09/09/21 07:30 History tamsulosin 0.4 mg PO DAILY@12 09/09/21 09/09/21 09/08/21 12:00 History Allergies Allergy/AdvReac Type Severity Reaction Status Date / Time No Known Allergies Allergy Verified 09/09/21 10:48 Current Medications Current Medications Generic Name Dose Route Start Last Admin Trade Name Freq PRN Reason Stop Dose Admin Acetaminophen 650 mg 09/13/21 22:32 09/16/21 18:22 Acetaminophen 325 Mg Tablet PO 650 mg Q6H PRN Administration MILD PAIN Albuterol/Ipratropium 3 ml 09/15/21 11:49 09/16/21 08:03 Ipratropium-Albuterol 3 Ml Neb INHALATION 3 ml Q6H PRN Administration SHORTNESS OF BREATH Budesonide 0.5 mg 09/12/21 20:00 09/16/21 21:21 Budesonide 0.5 Mg/2 Ml Neb INHALATION 0.5 mg BID.RESPIRATORY YOGESH Administration Famotidine 20 mg 09/13/21 18:00 09/16/21 17:49 Famotidine 20 Mg Tablet PO 20 mg BID YOGESH Administration Heparin Sodium (Porcine) 5,000 unit 09/10/21 06:00 09/17/21 05:02 Heparin 5,000 Unit/Ml Inj 1 Ml SUBCUT 5,000 unit Q12H YOGESH Administration Imipenem/Cilastatin Sodium 500 100 mls @ 200 mls/hr 09/10/21 16:30 09/17/21 05:57 mg/ Sodium Chloride IV Infused Q6H YOGESH Infusion Protocol Vancomycin HCl 1,000 mg/ 250 mls @ 250 mls/hr 09/14/21 20:00 09/17/21 04:46 Sodium Chloride IV Infused Q8H YOGESH Infusion Caspofungin 50 mg/ Sodium 250 mls @ 250 mls/hr 09/15/21 21:00 09/16/21 22:48 Chloride IV Infused Q24H YOGESH Infusion Nicotine 1 patch 09/11/21 09:00 09/16/21 07:35 Nicotine 21 Mg Patch TRANSDERMA Not Given DAILY YOGESH Ondansetron HCl 4 mg 09/09/21 19:16 09/12/21 23:00 Ondansetron 2 Mg/Ml Sdv 2 Ml IVP 4 mg Q4H PRN Administration NAUSEA AND VOMITING Tamsulosin HCl 0.4 mg 09/10/21 12:00 09/16/21 11:23 Tamsulosin 0.4 Mg Capsule PO 0.4 mg DAILY@12 YOGESH Administration PFSH Acute PFSH: Medical History Diverticulitis Erectile dysfunction Smoker Surgical History History of bladder surgery History of inguinal hernia repair Left Family History Father Smoker Denies family history of Diabetes Cancer Hypertension Social History Smoking and tobacco status: current every day smoker cigarettes Packs smoked per day: 1 Second hand smoke exposure: No Smoking risk assessment/counseling performed?: No Alcohol intake: never Desire information about alcohol rehabilitation?: No Counseling given: No Desire information about substance/drug rehabilitation?: No Counseling given: No Caregiver/support person: No Lives independently: Yes Household members: none Housing: House Marital status: Number of children: 3 service: No Current occupational status: employed History of recent travel: No Current gender identity: Male Vitals/I&O/Wt Last Vital Signs Temp 98.0 F 09/17/21 07:22 Pulse 101 H 09/17/21 07:22 Resp 16 09/17/21 07:22 BP 143/79 09/17/21 07:22 Pulse Ox 91 09/17/21 07:22 09/16/21 09/17/21 09/17/21 22:59 06:59 14:59 Intake Total 1515 / 2090 1130 / 3220 Output Total 1355 / 2455 2625 / 5080 Balance 160 / -365 -1495 / -1860 Weight last 48 hrs Weight 72.121 kg Weight 72.529 kg Physical Exam Urinary Catheter Management^: Morrison: Cath Placed During This Visit: yes Urinary Catheter Date of Insertion: 09/09/21 Urinary Catheter Time of Insertion: 12:41 Data Micro: Micro: 09/14: blood cx: negative to date 09/09: blood cx : negative to date 09/09: urine cx : no growth Other Data: Other data: HISTOPATHOLOGY REPORTAccession No. [id number] Status: Signed Out Final Diagnosis A. Vermiform appendix, appendectomy: ?Benign segment of appendix with reactive follicular hyperplasia. ?No evidence of acute appendicitis or malignancy. B. Colon, sigmoid colon , sigmoid colectomy, suture gómez proximal colon ?Diverticulosis with acute diverticulitis. ?Ischemic colitis. ?Single benign lymph node (0/1). ?All margins are uninvolved and negative. ?No tumor nodules, polyps or malignancy identified. C. Colon, suture line , excision: ?Benign colonic segment with minimal histologic changes. ?No malignancy identified. 09/09 Peripheral smear findings with regards to requisition [id number]. Final impression: ?Leukocytosis with left shift and absolute neutrophilia and monocytosis. ?Neutrophils with toxic granulations. ?Myelocytes and metamyelocytes identified. ?Red blood cell count. ?Acanthocytes identified. ?Thrombocytosis. Specimen adequacy: Satisfactory; excellent smears. Comment: The above peripheral smear findings are consistent with septic shock. A hematolymphoid malignancy is less likely. However, if the WBC count continues to increase, lymphoma/leukemia studies would be required doing a flow cytometry. Exam: CT Chest With Contrast; Diagnostic Exam date and time: 09/14/2021 5:26 PM Lungs: Severe centrilobular emphysema throughout both lungs. Severe atelectasis versus consolidation noted in the left lower lobe. Mild atelectasis versus consolidation in the right lower lobe. CT/CT chest abd pel w con* IMPRESSION: 1. Mild mural thickening of the distal thoracic esophagus, suggesting nonspecific esophagitis. 2. Severe centrilobular emphysema throughout both lungs. 3. Severe atelectasis versus consolidation noted in the left lower lobe. Mild atelectasis versus consolidation in the right lower lobe. This has worsened when compared to 09/09/2021, and may indicate bilateral lower lobe pneumonia. IMPRESSION: 1. Diffuse dilatation of the small bowel with air-fluid levels, consistent with small bowel obstruction. Obstruction is secondary to incarcerated right inguinal hernia. No evidence of small bowel perforation. 2. Postop change of the distal colon. Status post sigmoid colectomy. Left lower quadrant colostomy noted. 3. There is diffuse mural thickening throughout the remaining colon, consistent with nonspecific colitis. This is new when compared to 09/09/2021. No pneumatosis of the colon identified. 4. Biliary sludge versus noncalcified stones in the gallbladder. No changes of acute cholecystitis noted. Exam date and time: 09/12/2021 8:44 AM XR/XR chest 1V portable [id number] IMPRESSION: 1. Coarse chronic pulmonary markings. 2. Nonspecific bibasilar opacities, favoring atelectasis or pneumonia. Date of Service: 09/09/21 Procedure(s): CT abdomen pelvis w con* [id number] CT/CT abdomen pelvis w con* [id number] IMPRESSION: 1. Abnormal appearance of the distal sigmoid extending into the rectum over a length of 9.4 cm. There is diffuse wall thickening with narrowing of the lumen and findings suspicious for pneumatosis. Highly suspicious for ischemic disease. Underlying neoplasm not completely excluded. 2. Marked fluid and air distention of the small bowel. 3. Marked gaseous distention throughout the colon which has progressed. There is a change in caliber in the distal sigmoid in the area suspicious for ischemia. 4. Patient has a known RIGHT inguinal hernia containing a small bowel loop. There is mild fluid distention of this small bowel loop but no transition point. Less small bowel contained within the scrotum as compared to 09/03/2021. 5. Small LEFT pleural effusion and LEFT basilar atelectasis. 6. No definite free air identified. CT/CT abdomen pelvis w con* [id number] IMPRESSION: 1. Nonspecific mild bibasilar opacities left greater than right, favoring atelectasis or pneumonia. 2. Dilated infrarenal aorta measured at 2.4 cm. 3. Small bowel contained within a nonobstructive right inguinal hernia. 4. Distended colon with prominent folds/wall thickening seen in the distal sigmoid/rectosigmoid colon with a few small diverticuli detected. Findings felt to represent a colitis. COVID PCR: negative on 09/12 A&P Assessment and plan (1) Leukocytosis: Status: Acute (2) COPD (chronic obstructive pulmonary disease): Status: Acute (3) Ischemic bowel syndrome: Status: Acute (4) Status post Jorge procedure: Status: Acute (5) Intraoperative ureteral injury: Status: Acute (6) Diverticulitis: Status: Acute (7) Left lower lobe pneumonia: Status: Acute Additional A&P Information Mr. Pantoja is a 66-year-old male with past medical history as summarized above in HPI. Briefly admitted for worsening colitis on 09 09, leading up to pneumatosis coli, now status post Jorge procedure, hospital course complicated by left ureteric injury intraoperatively, status post psoas hitch and ureteroneocystostomy, and a left lower lobe pneumonia. Current active issues include persisting leukocytosis, though trending down from 46,000 initially upon admission now at 25,000. He has received multiple IV antibiotics during the course of admission including imipenem, IV Flagyl, IV vancomycin, appropriately covering for both intra- abdominal and respiratory infections. Currently patient is showing clinical improvement. He is able to tolerate a p.o. intake, diet has been advancing normally. Colostomy is with good stool output. CT of the abdomen repeated on 1214 without any intra-abdominal abscesses. Discussed findings of possible strangulated hernia with surgery, per discussion with Dr. Kebede, there is no current clinical evidence of the same. There is noted to be some wound dehiscence along the staple lines, however no gross signs of surrounding cellulitis. No subcutaneous abscesses noted, no kerrie discharge. abdominal LUIS EDUARDO drain has been removed, clear serosanginous output prior to removal. No evidence of urine leak. Patient does remain at a higher risk of urine infections given stents and indwelling Morrison Patient has been afebrile, clinically feels well, non toxic appearing on exam He was additionally started on empiric IV caspofungin due to persisting leukocytosis. There does not appear to be any evidence of persisting untreated infection at this time. Persisting leukocytosis may be from recent stressors, however reassuring that it is trending down and patient clinically improving. May reflect a time lag to correction of labs. Given that patient is overall showing signs of significant clinical improvement, leukocytosis trending down since admission, no fever, adequately treated for both pneumonia and intra-abdominal sepsis, at this point can discontinue IV antibiotics and switch to oral antibiotics. Would recommend treating for up to 2 weeks after surgery (09/09-09/23). Or until next outpatient follow-up whole Morrison remains in place as this may be delayed due to the holidays. Can transition today to p.o. Augmentin 875 mg twice daily. Empiric coverage with IV caspofungin may additionally be transitioned to p.o. fluconazole 200 mg p.o. daily. As such currently no evidence of fungal sepsis. Check C. difficile PCR given initial presentation with colitis, pneumatosis, leukocytosis, most recent CT with some bowel wall edema which may be school admissions representative of a generalized anasarca however possibility of C. difficile cannot be completely excluded. will follow Coding Level of Care Code Acute Process Control Supervisor for [facility] Fwd Diagnoses Leukocytosis D72.829 COPD (chronic obstructive pulmonary disease) J44.9 Ischemic bowel syndrome K55.9 Status post Jorge procedure Z93.3 Intraoperative ureteral injury N99.81 Diverticulitis K57.92 Left lower lobe pneumonia J18.9
[2021-09-17 08:49] LABS: Prealbumin 11.2 mg/dL (20-40)
[2021-09-17 08:49] LABS: Albumin Level 2.3 g/dL (3.5-5.2)
[2021-09-17] MEDS: nicotine 21 mg Patch 1 PATCH TRANSDERMA (09:56)
[2021-09-17] MEDS: famotidine 20 mg Tablet PO ×2 (09:57→17:20)
--- NOTE | 2021-09-17 12:04 | P.PN_ITS ---
Subjective Subjective: Interval history: Positive cdiff White count 25,000 Started p.o. vancomycin LUIS EDUARDO drain removed this morning Advance diet to regular No overnight events Vitals/I&O/Wt Last Vital Signs Temp 98.4 F 09/17/21 11:54 Pulse 109 H 09/17/21 11:54 Resp 16 09/17/21 11:54 BP 129/85 09/17/21 11:54 Pulse Ox 94 09/17/21 11:54 09/16/21 09/17/21 09/17/21 22:59 06:59 14:59 Intake Total 1515 / 2090 1130 / 3220 360 / 360 Output Total 1355 / 2455 2625 / 5080 Balance 160 / -365 -1495 / -1860 360 / 360 Weight last 48 hrs Weight 72.121 kg Weight 72.529 kg Physical Exam Narrative: EXAM NARRATIVE: Patient eating breakfast LUIS EDUARDO drain removed Saturating well on 0.5 L nasal cannula Bilateral breath sound no audible stridor or wheezing Ostomy with adequate output No signs of peritonitis No active nausea or vomiting on eating food Patient in good spirits Nonfocal neuro exam Bilateral lower extremity edema Urinary Catheter Management^: Castañeda: Cath Placed During This Visit: yes Urinary Catheter Date of Insertion: 09/09/21 Urinary Catheter Time of Insertion: 12:41 Data : 09/17/21 01:23 09/17/21 01:23 Micro: Microbiology 09/16/21 23:07 C.difficile Toxin B Gene (PCR) - Final Stool Routine Collection A&P Assessment and plan (1) Leukocytosis: Status: Acute (2) COPD (chronic obstructive pulmonary disease): Status: Acute (3) HTN (hypertension): Status: Acute (4) Ischemic bowel syndrome: Status: Acute (5) Sepsis: Status: Acute (6) Status post Jorge procedure: Status: Acute (7) Colostomy in place: Status: Acute (8) Status post exploratory laparotomy: Status: Acute (9) Intraoperative ureteral injury: Status: Acute (10) Diverticulitis: Status: Acute Additional A&P Information C. difficile positive: Started p.o. vancomycin today need 10 days of p.o. vancomycin Persistent leukocytosis: Appreciate ID recommendations Antibiotics deescalated to p.o. Augmentin and p.o. antifungal, to finish regimen until 09/30, has follow-up appointment with ID in October Persistent leukocytosis most likely due to underlying C. difficile colitis, fungal serum test results are pending COPD without acute exacerbation doing well on 0.5 L nasal cannula Bilateral pleural effusion left greater than right Ureteral injury: Outpatient follow-up with Dr. Wang Advance diet to regular DVT prophylaxis on board Full code Plan to discharge him over the weekend to home with home health services Attestations Medical Necessity Statement*: Continue medical management Time Spent in Patient Care: 16 - 35 minutes Coding Level of Care Code Acute Zipper Setter Chainstitch for Chg Fwd Diagnoses Leukocytosis D72.829 COPD (chronic obstructive pulmonary disease) J44.9 HTN (hypertension) I10 Ischemic bowel syndrome K55.9 Sepsis A41.9 Status post Jorge procedure Z93.[address] Z93.3 Status post exploratory laparotomy Z98.890 Intraoperative ureteral injury N99.81 Diverticulitis K57.92
--- NOTE | 2021-09-17 14:35 | PC.CHAP ---
Pastoral Care Encounter/Spiritual Assessment Type of Contact [] Declined dietary services director visit [] Patient/Family/Request visit [] Outpatient visit [xx] Follow-up visit [] Physician referral [] Code/Alert [xx] Routine visit [] Staff referral [] Actively dying [] Patient sleeping [] Family support [] [] Out of room [] Palliative care [] [] Receiving care in room [] Pre-surgical visit [] Trauma [xx] Long length of stay [] ICU visit [] Other: Relational/Emotional Strength [xx] Patient feels connected with others/family/visitors/staff [] Distress [] Loneliness/isolation [] Abandonment Spirituality of Patient [xx] Person of Lisa [] Attends Mormon of their Lisa [xx] Believes in Prayer [xx] Reads Bible or Sikh materials [] There are Spiritual issues to be addressed Research Archaeologist Interventions [xx] Prayer [xx] Active listening [xx] Non-anxious presence [] Spiritual/emotional support [] Crisis/trauma care [] Spiritual counseling [] Bereavement support [] Provided bereavement packet [xx] Provided Bible/devotional materials [] Provided toy/stuffed animal, coloring book to patient or family member [] Provided Communion [] Anointing/[place] [] Salvation [xx] Completed spiritual assessment [] Other: Impact on Illness or Injury [] Angry [] Fearful [] Anxious [] Often cries [] Exhaustion [] Unable to work [] Unable to attend lutheran [] Unable to walk/stand [] Unable to read [] Unable to drive [] Unable to eat/drink [] Unable to sleep [] Unable to be with family [] Patient intubated [] Other: Summary Patient feeling much better. present to keep him company. Time spent with patient 5 minutes
[2021-09-17] MEDS: acetaminophen 325 mg Tablet 650 MG PO (16:05)
[2021-09-17] MEDS: magnesium oxide 400 mg tablet PO (16:06)
[2021-09-17] MEDS: tamsulosin 0.4 mg Capsule PO (16:06)
[2021-09-17] MEDS: amoxicillin-clav 875-125 mg Tablet 1 TAB PO (17:20)
[2021-09-18] VITALS (9 sets, daily range): BP systolic 104–157; BP diastolic 63–84; PULSE 78–101; RESP 16–19; TEMP 36.6–37.3; O2SAT 93–97
[2021-09-18 04:37] LABS: Basophils # 0.1 10^3/uL (0.0-0.1); Basophils % 0.3 %; Eosinophils # 0.1 10^3/uL (0.0-0.8); Eosinophils % 0.2 %; Hematocrit 37.7 % (42.0-52.0); Hemoglobin 12.8 g/dL (11.7-16.6); Lymphocytes # 1.5 10^3/uL (0.8-4.8); Lymphocytes % 4.4 %; Mean Corpuscular Hemoglobin 31.8 pg (28.0-34.0); Mean Corpuscular Volume 93.5 fl (80-94); Mean Platelet Volume 9.4 fL (7.4-10.4); Monocytes # 2.2 10^3/uL (0.2-0.9); Monocytes % 6.5 %; Neutrophils % 87.7 %; Nucleated Red Blood Cells % 0 %; Platelet Count 650 10^3/cmm (130-400); Red Blood Count 4.03 10^6/uL (4.1-5.3); Red Cell Distribution Width 12.9 % (12.1-15.1)
[2021-09-18 04:57] LABS: Lactate (Lactic Acid level) 0.7 mmol/L (0.5-2.2)
[2021-09-18 04:58] LABS: Anion Gap 16.1 (5-19); Blood Urea Nitrogen 13 mg/dL (8-23); Calcium 7.3 mg/dL (8.5-10.5); Carbon Dioxide 19 mmol/L (22-29); Chloride 104 mmol/L (98-107); Glomerular Filtration Rate 215.2 mL/min (90-130); Glucose 103 mg/dL (65-115); Magnesium 1.8 mg/dL (1.7-2.3); Osmolality Calculated 282 mOsm/kg (285-295); Potassium 3.1 mmol/L (3.5-5.1); Sodium 136 mmol/L (136-145)
[2021-09-18] MEDS: heparin 5,000 unit/mL INJ 1 mL 5000 UNIT SUBCUT ×2 (05:02→16:55)
[2021-09-18 05:45] LABS: White Blood Count 33.1 10^3/uL (4.0-10.0)
--- NOTE | 2021-09-18 05:50 | PC.NURSE ---
Called covering hosp, Dr Irwin, to report critical WBC of 33.1. She acknowledged lab result. No new orders at this time. I asked if she would like me to call the patients surgeon and she said No. It's fine. I noted to her that the patients WBC has been elevated consistently but does appear to be trending up.
--- NOTE | 2021-09-18 07:22 | P.PN_ITS ---
Subjective Subjective: Interval history: Patient overall feels well and tolerating p.o. intake. Patient was seen and evaluated on September 17, 2021 around 7 AM.This note reflects that clinical encounter Medications: Reviewed: Yes Vitals/I&O/Wt Last Vital Signs Temp 97.9 F 09/18/21 04:00 Pulse 96 09/18/21 04:00 Resp 17 09/18/21 04:00 BP 143/81 09/18/21 04:00 Pulse Ox 93 09/18/21 04:00 09/17/21 09/18/21 09/18/21 22:59 06:59 14:59 Intake Total 600 / 1200 360 / 1560 Output Total 900 / 1450 Balance 600 / 650 -540 / 110 Weight last 48 hrs Weight 159 lb Weight 159 lb Physical Exam Narrative: EXAM NARRATIVE: Patient is conscious alert oriented X3 Continues to be anxious and eager to go home as soon as possible BMI 21 Head and neck examination PERRLA no masses no cervical lymphadenopathy no jaundice Abdomen nontender except at the midline incision,mildly distended soft no organomegaly guarding or rigidity/no signs of peritonitis, packing in place. Colostomy is pink and patent with residual loose stool and gas in the stoma bag Wound bed is clean with out evidence of surgical site infection. Right lower quadrant drain in place with serous output,straw colored likely ascitic fluid Right groin reducible hernia stable exam Castañeda catheter in place with clear urine Bilateral lower extremities soft pitting edema which is part of the generalized anasarca likely due to hypoalbuminemia and malnutrition Urinary Catheter Management^: Castañeda: Cath Placed During This Visit: yes Urinary Catheter Date of Insertion: 09/09/21 Urinary Catheter Time of Insertion: 12:41 Data : 09/18/21 04:18 09/18/21 04:18 Micro: Microbiology 09/16/21 23:07 C.difficile Toxin B Gene (PCR) - Final Stool Routine Collection A&P Assessment and plan (1) Status post Jorge procedure: Assessment 66 years old gentleman status post exploratory laparotomy, Mccloud's procedure(sigmoid colon resection) with reimplantation of the left ureter status post inadvertent injury during the resection. 09/09/2021 Plan Regular diet plus protein shakes are given with each meal Continue incentive spirometer every hour Continue wound care in the form of daily packing of the wound using wet-to-dry 1 inch Nu Gauze followed by ABDs and the secondary dressing can be changed as needed Electrolyte replacement per hospitalist service Ostomy care and teaching DC drain which was done by me bedside Encourage ambulation Continue pharmacologic DVT prophylaxis From surgical standpoint of view there is no indication for further antibiotics, I will defer further recommendations With that regard to urology, hospitalist [facility] Encourage ambulation. Return to surgery office in 2 weeks And can DC skin dayton 10 days after surgery and application of Steri-Strips Patient will benefit down the road from elective open groin hernia repair with mesh placement after appropriate convalescent. And recovery from the exploratory laparotomy unless it becomes an urgent matter. Follow-up with Dr. Wang as scheduled Assurance and education All questions have been answered and all concerns have been addressed to patient's satisfaction. Status: Acute Attestations Medical Necessity Statement*: Per Hospitalist service Time Spent in Patient Care: 16 - 35 minutes (>than 50% of time spent in counselling and/or direct pt care on unit) . Coding Level of Care Code Acute Mechanical Supervisor for Chg Fwd Diagnoses Status post Jorge procedure Z93.3
[2021-09-18] MEDS: famotidine 20 mg Tablet PO ×2 (10:47→16:54)
[2021-09-18] MEDS: amoxicillin-clav 875-125 mg Tablet 1 TAB PO ×2 (10:47→16:54)
[2021-09-18] MEDS: fluconazole 100 mg Tablet 200 MG PO (10:47)
[2021-09-18] MEDS: magnesium oxide 400 mg tablet PO ×2 (10:47→16:54)
--- NOTE | 2021-09-18 10:57 | PC.SOCIAL ---
IMM update IMM updated with patient and family at bedside. Copy Pg 2 provided. Verbalized an understanding. Initialled, dated, timed, and placed in chart.
--- NOTE | 2021-09-18 12:24 | PM.PN ---
Subjective Subjective: Interval history: Today leukocytosis has worsened, his antibiotics and antifungals were deescalated yesterday to p.o. regimen this morning requested general surgery to reevaluate his surgical wound there is no active drainage, no dehiscence my concern was regarding the gap between the 2 edges of the skin, it was dressed and evaluated by Dr. Reagan, I also spoke with Dr. Leung. Planning to add IV metronidazole Also spoke with Dr. Irwin who recommended continuing p.o. antimicrobial for now and monitor over the weekend, patient clinically has made good progress Vitals/I&O/Wt Last Vital Signs Temp 98.2 F 09/18/21 11:58 Pulse 78 09/18/21 11:58 Resp 16 09/18/21 11:58 BP 104/69 09/18/21 11:58 Pulse Ox 97 09/18/21 11:58 09/17/21 09/18/21 09/18/21 22:59 06:59 14:59 Intake Total 600 / 1200 360 / 1560 240 / 240 Output Total 900 / 1450 Balance 600 / 650 -540 / 110 240 / 240 Weight last 48 hrs Weight 72.121 kg Weight 72.121 kg Physical Exam Narrative: EXAM NARRATIVE: Patient was sitting in his bed No active discomfort Surgical wound without any active drainage no signs of cellulitis it was evaluated by general surgery today Dressing done at the bedside Castañeda catheter draining concentrated urine EOMI, PERRLA Nonfocal neuro exam Patient is very eager to return home Nonfocal neuro exam Saturating well on room air today No active respiratory distress Urinary Catheter Management^: Castañeda: Cath Placed During This Visit: yes Urinary Catheter Date of Insertion: 09/09/21 Urinary Catheter Time of Insertion: 12:41 Data : 09/18/21 04:18 09/18/21 04:18 Micro: Microbiology 09/18/21 11:53 Blood Culture - Preliminary Blood SPECIMEN COLLECTED 09/18/21 11:53 Blood Culture - Preliminary Blood SPECIMEN COLLECTED 09/16/21 23:15 Urine Culture - Preliminary Urine,Clean Catch 09/16/21 23:07 C.difficile Toxin B Gene (PCR) - Final Stool Routine Collection A&P Assessment and plan (1) Leukocytosis: Status: Acute (2) COPD (chronic obstructive pulmonary disease): Status: Acute (3) Ischemic bowel syndrome: Status: Acute (4) Sepsis: Status: Acute (5) Status post Jorge procedure: Status: Acute (6) Colostomy in place: Status: Acute (7) Status post exploratory laparotomy: Status: Acute (8) Intraoperative ureteral injury: Status: Acute (9) Diverticulitis: Status: Acute (10) Colitis due to Clostridium difficile: Status: Acute Additional A&P Information status post exploratory laparotomy Persistent leukocytosis Colitis secondary to C. difficile ID recommendations appreciated Due to worsening of leukocytosis today I will go ahead and add IV metronidazole and increase vancomycin dose to 250 mg, Dr. Irwin recommended watching him on p.o. regimen for now Surgical wound to be looked at by the general surgeon today, Dr. Leung and Dr. Reagan notified, no signs of infection or drainage around this wound Repeat blood cultures Malnourished, low albumin: Third spacing: We will give 1 dose of albumin today COPD without exacerbation today doing well on room air Full code Regular diet with supplemental diet, he is tolerating his diet very well dvt ppx:heparin Attestations Medical Necessity Statement*: dc next week Time Spent in Patient Care: 16 - 35 minutes Coding Level of Care Code Acute Manager Real Estate for Chg Fwd Diagnoses Leukocytosis D72.829 COPD (chronic obstructive pulmonary disease) J44.9 Ischemic bowel syndrome K55.9 Sepsis A41.9 Status post Jorge procedure Z93.[address] Z93.3 Status post exploratory laparotomy Z98.890 Intraoperative ureteral injury N99.81 Diverticulitis K57.92 Colitis due to Clostridium difficile A04.72
[2021-09-18] MEDS: tamsulosin 0.4 mg Capsule PO (14:16)
[2021-09-18] MEDS: metroNIDAZOLE IV 500 MG/100 ML PREMIX 100 MG IV ×2 (14:35→20:26)
[2021-09-18] MEDS: acetaminophen 325 mg Tablet 650 MG PO (15:06)
[2021-09-18] MEDS: albumin 12.5 GM/250 ML VIAL IV (16:52)
[2021-09-18] MEDS: ALPRAZolam 0.5 mg Tablet 0.25 MG PO (22:21)
--- NOTE | 2021-09-18 22:57 | PC.NURSE ---
[address] Irwin per patient request for sleep aid. Recieved order for 1 time dose of Xanax 0.25mg.
[2021-09-19 03:08] LABS: Basophils # 0.1 10^3/uL (0.0-0.1); Basophils % 0.3 %; Eosinophils # 0.1 10^3/uL (0.0-0.8); Eosinophils % 0.4 %; Hematocrit 33.4 % (42.0-52.0); Hemoglobin 11.2 g/dL (11.7-16.6); Lymphocytes # 1.2 10^3/uL (0.8-4.8); Lymphocytes % 5.1 %; Mean Corpuscular HGB Conc 33.5 g/dL (30.0-36.0); Mean Corpuscular Hemoglobin 31.5 pg (28.0-34.0); Mean Corpuscular Volume 94.1 fl (80-94); Mean Platelet Volume 9.6 fL (7.4-10.4); Monocytes # 1.8 10^3/uL (0.2-0.9); Monocytes % 7.4 %; Neutrophils # 20.55 10^3/uL (1.8-7.7); Neutrophils % 86.1 %; Nucleated Red Blood Cells % 0 %; Platelet Count 564 10^3/cmm (130-400); Red Blood Count 3.55 10^6/uL (4.1-5.3); Red Cell Distribution Width 12.9 % (12.1-15.1); White Blood Count 23.9 10^3/uL (4.0-10.0)
[2021-09-19 03:39] LABS: Lactate (Lactic Acid level) 0.7 mmol/L (0.5-2.2)
[2021-09-19 03:41] LABS: Anion Gap 12.6 (5-19); Blood Urea Nitrogen 12 mg/dL (8-23); Calcium 7.1 mg/dL (8.5-10.5); Carbon Dioxide 23 mmol/L (22-29); Chloride 104 mmol/L (98-107); Glomerular Filtration Rate 215.2 mL/min (90-130); Glucose 95 mg/dL (65-115); Osmolality Calculated 284 mOsm/kg (285-295); Sodium 137 mmol/L (136-145)
[2021-09-19 03:55] LABS: Potassium 2.6 mmol/L (3.5-5.1)
--- NOTE | 2021-09-19 03:59 | PC.NURSE ---
Critical potassium of 2.[address] Irwin. New order 80mg K-Antonio with lidocaine x's 1.
[2021-09-19 04:00] VITALS: BP 134/78; PULSE 96; RESP 19; TEMP 37; O2SAT 96
[2021-09-19] MEDS: lidocaine 1% 5 ML in potassium chloride premix 100 ML 25 ML IV ×2 (04:40→08:51)
[2021-09-19] MEDS: metroNIDAZOLE IV 500 MG/100 ML PREMIX 100 MG IV ×3 (04:41→20:07)
[2021-09-19] MEDS: heparin 5,000 unit/mL INJ 1 mL 5000 UNIT SUBCUT ×2 (05:03→17:27)
[2021-09-19 07:36] VITALS: BP 117/63; PULSE 97; RESP 15; TEMP 36.4; O2SAT 95
[2021-09-19] MEDS: fluconazole 100 mg Tablet 400 MG PO (08:18)
[2021-09-19] MEDS: amoxicillin-clav 875-125 mg Tablet 1 TAB PO (08:18)
[2021-09-19] MEDS: magnesium oxide 400 mg tablet PO ×2 (08:18→17:27)
[2021-09-19] MEDS: famotidine 20 mg Tablet PO ×2 (08:19→17:27)
[2021-09-19 10:03] LABS: Magnesium 1.7 mg/dL (1.7-2.3)
--- NOTE | 2021-09-19 10:08 | P.PN_ITS ---
Subjective Subjective: Interval history: Proved today, afebrile, cultures negative Plan to discontinue Augmentin We will continue antifungal and p.o. vancomycin at the time of discharge, continue IV metronidazole, check magnesium level, potassium repleted Vitals/I&O/Wt Last Vital Signs Temp 97.6 F 09/19/21 07:36 Pulse 97 09/19/21 07:36 Resp 15 09/19/21 07:36 BP 117/63 09/19/21 07:36 Pulse Ox 95 09/19/21 07:36 09/18/21 09/19/21 09/19/21 22:59 06:59 14:59 Intake Total 1170 / 1410 540 / 1950 345 / 345 Output Total 1400 / 1400 1375 / 2775 300 / 300 Balance -230 / 10 -835 / -825 45 / 45 Weight last 48 hrs Weight 68.447 kg Weight 72.121 kg Physical Exam Narrative: EXAM NARRATIVE: Patient eating breakfast On room air EOMI, PERRLA In good spirits Abdominal binder in place Castañeda catheter draining yellow-colored urine Edema of lower extremities Third spacing EOMI, PERRLA nonfocal neuro exam Urinary Catheter Management^: Castañeda: Cath Placed During This Visit: yes Urinary Catheter Date of Insertion: 09/09/21 Urinary Catheter Time of Insertion: 12:41 Data : 09/19/21 02:37 09/19/21 02:37 Micro: Microbiology 09/18/21 11:53 Blood Culture - Preliminary Blood SPECIMEN COLLECTED 09/18/21 11:53 Blood Culture - Preliminary Blood SPECIMEN COLLECTED 09/16/21 23:15 Urine Culture - Preliminary Urine,Clean Catch A&P Assessment and plan (1) Colitis due to Clostridium difficile: Status: Acute (2) Leukocytosis: Status: Acute (3) COPD (chronic obstructive pulmonary disease): Status: Acute (4) Ischemic bowel syndrome: Status: Acute (5) Sepsis: Status: Acute (6) Status post Jorge procedure: Status: Acute (7) Colostomy in place: Status: Acute (8) Status post exploratory laparotomy: Status: Acute (9) Diverticulitis: Status: Acute (10) Smoker: Status: Chronic (11) Intraoperative ureteral injury: Status: Acute (12) Pneumatosis intestinalis of large intestine: Status: Resolved Additional A&P Information Persistent leukocytosis improving Discontinue p.o. Augmentin, continue IV metronidazole and p.o. vancomycin along p.o. fluconazole cultures negative to date, afebrile Plan to discharge him tomorrow if clinically stable Potassium repleted, magnesium level check, he is getting p.o. magnesium Doing well on room air DVT prophylaxis on board Regular diet Full code family updated Attestations Medical Necessity Statement*: Discharge on Monday Time Spent in Patient Care: less than 15 minutes Coding Level of Care Code Acute Corrections Nurse for g Fwd Diagnoses Colitis due to Clostridium difficile A04.72 Leukocytosis D72.829 COPD (chronic obstructive pulmonary disease) J44.9 Ischemic bowel syndrome K55.9 Sepsis A41.9 Status post Jorge procedure Z93.[address] Z93.3 Status post exploratory laparotomy Z98.890 Diverticulitis K57.92 Smoker F17.200 Intraoperative ureteral injury N99.81 Pneumatosis intestinalis of large intestine K63.89
--- NOTE | 2021-09-19 10:56 | PM.PN ---
Vitals/I&O/Wt Last Vital Signs Temp 97.6 F 09/19/21 07:36 Pulse 97 09/19/21 07:36 Resp 15 09/19/21 07:36 BP 117/63 09/19/21 07:36 Pulse Ox 95 09/19/21 07:36 09/18/21 09/19/21 09/19/21 22:59 06:59 14:59 Intake Total 1170 / 1410 540 / 1950 397 / 397 Output Total 1400 / 1400 1375 / 2775 300 / 300 Balance -230 / 10 -835 / -825 97 / 97 Weight last 48 hrs Weight 150 lb 14.4 oz Weight 159 lb Physical Exam Urinary Catheter Management^: Castañeda: Cath Placed During This Visit: yes Urinary Catheter Date of Insertion: 09/09/21 Urinary Catheter Time of Insertion: 12:41 Data : 09/19/21 02:37 09/19/21 02:37 Micro: Microbiology 09/16/21 23:15 Urine Culture - Final Urine,Clean Catch 09/18/21 11:53 Blood Culture - Preliminary Blood SPECIMEN COLLECTED 09/18/21 11:53 Blood Culture - Preliminary Blood SPECIMEN COLLECTED A&P Additional A&P Information 66-year-old male who is postop day 10 for exploratory laparotomy, lysis of adhesions, sigmoidectomy, Jorge's pouch, appendectomy and intentional colotomy for colon decompression and pursestring repair with omental patch. Patient was to be discharged yesterday but his white count becky to 30 and he was positive for C. difficile. He is also suffering from continuing hypokalemia likely due to his concomitant hypomagnesemia. His antibiotic regimen has been altered. And his white count is now lower today. He denies any fevers or chills, his abdominal pain is well controlled and he is tolerating a diet. His magnesium remains low at 1.7. 1 g has already been administered this morning, an additional 3 g is ordered by myself. This should improve his potassium as well. He should continue oral vancomycin and metronidazole to treat his C. difficile. I suggest discontinuing the Augmentin as it has been 10 days since his diverticulitis operation. This will also help resolve the C. difficile. I also examined the wound it, is amenable to continued packing. The patient refused the abdominal binder that I had recommended. I continue to recommend to the patient that he does not strain his abdomen to help the wound to heal. If patient remains well and healthy tomorrow he can be discharged then. Attestations Medical Necessity Statement*: Hospital stay necessary to recover from major abdominal operation feels Coding Level of Care Code Acute Branch Sales And Service Representative for Cherri Gasca
[2021-09-19] MEDS: tamsulosin 0.4 mg Capsule PO (11:42)
[2021-09-19 12:00] VITALS: BP 130/82; PULSE 92; RESP 17; TEMP 36.8; O2SAT 94
[2021-09-19] MEDS: magnesium sulfate premix 2 GM/50 ML PIGGYBACK IV (13:01)
[2021-09-19 15:07] VITALS: BP 115/76; PULSE 101; RESP 16; TEMP 36.8; O2SAT 96
[2021-09-19 18:13] LABS: Fungitell 1-3-B Glucan Assay 67 pg/mL; Interpretation INDETERMINATE
[2021-09-19 19:24] LABS: Anion Gap 13.7 (5-19); Blood Urea Nitrogen 10 mg/dL (8-23); Carbon Dioxide 21 mmol/L (22-29); Chloride 103 mmol/L (98-107); Glomerular Filtration Rate 215.2 mL/min (90-130); Glucose 90 mg/dL (65-115); Magnesium 2.2 mg/dL (1.7-2.3); Osmolality Calculated 279 mOsm/kg (285-295); Sodium 135 mmol/L (136-145)
[2021-09-19 19:28] LABS: Potassium 2.7 mmol/L (3.5-5.1)
[2021-09-19 20:00] VITALS: BP 120/78; PULSE 100; RESP 16; TEMP 36.7; O2SAT 97
[2021-09-19] MEDS: potassium chloride premix 100 ML 25 MEQ IV (21:09)
[2021-09-20] VITALS: BP 120/74; PULSE 98; RESP 16; TEMP 36.7; O2SAT 96
[2021-09-20 03:14] LABS: Basophils # 0.1 10^3/uL (0.0-0.1); Basophils % 0.4 %; Eosinophils # 0.1 10^3/uL (0.0-0.8); Eosinophils % 0.4 %; Hematocrit 32.9 % (42.0-52.0); Lymphocytes # 1.2 10^3/uL (0.8-4.8); Mean Corpuscular HGB Conc 33.4 g/dL (30.0-36.0); Mean Corpuscular Hemoglobin 32.1 pg (28.0-34.0); Mean Corpuscular Volume 95.9 fl (80-94); Mean Platelet Volume 9.8 fL (7.4-10.4); Monocytes # 1.6 10^3/uL (0.2-0.9); Neutrophils # 16.89 10^3/uL (1.8-7.7); Neutrophils % 84.5 %; Nucleated Red Blood Cells % 0 %; Platelet Count 555 10^3/cmm (130-400); Red Blood Count 3.43 10^6/uL (4.1-5.3); Red Cell Distribution Width 13.1 % (12.1-15.1)
[2021-09-20 03:39] VITALS: BP 116/70; PULSE 94; RESP 17; TEMP 36.7; O2SAT 94
[2021-09-20 03:40] LABS: Blood Urea Nitrogen 10 mg/dL (8-23); Carbon Dioxide 23 mmol/L (22-29); Chloride 105 mmol/L (98-107); Glomerular Filtration Rate 166.4 mL/min (90-130); Glucose 114 mg/dL (65-115); Osmolality Calculated 284 mOsm/kg (285-295); Sodium 137 mmol/L (136-145)
[2021-09-20] MEDS: heparin 5,000 unit/mL INJ 1 mL 5000 UNIT SUBCUT (05:25)
[2021-09-20] MEDS: metroNIDAZOLE IV 500 MG/100 ML PREMIX 100 MG IV (05:27)
[2021-09-20 07:20] VITALS: BP 121/73; PULSE 94; RESP 16; TEMP 36.7; O2SAT 98
[2021-09-20] MEDS: magnesium oxide 400 mg tablet PO (08:22)
[2021-09-20] MEDS: fluconazole 100 mg Tablet 400 MG PO (08:22)
[2021-09-20] MEDS: famotidine 20 mg Tablet PO (08:22)
[2021-09-20] MEDS: nicotine 21 mg Patch 1 PATCH TRANSDERMA (08:22)
[2021-09-20] MEDS: potassium chloride ER 20 mEq Tablet 40 MEQ PO (08:22)
--- NOTE | 2021-09-20 09:24 | PC.CHAP ---
Pastoral Care Encounter/Spiritual Assessment Type of Contact [] Declined garden consultant visit [] Patient/Family/Request visit [] Outpatient visit [] Follow-up visit [] Physician referral [] Code/Alert [x] Routine visit [] Staff referral [] Actively dying [] Patient sleeping [] Family support [] [] Out of room [] Palliative care [] [] Receiving care in room [] Pre-surgical visit [] Trauma [] Long length of stay [] ICU visit [] Other: Relational/Emotional Strength [x Patient feels connected with others/family/visitors/staff [] Distress [] Loneliness/isolation [] Abandonment Spirituality of Patient [x] Person of Lisa [] Attends Islam of their Lisa [x] Believes in Prayer [] Reads Bible or Adventist materials [] There are Spiritual issues to be addressed Investigations Consultant Interventions [x] Prayer [x] Active listening [x] Non-anxious presence [x] Spiritual/emotional support [] Crisis/trauma care [] Spiritual counseling [] Bereavement support [] Provided bereavement packet [] Provided Bible/devotional materials [] Provided toy/stuffed animal, coloring book to patient or family member [] Provided Communion [] Anointing/[place] [] Salvation [x] Completed spiritual assessment [] Other: Impact on Illness or Injury [] Angry [] Fearful [] Anxious [] Often cries [] Exhaustion [] Unable to work [] Unable to attend episcopalian [] Unable to walk/stand [] Unable to read [] Unable to drive [] Unable to eat/drink [] Unable to sleep [] Unable to be with family [] Patient intubated [] Other: Summary patient doing much better ready to go home Time spent with patient 10 min
[2021-09-20] MEDS: potassium chloride premix 100 ML 25 MEQ IV (09:46)
--- NOTE | 2021-09-20 10:21 | PC.NURSE ---
Patient and visitor at bedside educated on changing ostomy at this time. Supplies reviewed and education given to patient. Patient voices understanding at this time.
--- NOTE | 2021-09-20 10:55 | PC.SOCIAL ---
IMM Update Pg. 2 of IMM updated and explained to patient, who verbalized understanding. Copy provided.
--- NOTE | 2021-09-20 11:00 | P.DS_ITS ---
Discharge Providers Date of Admission: 09/09/21 16:37 Date of Discharge: September 20, 2021 Attending Provider at Admission: Ceasar Leung MD Attending Provider at Discharge: Ty Sun MD Diagnoses at Discharge Discharge Diagnosis (1) Colitis due to Clostridium difficile: Status: Acute (2) Leukocytosis: Status: Acute (3) COPD (chronic obstructive pulmonary disease): Status: Acute (4) Ischemic bowel syndrome: Status: Acute (5) Sepsis: Status: Acute (6) Status post Jorge procedure: Status: Acute (7) Colostomy in place: Status: Acute (8) Status post exploratory laparotomy: Status: Acute (9) Diverticulitis: Status: Acute (10) Smoker: Status: Chronic (11) Intraoperative ureteral injury: Status: Acute Permanent problem details: Right distal ureteral transection due to severe scar tissue involving the ureter associated with bowel inflammatory condition. Right ureteral reimplantation with psoas hitch and right ureteral stent placement performed. (12) Pneumatosis intestinalis of large intestine: Status: Resolved Reason for Visit Reason for Visit: ABD PAIN Hospital Course Hospital Course History of Present Illness by Dr. Aragon : Camron Pantoja is a 66 year old male with history of recurrent episodes of diverticulitis with recent hospitalization back in 09/03/2021 and patient was supposed to be getting an outside colonoscopy as he never had [address] Murillo but that did not take place. Patient at that time was treated conservatively and was discharged home and he presents today to the ER with worsening abdominal pain and was found to have alarming findingS on the CT scan; 1. Abnormal appearance of the distal sigmoid extending into the rectum over a length of 9.4 cm. There is diffuse wall thickening with narrowing of the lumen and findings suspicious for pneumatosis. Highly suspicious for ischemic disease. Underlying neoplasm not completely excluded. 2. Marked fluid and air distention of the small bowel. 3. Marked gaseous distention throughout the colon which has progressed. There is a change in caliber in the distal sigmoid in the area suspicious for ischemia. 4. Patient has a known RIGHT inguinal hernia containing a small bowel loop. There is mild fluid distention of this small bowel loop but no transition point. Less small bowel contained within the scrotum as compared to 09/03/2021. 5. Small LEFT pleural effusion and LEFT basilar atelectasis. 6. No definite free air identified. General surgery was consulted. Patient was seen and evaluated in the emergency department for potential intervention Hospital course(spent 11 days in the hospital) On 09/09 patient went to the OR for sigmoid colon diverticulitis with pneumatosis with complete obstruction findings, extensive scarring was noted around rectosigmoid colon, due to extensive pelvic scarring distal left ureter was inadvertently transected, status post extensive adhesiolysis sigmoid colon resection with Mccloud's procedure and colostomy, psoas hitch and implantation of left ureter to the bladder, Dr. Wang was consulted for left ureteral injury, left ureteral stent was placed after ureteral reimplantation with psoas hitch. Please see operative note for further details. Hospitalist service was consulted for postoperative management, patient developed sepsis, with leukocytosis 46,000, he was kept on broad-spectrum antibiotics( vancomycin, Flagyl and imipenem initially). Secondary to persistent leukocytosis antifungal caspofungin was added which helped to improve leukocytosis, he remained afebrile, blood cultures were sterile, a sample from LUIS EDUARDO drain was sent to rule out urinary diversion, creatinine of LUIS EDUARDO sample was consistent with Creatinine of BMP, repeat CT scan of abdomen pelvis revealed colitis which was a new finding since admission, C. difficile panel returned positive, he was started on p.o. vancomycin. Dr. Irwin, was consulted who deescalated IV antibiotics to p.o. Augmentin and p.o. fluconazole. IV metronidazole was added and vancomycin higher dose was chosen because of higher output from colostomy, he was putting on almost 1 L every day which resulted in hypomagnesemia and hypokalemia which were repleted aggressively. Dr. Irwin recommended adding 3 more days of Augmentin at the time of discharge, continuing antifungal until 09/30, 14-day of vancomycin 250 mg p.o. 4 times daily Patient was instructed to follow-up with Dr. Wang for cystogram Dr. Irwin will see him in October Received a phone call from patient's pharmacy that he is not able to afford vancomycin 250 mg hence I advised 125 mg of p.o. vancomycin 10-day regimen He was given magnesium, potassium supplements at the time of discharge and repeat BMP within 3 days Before his discharge he received 4 g of mag sulfate, 80 mEq of KCl Repeat blood cultures remain negative White count at the time of discharge 20,000 Patient was saturating well on room air at the time of discharge, For his surgical wound Dr. Reagan recommended abdominal binder Physical Exam Narrative: EXAM NARRATIVE: Patient eating breakfast On room air EOMI, PERRLA In good spirits Abdominal binder in place Castañeda catheter draining yellow-colored urine Edema of lower extremities Third spacing EOMI, PERRLA nonfocal neuro exam Urinary Catheter Management^: Castañeda: Cath Placed During This Visit: yes Urinary Catheter Date of Insertion: 09/09/21 Urinary Catheter Time of Insertion: 12:41 Discharge Data Data Completed and Pending: Completed Studies During Hospitalization Category Date Time Status CT abdomen pelvis w con* [id number] Stat Cat Scan 09/09/21 08:[address] chest abd pel w con* Routine Cat Scan 09/14/21 17:26 Completed XR chest 1V otilia ble [id number] Stat Exams 09/12/21 08:44 Completed Pathology: Surgic al [PTH] Routine Pth 09/09/21 17:37 Completed Pending at discharge Category Date Time Status Blood Culture Sta t Lab 09/18/21 11:53 Results Labs from last 24 hours 09/20/21 09/20/21 09/19/21 01:42 01:42 18:51 WBC 20.0 H RBC 3.43 L Hgb 11.0 L Hct 32.9 L MCV 95.9 H MCH 32.1 MCHC 33.4 RDW 13.1 Plt Count 555 H MPV 9.8 Neut % (Auto) 84.5 Lymph % (Auto) 6.0 Ray % (Auto) 8.0 Eos % (Auto) 0.4 Baso % (Auto) 0.4 Neut # (Auto) 16.89 H Lymph # (Auto) 1.2 Ray # (Auto) 1.6 H Eos # (Auto) 0.1 Baso # (Auto) 0.1 Nucleated RBC % (a uto) 0 Nucleated RBCs # 0.0 Sodium 137 135 L Potassium 3.0 L 2.7 L* Chloride 105 103 Carbon Dioxide 23 21 L Anion Gap 12.0 13.7 BUN 10 10 Creatinine 0.5 L 0.4 L GFR Calculation 166.4 H 215.2 H Glucose 114 90 Calculated Osmolal ity 284 L 279 L Calcium 7.0 L 7.0 L Magnesium 2.0 2.2 Beta-(1,3)-D-Gluca n B-(1,3)-D-Glucan I ntrp 09/14/21 20:01 WBC RBC Hgb Hct MCV MCH MCHC RDW Plt Count MPV Neut % (Auto) Lymph % (Auto) Ray % (Auto) Eos % (Auto) Baso % (Auto) Neut # (Auto) Lymph # (Auto) Ray # (Auto) Eos # (Auto) Baso # (Auto) Nucleated RBC % (a uto) Nucleated RBCs # Sodium Potassium Chloride Carbon Dioxide Anion Gap BUN Creatinine GFR Calculation Glucose Calculated Osmolal ity Calcium Magnesium Beta-(1,3)-D-Gluca n 67 H B-(1,3)-D-Glucan I ntrp Indeterminate A Vitals: Last Vital Signs Temp 98.1 F 09/20/21 07:20 Pulse 94 09/20/21 07:20 Resp 16 09/20/21 07:20 BP 121/73 09/20/21 07:20 Pulse Ox 98 09/20/21 07:20 Discharge Plan Discharge Patient Disposition: Home Condition: Stable Prescriptions: New fluconazole 100 mg Tablet 400 mg PO DAILY Qty: 10 RF: 0 Klor-Con M20 20 mEq Tablet,Er Particles/Crystals 40 meq PO DAILY Qty: 40 RF: 0 Magnesium Oxide [Magox] 400 mg PO BID Qty: 60 RF: 0 vancomycin 250 mg capsule 250 mg PO QID 14 Days Qty: 56 RF: 0 magnesium oxide 400 mg magnesium tablet 400 mg PO BID Qty: 60 RF: 0 Augmentin 875-125 mg tablet 1 tab PO BID Qty: 6 RF: 0 Continued sildenafil [Viagra] 50 mg tablet 50 mg PO DAILY PRN (Reason: sexual activity) Qty: 10 RF: 3 acetaminophen 500 mg Tablet 1,000 mg PO QPM RF: 0 nicotine 21 mg/24 hr Patch 24 Hour 1 patch TRANSDERMAL DAILY RF: 0 ondansetron HCl 4 mg tablet 4 mg PO TID PRN (Reason: Nausea) Qty: 30 RF: 0 cyclobenzaprine 10 mg tablet 10 mg PO BEDTIME PRN (Reason: Muscle Pain) RF: 0 Changed tamsulosin 0.4 mg capsule 0.4 mg PO DAILY@12 Qty: 30 RF: 0 Discontinued ibuprofen 200 mg Tablet 800 mg PO DAILY RF: 0 metronidazole [Flagyl] 500 mg tablet 500 mg PO Q8H RF: 0 ciprofloxacin HCl 500 mg tablet 500 mg PO Q12H RF: 0 Discharge Orders: Discharge Order (Routine); Ordered 09/20/21 Ordered By: Ty Sun Other Ambulatory Orders: Basic Metabolic Panel (Routine) Timeframe: 3 Days Facility: [facility] - Location: Lab - Main Lab Ordered By: Ty Sun Referrals: [facility] [Outside] Ceasar Leung MD [Physician] - 10/13/21 11:15 am (You have an appointment on October 13 at 11:15.) Vinnie Wang MD [Physician] - 1 week (Please call to make an appointment to be seen in one week.) Kathy Irwin MD [Hospitalist] - 10/05/21 (Please call to confirm the time of your appointment on October 05.) Discharge Diet: Cardiac Discharge Activity: Increase activity as tolerated Patient Instructions: Potassium Chloride (By mouth) (K-Dur, K-Leatha, K-Tab, Terell Mur), Amoxicillin/Clavulanate Potassium (By mouth) (Augmentin, Augmentin..., Fluconazole (By mouth) (Diflucan), Vancomycin (By mouth) (Vancocin, Firvanq), Magnesium Oxide (By mouth) (Mag-Ox 400, [facility]..., Colostomy Care (DC), C. Diff (Clostridioides Difficile) Infection (DC), Pneumonia (DC), Opioid Safety Discharge Attestations Time Spent in Discharge Care*: less than 30 min Quality Metrics Clinical Quality Measures During this hospital stay, did patient experience: None Coding Level of Care Code Acute Chg FW DC note Diagnoses Colitis due to Clostridium difficile A04.72 Leukocytosis D72.829 COPD (chronic obstructive pulmonary disease) J44.9 Ischemic bowel syndrome K55.9 Sepsis A41.9 Status post Jorge procedure Z93.[address] Z93.3 Status post exploratory laparotomy Z98.890 Diverticulitis K57.92 Smoker F17.200 Intraoperative ureteral injury N99.81 Pneumatosis intestinalis of large intestine K63.89
[2021-09-20 11:11] VITALS: BP 112/71; PULSE 90; RESP 16; TEMP 37.1; O2SAT 96
--- NOTE | 2021-09-20 11:42 | P.PN_ITS ---
Vitals/I&O/Wt Last Vital Signs Temp 98.8 F 09/20/21 11:11 Pulse 90 09/20/21 11:11 Resp 16 09/20/21 11:11 BP 112/71 09/20/21 11:11 Pulse Ox 96 09/20/21 11:11 09/19/21 09/20/21 09/20/21 22:59 06:59 14:59 Intake Total 800 / 1884 200 / 2084 120 / 120 Output Total 650 / 1100 1000 / 2100 850 / 850 Balance 150 / 784 -800 / -16 -730 / -730 Weight last 48 hrs Weight 141 lb Weight 150 lb 14.4 oz Physical Exam Urinary Catheter Management^: Castañeda: Cath Placed During This Visit: yes Urinary Catheter Date of Insertion: 09/09/21 Urinary Catheter Time of Insertion: 12:41 Data : 09/20/21 01:42 09/20/21 01:42 Micro: Microbiology 09/14/21 20:01 Blood Culture - Final Blood NO GROWTH AFTER 5 DAYS 09/14/21 19:56 Blood Culture - Final Blood NO GROWTH AFTER 5 DAYS 09/18/21 11:53 Blood Culture - Preliminary Blood NEGATIVE TO DATE 09/18/21 11:53 Blood Culture - Preliminary Blood NEGATIVE TO DATE 09/16/21 23:15 Urine Culture - Final Urine,Clean Catch A&P Additional A&P Information 66-year-old male who is postop day 11 from Jorge procedure. His discharge has been complicated by C. difficile infection and electrolyte abnormalities. Today his white count has been decreasing and his electrolytes are improved, I administered 40 mEq of IV potassium to assist in correcting his low potassium. Once his electrolytes are corrected he may be discharged. From surgery standpoint as the colon has been removed and as he has developed C. difficile infection I do not see the need for Augmentin but will defer to infectious disease and internal medicine for this. Otherwise patient is ready for discharge as he is hemodynamically normal, his wounds are clean and they have been examined to be healthy, and his ostomy is productive. He is also ambulating and tolerating a diet, he promises to use his incentive spirometer at home. Attestations Medical Necessity Statement*: Hospital stay was necessary due to recovery from major operation Coding Level of Care Code Acute Distribution Accounting Clerk for Cherri Gasca
[2021-09-20] MEDS: tamsulosin 0.4 mg Capsule PO (12:13)
[2021-09-20 14:16] VITALS: BP 112/71; PULSE 90; RESP 16; TEMP 37.1; O2SAT 96
== END 2021-09-20 14:31 | disposition home or self-care (01) | DRG 853 ==
LOC: ER 10:14 → OR 10:18 → ICU 16:39 → MEDSURG 09-10 20:23
PROVIDERS: Internal Medicine; Surgery; Urology; Admitting Provider Surgery; Emergency Provider Emergency Medicine; Visit Provider Internal Medicine
PROC: 0DTN0ZZ Resection of Sigmoid Colon, Open Approach (ICD-10-PCS; CPT 49000; principal; 2021-09-09 11:30)
PROC: 0DTN0ZZ Resection of Sigmoid Colon, Open Approach (ICD-10-PCS; 2021-09-09 11:30)
PROC: 0DTN0ZZ Resection of Sigmoid Colon, Open Approach (ICD-10-PCS; CPT 44950; 2021-09-09 11:30)
PROC: 0TS70ZZ Reposition Left Ureter, Open Approach (ICD-10-PCS; 2021-09-09 11:30)
PROC: 0DTN0ZZ Resection of Sigmoid Colon, Open Approach (ICD-10-PCS; CPT 44320; 2021-09-09 11:30)
DX: A41.9 Sepsis, unspecified organism (principal); J18.9 Pneumonia, unspecified organism; K40.30 Unilateral inguinal hernia, with obstruction, without gangrene, not specified as recurrent; N99.72 Accidental puncture and laceration of a genitourinary system organ or structure during other procedure; J90 Pleural effusion, not elsewhere classified; B49 Unspecified mycosis; A04.72 Enterocolitis due to Clostridium difficile, not specified as recurrent; K57.32 Diverticulitis of large intestine without perforation or abscess without bleeding; K55.9 Vascular disorder of intestine, unspecified; K63.89 Other specified diseases of intestine; F17.210 Nicotine dependence, cigarettes, uncomplicated; E83.42 Hypomagnesemia; E87.6 Hypokalemia; Z91.19 Patient's noncompliance with other medical treatment and regimen; R00.0 Tachycardia, unspecified; E86.0 Dehydration; K21.9 Gastro-esophageal reflux disease without esophagitis; I10 Essential (primary) hypertension; J43.9 Emphysema, unspecified
CPT/HCPCS: 12345; 36415; 36600; 51702; 71045; 71260; 74177; 80048; 80051; 80053; 80202; 80500; 81001; 82040; 82330; 82570; 82805; 83605; 83615; 83690; 83735; 84134; 84146; 85007; 85025; 85027; 87040; 87086; 87426; 87449; 87493; 87635; 88184; 88185; 88304; 88309; 93005; 94002; 94640; 94799; 96365; 96367; 96372; 96375; 99285; C9290; J0330; J0637; J0743; J1100; J1170; J1200; J1644; J2270; J2405; J2543; J2704; J3010; J3370; J3475; J3480; J3490; J7030; J7040; J7050; J7626; P9041; Q9967; S0030

== ENCOUNTER 2021-09-30 07:40 | Outpatient (CLI) | payer MEDICARE, OTHER, SELFPAY ==
--- NOTE | 2021-09-30 08:30 | FL_ITS ---
WS: [id number] Retrograde cystogram, 09/30/2021 Clinical Data: Retrograde urinary catheter, left ureteral stent. Comparison: None. Fluoroscopy time: .7 minutes. Findings: There is a left ureteral stent. There is a left lower quadrant colostomy. There is a right inguinal h ernia containing bowel. There is a moderate amount of fecal material in the ascending colon. Approxim ately 100 mL of contrast were injected in retrograde fashion to fill the urinary bladder. There were no diverticula or extravasation. The bladder configuration was normal. After the contrast was removed there was no evidence of any contrast remaining in the bladder or outside the bladder. FL/FL cystogram [id number] Impression: Normal retrograde cystogram.
== END 2021-09-30 07:41 | disposition home or self-care (01) ==
LOC: RAD 07:49
PROVIDERS: PCP Nurse Practitioner Family; Visit Provider Urology
DX: Z96.0 Presence of urogenital implants (principal)
CPT/HCPCS: 74430

== ENCOUNTER 2021-11-01 12:00 | Outpatient (CLI) | payer MEDICARE, SELFPAY ==
--- NOTE | 2021-11-01 12:15 | XR_ITS ---
WS: [id number] XR KUB [id number] REASON FOR EXAM: INTRAOPERATIVE URETERAL INJURY FINDINGS: Left ureteral stent with some distal migration and uncoiling of the proximal loop. No urinary tract calculi identified. Unremarkable bowel gas pattern. Colostomy and left lower quadrant. Staple line in the mid and lower pelvis. XR/XR KUB [id number] IMPRESSION: Left ureteral stent and postoperative findings as above.
== END 2021-11-01 12:01 | disposition home or self-care (01) ==
LOC: RAD 12:03
PROVIDERS: PCP Nurse Practitioner Family; Visit Provider Urology
DX: N99.81 Other intraoperative complications of genitourinary system (principal); Z96.0 Presence of urogenital implants; R82.71 Bacteriuria
CPT/HCPCS: 74018; 81003; 87077; 87086; 87184